=== PATIENT | male | born 1945 ===

== ENCOUNTER 2017-11-08 22:29 | Inpatient (IN) | payer MEDICARE, MEDICAID ==
[2017-11-08] MEDS ORDERED: Albuterol-Ipratrop 3 mg / 0.5 (3 ml) UD ONE ×2 (22:48→23:23)
[2017-11-08] MEDS ORDERED: MethylPREDNISolone 40 mg Vial IVP STA (22:54)
[2017-11-08] MEDS ORDERED: Albuterol-Ipratrop 3 mg / 0.5 (3 ml) UD INH STA ×2 (22:54)
--- NOTE | 2017-11-08 22:58 | C.PDOC ---
History Of Present Illness 72 yo male, h/o of dementia as per previous record, copd, [facility] for wheezing and "agitation". as per record, pt was agitated wiht staff. pt upon arrival calm and cooperative. wheezing b/l. pt oriented x 1. no other complaints. noted previous record with h/o dementia with agiation. Time Seen by Provider: 11/08/17 22:51 Chief Complaint (Nursing): Psychiatric Evaluation Past Medical History Reviewed: Historical Data, Nursing Documentation, Vital Signs Vital Signs: Last Vital Signs Temp 98 F 11/09/17 00:30 Pulse 92 H 11/09/17 00:30 Resp 20 11/09/17 00:45 BP 120/65 11/09/17 00:30 Pulse Ox 95 11/09/17 02:58 - Medical History PMH: Anxiety, Arthritis, CAD, CHF, COPD, Dementia, Emphysema, HTN Denies: Chronic Kidney Disease - [facility] Procedures ASSISTANCE WITH RESPIRATORY VENTILATION, <24 HRS, CPAP (04/19/17) CL REDUC DISLOC-SHOULDER (10/29/12) INTRODUCTION OF ANTI-INFLAM INTO RESP TRACT, VIA OPENING (04/19/17) Family History: States: Unknown Family Hx - Social History Hx Tobacco Use: Yes Hx Alcohol Use: No Hx Substance Use: No - Immunization History Hx Tetanus Toxoid Vaccination: No Hx Influenza Vaccination: Yes Hx Pneumococcal Vaccination: Yes Review Of Systems Respiratory: Positive for: Wheezing Psych: Positive for: Other (agiation) Physical Exam - Physical Exam Appears: Well, No Acute Distress, Other (calm cooperative, oriented x 1) Skin: Normal Color, Warm, Dry Eye(s): bilateral: Normal Inspection, PERRL, EOMI Nose: Normal Throat: Normal Neck: Normal Cardiovascular: Rhythm Regular Respiratory: Wheezing (bl) Gastrointestinal/Abdominal: Normal Exam, Soft, No Tenderness, No Guarding, No Rebound Back: Normal Inspection Extremity: Normal ROM ED Course And Treatment - Laboratory Results Result Diagrams: 11/08/17 23:03 11/08/17 23:03 ECG: Interpreted By Me, Viewed By Me ECG Rhythm: Sinus Rhythm Interpretation Of ECG: No ST/T wave changes Rate From EC (BPM) O2 Sat by Pulse Oximetry: 95 (ON RA) Pulse Ox Interpretation: Normal - Radiology CXR: Interpreted by Me, Viewed By Me CXR Interpretation: Yes: No Acute Disease. No: Infiltrates Medical Decision Making Medical Decision Making: copd, r/o delirium vs dementia. labs imaging pending wheezing improving. head ct neg. cxr neg. r/o deliriumvs dementia. pt cannot be medically cleared for pyschiatric eval, accepted by dr beverly sanabria. Disposition - Disposition Disposition: HOSPITALIZED Disposition Time: 02:00 Condition: GOOD - Clinical Impression Clinical Impression: COPD exacerbation, Agitation
[2017-11-08 23:06] LABS: BASO % 0.2 % (0.0-2.0); EOS # 0.1 K/uL (0.0-0.7); EOS % 0.6 % (0.0-4.0); HEMOGLOBIN 12.8 g/dL (12.0-18.0); LYMPH # 3.4 K/uL (1.0-4.3); LYMPH % 31.2 % (20.0-40.0); MEAN CELL VOLUME 79.7 fL (80.0-94.0); MEAN CORPUSCULAR HEMOGLOBIN 26.2 pg (27.0-31.0); MEAN CORPUSCULAR HGB CONC 32.9 g/dL (33.0-37.0); MEAN PLATELET VOLUME 7.3 fL (7.2-11.7); MONO # 1.2 K/uL (0.0-0.8); MONO % 11.1 % (0.0-10.0); NEUT # 6.3 K/uL (1.8-7.0); NEUT % 56.9 % (50.0-75.0); RBC 4.87 Mil/uL (4.40-5.90); RED CELL DISTRIBUTION WIDTH 17.1 % (11.5-14.5)
[2017-11-08 23:17] LABS: PROTHROMBIN TIME 10.6 SECONDS (9.7-12.2)
[2017-11-08 23:23] LABS: ACETAMINOPHEN < 10.0 ug/mL (10.0-30.0); SALICYLATE < 1.0 mg/dL 1
[2017-11-08 23:26] LABS: ALB/GLOB RATIO 1.3 (1.0-2.1); ALT/SGPT 22 U/L (21-72); AST/SGOT 26 U/L (17-59); BLOOD UREA NITROGEN 13 mg/dL (9-20); CALCIUM 8.7 mg/dl (8.6-10.4); GFR NON-AFRICAN AMERICAN > 60
[2017-11-09] MEDS: MethylPREDNISolone 40 mg Vial IVP SCH ×3 (05:27→22:36)
[2017-11-09] MEDS ORDERED: Fluticasone-Salmeterol 250-50mcg Diskus INH SCH ×2 (08:00→20:00)
--- NOTE | 2017-11-09 08:43 | CT ---
Date of service: 11/08/2017 PROCEDURE: CT HEAD WITHOUT CONTRAST. HISTORY: Altered mental status COMPARISON: None available. TECHNIQUE: Axial computed tomography images were obtained through the head/brain without intravenous contrast. Radiation dose: Total exam DLP = 1097 mGy-cm. This CT exam was performed using one or more of the following dose reduction techniques: Automated exposure control, adjustment of the mA and/or kV according to patient size, and/or use of iterative reconstruction technique. FINDINGS: HEMORRHAGE: No intracranial hemorrhage. BRAIN: Cerebral and cerebellar atrophy. Scattered focal lucencies in the subcortical and periventricular white matter suggestive for severe chronic microvascular ischemic change. Right basal ganglia lacunar infarct. Relative atrophy of the anterior temporal lobes. VENTRICLES: Prominent. CALVARIUM: Unremarkable. PARANASAL SINUSES: Unremarkable as visualized. No significant inflammatory changes. MASTOID AIR CELLS: Unremarkable as visualized. No inflammatory changes. OTHER FINDINGS: Intracranial arterial calcifications. IMPRESSION: Cerebral and cerebellar atrophy. Small vessel ischemic/degenerative changes. If symptoms persist, consider correlation with MRI. These findings were preliminarily reported at 11:25 p.m. on 11/08/[address] Kareem Chong from [facility].
--- NOTE | 2017-11-09 09:09 | RAD ---
Date of service: 11/08/2017 PROCEDURE: CHEST RADIOGRAPH, 1 VIEW HISTORY: chest pain COMPARISON: No comparison chest x-ray. A right shoulder 10/29/2012 study noted FINDINGS: LUNGS: No consolidation. AP apical lordotic projection. Lung volumes appear increased-hemidiaphragms appear flattened. COPD/emphysema inferred. Trace bibasilar discoid atelectasis and/or trace fibrosis here. No acute cardiopulmonary pathology perceived. PLEURA: No pneumothorax or pleural fluid seen. CARDIOVASCULAR: Normal. OSSEOUS STRUCTURES: A approximately 1 cm hyperdensity projects over the inferior aspect of the right acromion not appreciated on the 2013 right shoulder x-ray. An interval calcific bursitis and/or calcific rotator cuff tendinopathy here are considerations. There is equivocal lucency an equivocal subtle cortical irregularity of the right humeral head on this exam oval unclear significance is no history of trauma. Correlate clinically. If symptoms do exist on the right side consider right shoulder x-ray for further evaluation Cervical degenerative osseous hypertrophic changes. VISUALIZED UPPER ABDOMEN: Normal. OTHER FINDINGS: Surgical clips over left neck IMPRESSION: No acute cardiopulmonary pathology. Bilateral hyperaeration - COPD/ emphysema suspect. Right shoulder changes as above. Correlate clinically as detailed above
[2017-11-09] MEDS ORDERED: Metoprolol Succinate 25 mg XL Tab PO SCH (10:00)
--- NOTE | 2017-11-09 10:28 | PCM.PSYCH ---
Initial Psychiatric Evaluation - Initial Psychiatric Evaluation Chief Complaint (in patient's own words): "you ask too many questions" History of Present Illness and Precipitating Events: PGY-1 Initial Psychiatric Note for Dr. Adams. Patient is a 72 year old male with past history of dementia, COPD, HTN, CAD who is ( lives in [place]), has 3 children, lives in a prison and is a retired [employer] worker. Patient is a poor historian, History was obtained partially from patient and partially from EMR. Patient was [facility] ED from [facility] for agitation and shortness of breath and was admitted for COPD exacerbation. In ED, patient noted to be calm and cooperative. Presently, during my interview patient is noted to be calm and oriented x1 (person) only. When asked for the month and date, patient states "I don't know. I don't keep track of that stuff." Patient states he does not know why he is in the hospital. Denies visual and auditory hallucinations, paranoia, depression, anhedonia, difficulty sleeping, decreased energy, change in appetite , suicidal ideation, homicidal ideation, anxiety and manic symptoms. Denies urinary frequency, hematuria, dysuria, fevers and chills. PMHx: Dementia, COPD, HTN, CAD Psych hospitalizations: none Family Psych hx: unkown Social Hx: former smoker, occasional alcohol use, denies illicit drugs Current Medications: Active Medications Generic Name Dose Route Start Last Admin Trade Name Freq PRN Reason Stop Dose Admin Clopidogrel Bisulfate 75 mg 11/09/17 10:00 Plavix PO DAILY [facility] Clotrimazole 1 gm 11/09/17 10:00 Lotrimin 1% TOP DAILY [facility] Enoxaparin Sodium 40 mg 11/09/17 10:00 Lovenox SC DAILY [facility] Azithromycin 500 mg/ Sodium 250 mls @ 250 mls/hr 11/09/17 10:00 Chloride IVPB DAILY [facility] Protocol Ceftriaxone Sodium 1 gm/ 100 mls @ 100 mls/hr 11/09/17 10:00 Sodium Chloride IVPB DAILY [facility] Protocol Lactic Acid 1 gm 11/09/17 10:00 Lac-Hydrin 12% Lotion (225 G) TOP BID [facility] Methylprednisolone 40 mg 11/09/17 06:00 11/09/17 05:27 Solu-Medrol IVP 40 mg Q8H [facility] Administration Metoprolol Succinate 25 mg 11/09/17 10:00 Toprol Xl PO DAILY [facility] Montelukast Sodium 10 mg 11/09/17 22:00 Singulair PO HS [facility] Pantoprazole Sodium 40 mg 11/09/17 10:00 Protonix Ec Tab PO DAILY [facility] Quetiapine Fumarate 25 mg 11/09/17 10:00 Seroquel PO BID [facility] Fluticasone/Salmeterol 1 puff 11/09/17 08:00 Advair Diskus 250/50 INH RQ12 [facility] Past Psychiatric History - Past Psychiatric History Pertinent Medical Hx (Current Medical&Sleep Prob, Allergies): Allergies Allergy/AdvReac Type Severity Reaction Status Date / Time shellfish derived Allergy ANAPHYLAXIS Verified 11/08/17 22:32 Acetaminophen [Tylenol 325mg tab] 2 tab PO Q4 PRN 04/20/17 Albuterol 0.083% [Albuterol 0.083% Inhal Josey (2.5 mg/3 ml) UD] 3 ml INH Q6 PRN 04/20/17 Metoprolol Succinate XL [Toprol XL] 25 mg PO DAILY 04/20/17 Ammonium Lactate 12% [Lac-Hydrin] 1 TP BID 11/08/17 Budesonide/Formoterol Fumarate [Symbicort] 1 aer IH BID 11/08/17 Clopidogrel [Plavix] 75 mg PO DAILY 11/08/17 Clotrimazole 1% [Lotrimin AF 1%] 10 applic EXT HS 11/08/17 QUEtiapine [Seroquel] 25 mg PO BID 11/08/17 predniSONE [Prednisone] 10 mg PO DAILY 11/08/17 Review of Systems - Psychiatric Psychiatric: Other (disoriented to time and place). absent: Abnormal Sleep Pattern, Anhedonia, Anxiety, Auditory Hallucinations, Change in Appetite, Depression, Difficulty Concentrating, Hallucinations, Homicidal Ideation, Hopelessness, Irritability, Memory Loss, Mood Swings, Panic Attacks, Paranoia, Suicidal Ideation, Visual Hallucinations, Tactile Hallucinations Mental Status Examination - Personal Presentation Personal Presentation: Looks stated age - Affect Affect: Broad - Motor Activity Motor Activity: Calm, Other (lip smacking) - Reliability in Providing Information Reliability in Providing Information: Poor, due to cognitve impairment - Speech Speech: Organized - Mood Mood: Other (appropriate) - Cognitive Functions Orientation: Person Sensorium: Alert Attention/Concentration: Easily distracted Estimate of Intelligence: Average Judgement: Imparied, as evidence by: Lack of insight into illness Memory: Recent imparied as evidence by:Inability to complete 3/3 object recall - Risk Risk: Other (cognitive impairment) - Limitations Limitations: Decreased memory, recent DSM 5 DX - DSM 5 DSM 5 Diagnosis: Major neurocognitive disorder - Recommended/Plan of Treatment Treatment Recommendations and Plan of Treatment: Afebrile, continue to monitor rule out source of infection [place] patient Maintain strict day/night cycle MMSE score of 13 with deficits in orientation, attention, and recall, indicating moderate cognitive impairment. - Smoking Cessation Smoking Cessation Initiated: No
[2017-11-09] MEDS: Enoxaparin 40 mg Syringe SC SCH (11:19)
[2017-11-09] MEDS: Pantoprazole 40 mg EC Tab PO SCH (11:19)
[2017-11-09] MEDS: Azithromycin 500 MG in Sodium Chloride 0.9% 250 ML IVPB SCH (11:21)
[2017-11-09] MEDS: Clotrimazole 1% Cream 15 GM TUBE TOP SCH (13:43)
[2017-11-09] MEDS: Ammonium Lactate 12% Lotion (225 g) TOP SCH ×2 (13:44→18:38)
--- NOTE | 2017-11-09 15:17 | CP.PCM.CON ---
Past Patient History - Past Medical History & Family History Past Medical History?: Yes - Past Social History Smoking Status: Former Smoker - CARDIAC Hx Congestive Heart Failure: Yes Hx Hypertension: Yes - PULMONARY Hx Chronic Obstructive Pulmonary Disease (COPD): Yes - NEUROLOGICAL Hx Dementia: Yes - HEENT Hx HEENT Problems: No Hx Cataracts: Yes - RENAL Hx Chronic Kidney Disease: No - ENDOCRINE/METABOLIC Hx Endocrine Disorders: Yes Hx Diabetes Mellitus Type 2: Yes - HEMATOLOGICAL/ONCOLOGICAL Hx Blood Disorders: No - INTEGUMENTARY Hx Dermatological Problems: No - MUSCULOSKELETAL/RHEUMATOLOGICAL Hx Arthritis: Yes - GASTROINTESTINAL Hx Gastrointestinal Disorders: No - GENITOURINARY/GYNECOLOGICAL Hx Genitourinary Disorders: No - PSYCHIATRIC Hx Anxiety: Yes Hx Substance Use: No - SURGICAL HISTORY Hx Surgeries: No - ANESTHESIA Hx Anesthesia: No Meds Allergies/Adverse Reactions: Allergies Allergy/AdvReac Type Severity Reaction Status Date / Time shellfish derived Allergy ANAPHYLAXIS Verified 11/08/17 22:32 - Medications Medications: Current Medications Clopidogrel Bisulfate (Plavix) 75 mg PO DAILY [facility] Last Admin: 11/09/17 11:18 Dose: 75 mg Clotrimazole (Lotrimin 1%) 1 gm TOP DAILY [facility] Last Admin: 11/09/17 13:43 Dose: 1 applic Enoxaparin Sodium (Lovenox) 40 mg SC DAILY [facility] Last Admin: 11/09/17 11:19 Dose: 40 mg Azithromycin 500 mg/ Sodium (Chloride) 250 mls @ 250 mls/hr IVPB DAILY [facility] PRN Reason: Protocol Last Admin: 11/09/17 11:21 Dose: 250 mls/hr Ceftriaxone Sodium 1 gm/ (Sodium Chloride) 100 mls @ 100 mls/hr IVPB DAILY [facility] PRN Reason: Protocol Last Admin: 11/09/17 11:21 Dose: 100 mls/hr Lactic Acid (Lac-Hydrin 12% Lotion (225 G)) 1 gm TOP BID [facility] Last Admin: 11/09/17 13:44 Dose: Not Given Methylprednisolone (Solu-Medrol) 40 mg IVP Q8H [facility] Last Admin: 11/09/17 13:43 Dose: 40 mg Metoprolol Succinate (Toprol Xl) 25 mg PO DAILY [facility] Last Admin: 11/09/17 11:18 Dose: 25 mg Montelukast Sodium (Singulair) 10 mg PO [facility] Pantoprazole Sodium (Protonix Ec Tab) 40 mg PO DAILY [facility] Last Admin: 11/09/17 11:19 Dose: 40 mg Quetiapine Fumarate (Seroquel) 25 mg PO BID [facility] Last Admin: 11/09/17 11:18 Dose: 25 mg Fluticasone/Salmeterol (Advair Diskus 250/50) 1 puff INH RQ12 [facility] Results - Vital Signs Recent Vital Signs: Last Vital Signs Temp 97.4 F L 11/09/17 07:33 Pulse 86 11/09/17 07:33 Resp 18 11/09/17 07:33 BP 143/79 11/09/17 07:33 Pulse Ox 97 11/09/17 07:33 - Labs Result Diagrams: 11/08/17 23:03 11/08/17 23:03 Labs: Laboratory Results - last 24 hr 11/08/17 11/08/17 11/08/17 22:35 23:03 23:03 WBC 11.0 H RBC 4.87 Hgb 12.8 Hct 38.8 MCV 79.7 L MCH 26.2 L MCHC 32.9 L RDW 17.1 H Plt Count 292 MPV 7.3 Neut % (Auto) 56.9 Lymph % (Auto) 31.2 [place] % (Auto) 11.1 H Eos % (Auto) 0.6 Baso % (Auto) 0.2 Neut # (Auto) 6.3 Lymph # (Auto) 3.4 [place] # (Auto) 1.2 H Eos # (Auto) 0.1 Baso # (Auto) 0.0 PT 10.6 INR 1.0 APTT 29 Sodium Potassium Chloride Carbon Dioxide Anion Gap BUN Creatinine Est GFR ( Amer) Est GFR (Non-Af Amer) POC Glucose (mg/dL) 111 H Random Glucose Calcium Total Bilirubin AST ALT Alkaline Phosphatase Troponin I Total Protein Albumin Globulin Albumin/Globulin Ratio Salicylates Acetaminophen Alcohol, Quantitative 11/08/17 11/08/17 23:03 23:03 WBC RBC Hgb Hct MCV MCH MCHC RDW Plt Count MPV Neut % (Auto) Lymph % (Auto) [place] % (Auto) Eos % (Auto) Baso % (Auto) Neut # (Auto) Lymph # (Auto) [place] # (Auto) Eos # (Auto) Baso # (Auto) PT INR APTT Sodium 140 Potassium 4.0 Chloride 105 Carbon Dioxide 21 L Anion Gap 18 BUN 13 Creatinine 0.7 L Est GFR ( Amer) > 60 Est GFR (Non-Af Amer) > 60 POC Glucose (mg/dL) Random Glucose 102 Calcium 8.7 Total Bilirubin 0.2 AST 26 ALT 22 Alkaline Phosphatase 59 Troponin I < 0.0120 Total Protein 7.0 Albumin 4.0 Globulin 3.1 Albumin/Globulin Ratio 1.3 Salicylates < 1.0 Acetaminophen < 10.0 L Alcohol, Quantitative < 10
--- NOTE | 2017-11-09 16:03 | CP.PCM.HP ---
History of Present Illness - History of Present Illness History of Present Illness: 80-year-old male date PMH of anxiety, CAD, COPD, CHF, emphysema, HTN sent from [facility] for wheezing and agitation. Patient is calm and cooperative upon arrival. No fever, chills, abdominal pain, palpitations, chest pain. Noted previous record with history of dementia with agitation Present on Admission - Present on Admission Any Indicators Present on Admission: No Past Patient History - Past Medical History & Family History Past Medical History?: Yes - Past Social History Smoking Status: Former Smoker - CARDIAC Hx Congestive Heart Failure: Yes Hx Hypertension: Yes - PULMONARY Hx Chronic Obstructive Pulmonary Disease (COPD): Yes - NEUROLOGICAL Hx Dementia: Yes - HEENT Hx HEENT Problems: No Hx Cataracts: Yes - RENAL Hx Chronic Kidney Disease: No - ENDOCRINE/METABOLIC Hx Endocrine Disorders: Yes Hx Diabetes Mellitus Type 2: Yes - HEMATOLOGICAL/ONCOLOGICAL Hx Blood Disorders: No - INTEGUMENTARY Hx Dermatological Problems: No - MUSCULOSKELETAL/RHEUMATOLOGICAL Hx Arthritis: Yes - GASTROINTESTINAL Hx Gastrointestinal Disorders: No - GENITOURINARY/GYNECOLOGICAL Hx Genitourinary Disorders: No - PSYCHIATRIC Hx Anxiety: Yes Hx Substance Use: No - SURGICAL HISTORY Hx Surgeries: No - ANESTHESIA Hx Anesthesia: No Meds Allergies/Adverse Reactions: Allergies Allergy/AdvReac Type Severity Reaction Status Date / Time shellfish derived Allergy ANAPHYLAXIS Verified 11/08/17 22:32 Physical Exam - Constitutional Appears: Well - Head Exam Head Exam: ATRAUMATIC, NORMAL INSPECTION, NORMOCEPHALIC - Eye Exam Eye Exam: EOMI, Normal appearance, PERRL Pupil Exam: NORMAL ACCOMODATION, PERRL - ENT Exam ENT Exam: Mucous Membranes Moist, Normal Exam - Neck Exam Neck exam: Positive for: Normal Inspection - Respiratory Exam Respiratory Exam: Decreased Breath Sounds - Cardiovascular Exam Cardiovascular Exam: REGULAR RHYTHM, +S1, +S2 - GI/Abdominal Exam GI & Abdominal Exam: Diminished Bowel Sounds, Soft - Rectal Exam Rectal Exam: Deferred Results - Vital Signs Recent Vital Signs: Last Vital Signs Temp 97.4 F L 11/09/17 07:33 Pulse 86 11/09/17 07:33 Resp 18 11/09/17 07:33 BP 143/79 11/09/17 07:33 Pulse Ox 97 11/09/17 07:33 - Labs Result Diagrams: 11/12/17 06:53 09/07/18 06:53 Labs: Laboratory Results - last 24 hr 11/08/17 11/08/17 11/08/17 22:35 23:03 23:03 WBC 11.0 H RBC 4.87 Hgb 12.8 Hct 38.8 MCV 79.7 L MCH 26.2 L MCHC 32.9 L RDW 17.1 H Plt Count 292 MPV 7.3 Neut % (Auto) 56.9 Lymph % (Auto) 31.2 [place] % (Auto) 11.1 H Eos % (Auto) 0.6 Baso % (Auto) 0.2 Neut # (Auto) 6.3 Lymph # (Auto) 3.4 [place] # (Auto) 1.2 H Eos # (Auto) 0.1 Baso # (Auto) 0.0 PT 10.6 INR 1.0 APTT 29 Sodium Potassium Chloride Carbon Dioxide Anion Gap BUN Creatinine Est GFR ( Amer) Est GFR (Non-Af Amer) POC Glucose (mg/dL) 111 H Random Glucose Calcium Total Bilirubin AST ALT Alkaline Phosphatase Troponin I Total Protein Albumin Globulin Albumin/Globulin Ratio Salicylates Acetaminophen Alcohol, Quantitative 11/08/17 11/08/17 23:03 23:03 WBC RBC Hgb Hct MCV MCH MCHC RDW Plt Count MPV Neut % (Auto) Lymph % (Auto) [place] % (Auto) Eos % (Auto) Baso % (Auto) Neut # (Auto) Lymph # (Auto) [place] # (Auto) Eos # (Auto) Baso # (Auto) PT INR APTT Sodium 140 Potassium 4.0 Chloride 105 Carbon Dioxide 21 L Anion Gap 18 BUN 13 Creatinine 0.7 L Est GFR ( Amer) > 60 Est GFR (Non-Af Amer) > 60 POC Glucose (mg/dL) Random Glucose 102 Calcium 8.7 Total Bilirubin 0.2 AST 26 ALT 22 Alkaline Phosphatase 59 Troponin I < 0.0120 Total Protein 7.0 Albumin 4.0 Globulin 3.1 Albumin/Globulin Ratio 1.3 Salicylates < 1.0 Acetaminophen < 10.0 L Alcohol, Quantitative < 10 Assessment & Plan - Assessment and Plan (Free Text) Plan: family bedside patient is confused claims patient is in [place] 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
[2017-11-09] MEDS ORDERED: Albuterol 0.083% Inhal Sol (2.5 mg/3 mL) UD INH PRN (18:17)
[2017-11-09] MEDS ORDERED: DiphenhydrAMINE 50 mg/ml Inj IVP ONE (23:18)
[2017-11-10] MEDS: MethylPREDNISolone 40 mg Vial IVP SCH ×3 (06:37→21:42)
--- NOTE | 2017-11-10 09:14 | CARD ---
APPROVED REPORT Date of service: 11/08/2017 EKG Measurement Heart [id number] <Conclusion> Normal sinus rhythm Normal ECG
[2017-11-10] MEDS: Enoxaparin 40 mg Syringe SC SCH (10:00)
[2017-11-10] MEDS: Ammonium Lactate 12% Lotion (225 g) TOP SCH ×2 (11:31→17:26)
[2017-11-10] MEDS: Pantoprazole 40 mg EC Tab PO SCH (11:31)
[2017-11-10] MEDS: Clotrimazole 1% Cream 15 GM TUBE TOP SCH (11:31)
[2017-11-10] MEDS: Azithromycin 500 MG in Sodium Chloride 0.9% 250 ML IVPB SCH (11:33)
[2017-11-10] MEDS: Albuterol 0.083% Inhal Sol (2.5 mg/3 mL) UD INH SCH ×2 (13:43→20:41)
[2017-11-10] MEDS ORDERED: MethylPREDNISolone 40 mg Vial IVP SCH (18:00)
--- NOTE | 2017-11-10 19:06 | CP.PCM.PN ---
Subjective - Date & Time of Evaluation Date of Evaluation: 11/10/17 Time of Evaluation: 19:06 Objective - Vital Signs/Intake and Output Vital Signs (last 24 hours): Temp Pulse Resp BP Pulse Ox 98.6 F 78 18 132/78 94 L 11/10/17 16:00 11/10/17 16:00 11/10/17 16:00 11/10/17 16:00 11/10/17 16:00 Intake and Output: 11/10/17 11/11/17 18:59 06:59 Output Total 800 Balance -800 - Medications Medications: Current Medications Albuterol Sulfate (Albuterol 0.083% Inhal Josey (2.5 Mg/3 Ml) Ud) 2.5 mg INH RQ6 [facility] Last Admin: 11/10/17 13:43 Dose: 2.5 mg Clopidogrel Bisulfate (Plavix) 75 mg PO DAILY [facility] Last Admin: 11/10/17 11:32 Dose: Not Given Clotrimazole (Lotrimin 1%) 1 gm TOP DAILY [facility] Last Admin: 11/10/17 11:31 Dose: 1 applic Donepezil HCl (Aricept) 5 mg PO HS [facility] Enoxaparin Sodium (Lovenox) 40 mg SC DAILY [facility] Last Admin: 11/10/17 10:00 Dose: 40 mg Haloperidol (Haldol) 2 mg PO Q6H PRN PRN Reason: Agitation Last Admin: 11/10/17 14:18 Dose: 2 mg Azithromycin 500 mg/ Sodium (Chloride) 250 mls @ 250 mls/hr IVPB DAILY [facility] PRN Reason: Protocol Last Admin: 11/10/17 11:33 Dose: 250 mls/hr Ceftriaxone Sodium 1 gm/ (Sodium Chloride) 100 mls @ 100 mls/hr IVPB DAILY [facility] PRN Reason: Protocol Last Admin: 11/10/17 11:32 Dose: 100 mls/hr Lactic Acid (Lac-Hydrin 12% Lotion (225 G)) 1 gm TOP BID [facility] Last Admin: 11/10/17 17:26 Dose: 1 applic Methylprednisolone (Solu-Medrol) 40 mg IVP Q8H [facility] Last Admin: 11/10/17 14:19 Dose: 40 mg Montelukast Sodium (Singulair) 10 mg PO HS [facility] Last Admin: 11/09/17 22:36 Dose: 10 mg Pantoprazole Sodium (Protonix Ec Tab) 40 mg PO DAILY [facility] Last Admin: 11/10/17 11:31 Dose: 40 mg Propranolol HCl (Inderal) 10 mg PO TID [facility] Last Admin: 11/10/17 17:25 Dose: 10 mg Quetiapine Fumarate (Seroquel) 25 mg PO BID [facility] Last Admin: 11/10/17 18:21 Dose: 25 mg Fluticasone/Salmeterol (Advair Diskus 250/50) 1 puff INH RQ12 [facility] - Labs Labs: 11/08/17 23:03 11/08/17 23:03 PT 10.6 SECONDS (9.7-12.2) 11/08/17 23:03 INR 1.0 11/08/17 23:03 APTT 29 SECONDS (21-34) 11/08/17 23:03
--- NOTE | 2017-11-10 21:41 | CP.PCM.PN ---
Subjective - Date & Time of Evaluation Date of Evaluation: 11/10/17 Time of Evaluation: 08:00 - Subjective Subjective: clinically same Objective - Vital Signs/Intake and Output Vital Signs (last 24 hours): Temp Pulse Resp BP Pulse Ox 98.6 F 78 18 132/78 94 L 11/10/17 16:00 11/10/17 16:00 11/10/17 16:00 11/10/17 16:00 11/10/17 16:00 Intake and Output: 11/10/17 11/11/17 18:59 06:59 Output Total 800 Balance -800 - Medications Medications: Current Medications Albuterol Sulfate (Albuterol 0.083% Inhal Josey (2.5 Mg/3 Ml) Ud) 2.5 mg INH RQ6 [facility] Last Admin: 11/10/17 20:41 Dose: 2.5 mg Clopidogrel Bisulfate (Plavix) 75 mg PO DAILY [facility] Last Admin: 11/10/17 11:32 Dose: Not Given Clotrimazole (Lotrimin 1%) 1 gm TOP DAILY [facility] Last Admin: 11/10/17 11:31 Dose: 1 applic Donepezil HCl (Aricept) 5 mg PO HS [facility] Enoxaparin Sodium (Lovenox) 40 mg SC DAILY [facility] Last Admin: 11/10/17 10:00 Dose: 40 mg Haloperidol (Haldol) 2 mg PO Q6H PRN PRN Reason: Agitation Last Admin: 11/10/17 14:18 Dose: 2 mg Azithromycin 500 mg/ Sodium (Chloride) 250 mls @ 250 mls/hr IVPB DAILY [facility] PRN Reason: Protocol Last Admin: 11/10/17 11:33 Dose: 250 mls/hr Ceftriaxone Sodium 1 gm/ (Sodium Chloride) 100 mls @ 100 mls/hr IVPB DAILY [facility] PRN Reason: Protocol Last Admin: 11/10/17 11:32 Dose: 100 mls/hr Lactic Acid (Lac-Hydrin 12% Lotion (225 G)) 1 gm TOP BID [facility] Last Admin: 11/10/17 17:26 Dose: 1 applic Methylprednisolone (Solu-Medrol) 40 mg IVP Q8H [facility] Last Admin: 11/10/17 14:19 Dose: 40 mg Montelukast Sodium (Singulair) 10 mg PO HS [facility] Last Admin: 11/09/17 22:36 Dose: 10 mg Pantoprazole Sodium (Protonix Ec Tab) 40 mg PO DAILY [facility] Last Admin: 11/10/17 11:31 Dose: 40 mg Propranolol HCl (Inderal) 10 mg PO TID [facility] Last Admin: 11/10/17 17:25 Dose: 10 mg Quetiapine Fumarate (Seroquel) 25 mg PO BID [facility] Last Admin: 11/10/17 18:21 Dose: 25 mg Fluticasone/Salmeterol (Advair Diskus 250/50) 1 puff INH RQ12 [facility] - Labs Labs: 11/08/17 23:03 11/08/17 23:03 PT 10.6 SECONDS (9.7-12.2) 11/08/17 23:03 INR 1.0 11/08/17 23:03 APTT 29 SECONDS (21-34) 11/08/17 23:03 - Constitutional Appears: Well - Head Exam Head Exam: ATRAUMATIC, NORMAL INSPECTION, NORMOCEPHALIC - Eye Exam Eye Exam: EOMI, Normal appearance, PERRL Pupil Exam: NORMAL ACCOMODATION, PERRL - ENT Exam ENT Exam: Mucous Membranes Moist, Normal Exam - Neck Exam Neck Exam: Full ROM, Normal Inspection. absent: Lymphadenopathy - Respiratory Exam Respiratory Exam: Decreased Breath Sounds - Cardiovascular Exam Cardiovascular Exam: REGULAR RHYTHM, +S1, +S2 - GI/Abdominal Exam GI & Abdominal Exam: Soft, Diminished Bowel Sounds - Rectal Exam Rectal Exam: Deferred
--- NOTE | 2017-11-10 23:09 | CP.PCM.PCO ---
Physician Communication Note - Physician Communication Note Physician Communication Note: Case d/w PA; aricept, depakte, inderal and prn haldol started for agitation
[2017-11-11] MEDS: Albuterol 0.083% Inhal Sol (2.5 mg/3 mL) UD INH SCH ×4 (01:33→20:36)
[2017-11-11] MEDS: MethylPREDNISolone 40 mg Vial IVP SCH ×2 (05:30→21:40)
[2017-11-11] MEDS: Enoxaparin 40 mg Syringe SC SCH (11:25)
[2017-11-11] MEDS: Divalproex 250 mg DR Tab PO SCH ×2 (11:26→17:27)
[2017-11-11] MEDS: Pantoprazole 40 mg EC Tab PO SCH (11:26)
[2017-11-11] MEDS: Azithromycin 500 MG in Sodium Chloride 0.9% 250 ML IVPB SCH (11:28)
[2017-11-11] MEDS: Clotrimazole 1% Cream 15 GM TUBE TOP SCH (11:43)
[2017-11-11] MEDS: Ammonium Lactate 12% Lotion (225 g) TOP SCH ×2 (11:43→19:00)
--- NOTE | 2017-11-11 15:30 | CP.PCM.PN ---
Subjective - Date & Time of Evaluation Date of Evaluation: 11/11/17 Time of Evaluation: 08:00 - Subjective Subjective: clinically same Objective - Vital Signs/Intake and Output Vital Signs (last 24 hours): Temp Pulse Resp BP Pulse Ox 97.5 F L 69 20 156/79 H 97 11/11/17 07:45 11/11/17 07:45 11/11/17 07:45 11/11/17 07:45 11/11/17 07:45 Intake and Output: 11/11/17 11/11/17 06:59 18:59 Intake Total 200 Balance 200 - Medications Medications: Current Medications Albuterol Sulfate (Albuterol 0.083% Inhal Josey (2.5 Mg/3 Ml) Ud) 2.5 mg INH RQ6 [facility] Last Admin: 11/11/17 13:52 Dose: 2.5 mg Clopidogrel Bisulfate (Plavix) 75 mg PO DAILY [facility] Last Admin: 11/11/17 11:27 Dose: 75 mg Clotrimazole (Lotrimin 1%) 1 gm TOP DAILY [facility] Last Admin: 11/11/17 11:43 Dose: 1 applic Divalproex Sodium (Depakote Dr) 250 mg PO BID [facility] Last Admin: 11/11/17 11:26 Dose: 250 mg Donepezil HCl (Aricept) 5 mg PO HS [facility] Last Admin: 11/10/17 21:42 Dose: 5 mg Enoxaparin Sodium (Lovenox) 40 mg SC DAILY [facility] Last Admin: 11/11/17 11:25 Dose: 40 mg Haloperidol (Haldol) 2 mg PO Q6H PRN PRN Reason: Agitation Last Admin: 11/11/17 11:27 Dose: 2 mg Azithromycin 500 mg/ Sodium (Chloride) 250 mls @ 250 mls/hr IVPB DAILY [facility] PRN Reason: Protocol Last Admin: 11/11/17 11:28 Dose: 250 mls/hr Ceftriaxone Sodium 1 gm/ (Sodium Chloride) 100 mls @ 100 mls/hr IVPB DAILY [facility] PRN Reason: Protocol Last Admin: 11/11/17 11:28 Dose: 100 mls/hr Lactic Acid (Lac-Hydrin 12% Lotion (225 G)) 1 gm TOP BID [facility] Last Admin: 11/11/17 11:43 Dose: 1 applic Methylprednisolone (Solu-Medrol) 40 mg IVP Q8H [facility] Last Admin: 11/11/17 05:30 Dose: 40 mg Montelukast Sodium (Singulair) 10 mg PO HS [facility] Last Admin: 11/10/17 21:42 Dose: 10 mg Pantoprazole Sodium (Protonix Ec Tab) 40 mg PO DAILY [facility] Last Admin: 11/11/17 11:26 Dose: 40 mg Propranolol HCl (Inderal) 10 mg PO TID [facility] Last Admin: 11/11/17 11:27 Dose: 10 mg Quetiapine Fumarate (Seroquel) 25 mg PO BID [facility] Last Admin: 11/11/17 11:27 Dose: 25 mg Fluticasone/Salmeterol (Advair Diskus 250/50) 1 puff INH RQ12 [facility] - Labs Labs: 11/08/17 23:03 11/08/17 23:03 PT 10.6 SECONDS (9.7-12.2) 11/08/17 23:03 INR 1.0 11/08/17 23:03 APTT 29 SECONDS (21-34) 11/08/17 23:03
--- NOTE | 2017-11-11 18:36 | CP.PCM.PN ---
Subjective - Date & Time of Evaluation Date of Evaluation: 11/11/17 Time of Evaluation: 18:36 Objective - Vital Signs/Intake and Output Vital Signs (last 24 hours): Temp Pulse Resp BP Pulse Ox 98.1 F 73 20 140/85 95 11/11/17 16:00 11/11/17 16:00 11/11/17 16:00 11/11/17 16:00 11/11/17 16:00 Intake and Output: 11/11/17 11/11/17 06:59 18:59 Intake Total 200 Balance 200 - Medications Medications: Current Medications Albuterol Sulfate (Albuterol 0.083% Inhal Josey (2.5 Mg/3 Ml) Ud) 2.5 mg INH RQ6 [facility] Last Admin: 11/11/17 13:52 Dose: 2.5 mg Clopidogrel Bisulfate (Plavix) 75 mg PO DAILY [facility] Last Admin: 11/11/17 11:27 Dose: 75 mg Clotrimazole (Lotrimin 1%) 1 gm TOP DAILY [facility] Last Admin: 11/11/17 11:43 Dose: 1 applic Divalproex Sodium (Depakote Dr) 250 mg PO BID [facility] Last Admin: 11/11/17 17:27 Dose: 250 mg Donepezil HCl (Aricept) 5 mg PO HS [facility] Last Admin: 11/10/17 21:42 Dose: 5 mg Enoxaparin Sodium (Lovenox) 40 mg SC DAILY [facility] Last Admin: 11/11/17 11:25 Dose: 40 mg Haloperidol (Haldol) 2 mg PO Q6H PRN PRN Reason: Agitation Last Admin: 11/11/17 11:27 Dose: 2 mg Azithromycin 500 mg/ Sodium (Chloride) 250 mls @ 250 mls/hr IVPB DAILY [facility] PRN Reason: Protocol Last Admin: 11/11/17 11:28 Dose: 250 mls/hr Ceftriaxone Sodium 1 gm/ (Sodium Chloride) 100 mls @ 100 mls/hr IVPB DAILY [facility] PRN Reason: Protocol Last Admin: 11/11/17 11:28 Dose: 100 mls/hr Lactic Acid (Lac-Hydrin 12% Lotion (225 G)) 1 gm TOP BID [facility] Last Admin: 11/11/17 11:43 Dose: 1 applic Methylprednisolone (Solu-Medrol) 40 mg IVP Q8H [facility] Last Admin: 11/11/17 05:30 Dose: 40 mg Montelukast Sodium (Singulair) 10 mg PO HS [facility] Last Admin: 11/10/17 21:42 Dose: 10 mg Pantoprazole Sodium (Protonix Ec Tab) 40 mg PO DAILY [facility] Last Admin: 11/11/17 11:26 Dose: 40 mg Propranolol HCl (Inderal) 10 mg PO TID [facility] Last Admin: 11/11/17 17:29 Dose: 10 mg Quetiapine Fumarate (Seroquel) 25 mg PO BID [facility] Last Admin: 11/11/17 17:28 Dose: 25 mg Fluticasone/Salmeterol (Advair Diskus 250/50) 1 puff INH RQ12 [facility] - Labs Labs: 11/08/17 23:03 11/08/17 23:03 PT 10.6 SECONDS (9.7-12.2) 11/08/17 23:03 INR 1.0 11/08/17 23:03 APTT 29 SECONDS (21-34) 11/08/17 23:03
[2017-11-12] MEDS: Albuterol 0.083% Inhal Sol (2.5 mg/3 mL) UD INH SCH ×5 (02:28→20:50)
[2017-11-12] MEDS: MethylPREDNISolone 40 mg Vial IVP SCH ×3 (05:33→21:21)
[2017-11-12 07:02] LABS: BASO % 0.3 % (0.0-2.0); HEMOGLOBIN 12.5 g/dL (12.0-18.0); LYMPH # 1.9 K/uL (1.0-4.3); LYMPH % 15.7 % (20.0-40.0); MEAN PLATELET VOLUME 7.4 fL (7.2-11.7); MONO # 0.6 K/uL (0.0-0.8); MONO % 5.2 % (0.0-10.0); NEUT # 9.5 K/uL (1.8-7.0); NEUT % 78.8 % (50.0-75.0); RBC 4.78 Mil/uL (4.40-5.90); RED CELL DISTRIBUTION WIDTH 16.6 % (11.5-14.5); WHITE BLOOD COUNT 12.1 K/uL (4.8-10.8)
[2017-11-12 07:28] LABS: BLOOD UREA NITROGEN 14 mg/dL (9-20); CALCIUM 8.3 mg/dl (8.6-10.4); GFR NON-AFRICAN AMERICAN > 60
--- NOTE | 2017-11-12 09:39 | CP.PCM.PN ---
Subjective - Date & Time of Evaluation Date of Evaluation: 11/12/17 Time of Evaluation: 07:45 - Subjective Subjective: clinically same Objective - Vital Signs/Intake and Output Vital Signs (last 24 hours): Temp Pulse Resp BP Pulse Ox 98.4 F 71 20 152/82 H 96 11/12/17 07:48 11/12/17 07:48 11/12/17 07:48 11/12/17 07:48 11/12/17 07:48 Intake and Output: 11/12/17 11/12/17 06:59 18:59 Intake Total 480 Balance 480 - Medications Medications: Current Medications Albuterol Sulfate (Albuterol 0.083% Inhal Josey (2.5 Mg/3 Ml) Ud) 2.5 mg INH RQ6 [facility] Last Admin: 11/12/17 07:42 Dose: Not Given Clopidogrel Bisulfate (Plavix) 75 mg PO DAILY [facility] Last Admin: 11/11/17 11:27 Dose: 75 mg Clotrimazole (Lotrimin 1%) 1 gm TOP DAILY [facility] Last Admin: 11/11/17 11:43 Dose: 1 applic Divalproex Sodium (Depakote Dr) 250 mg PO BID [facility] Last Admin: 11/11/17 17:27 Dose: 250 mg Donepezil HCl (Aricept) 5 mg PO HS [facility] Last Admin: 11/11/17 21:39 Dose: 5 mg Enoxaparin Sodium (Lovenox) 40 mg SC DAILY [facility] Last Admin: 11/11/17 11:25 Dose: 40 mg Haloperidol (Haldol) 2 mg PO Q6H PRN PRN Reason: Agitation Last Admin: 11/11/17 22:48 Dose: 2 mg Azithromycin 500 mg/ Sodium (Chloride) 250 mls @ 250 mls/hr IVPB DAILY [facility] PRN Reason: Protocol Last Admin: 11/11/17 11:28 Dose: 250 mls/hr Ceftriaxone Sodium 1 gm/ (Sodium Chloride) 100 mls @ 100 mls/hr IVPB DAILY [facility] PRN Reason: Protocol Last Admin: 11/11/17 11:28 Dose: 100 mls/hr Lactic Acid (Lac-Hydrin 12% Lotion (225 G)) 1 gm TOP BID [facility] Last Admin: 11/11/17 19:00 Dose: 1 applic Methylprednisolone (Solu-Medrol) 40 mg IVP Q8H [facility] Last Admin: 11/12/17 05:33 Dose: 40 mg Montelukast Sodium (Singulair) 10 mg PO HS [facility] Last Admin: 11/11/17 21:42 Dose: 10 mg Pantoprazole Sodium (Protonix Ec Tab) 40 mg PO DAILY [facility] Last Admin: 11/11/17 11:26 Dose: 40 mg Propranolol HCl (Inderal) 10 mg PO TID [facility] Last Admin: 11/11/17 17:29 Dose: 10 mg Quetiapine Fumarate (Seroquel) 25 mg PO BID [facility] Last Admin: 11/11/17 17:28 Dose: 25 mg Fluticasone/Salmeterol (Advair Diskus 250/50) 1 puff INH RQ12 [facility] - Labs Labs: 11/12/17 06:53 11/12/17 06:53 PT 10.6 SECONDS (9.7-12.2) 11/08/17 23:03 INR 1.0 11/08/17 23:03 APTT 29 SECONDS (21-34) 11/08/17 23:03 - Constitutional Appears: Well - Head Exam Head Exam: ATRAUMATIC, NORMAL INSPECTION, NORMOCEPHALIC - Eye Exam Eye Exam: EOMI, Normal appearance, PERRL Pupil Exam: NORMAL ACCOMODATION, PERRL - ENT Exam ENT Exam: Mucous Membranes Moist, Normal Exam - Neck Exam Neck Exam: Full ROM, Normal Inspection. absent: Lymphadenopathy - Respiratory Exam Respiratory Exam: Decreased Breath Sounds - Cardiovascular Exam Cardiovascular Exam: REGULAR RHYTHM, +S1, +S2 - GI/Abdominal Exam GI & Abdominal Exam: Soft, Diminished Bowel Sounds - Rectal Exam Rectal Exam: Deferred
[2017-11-12] MEDS: Azithromycin 500 MG in Sodium Chloride 0.9% 250 ML IVPB SCH (10:00)
[2017-11-12] MEDS: Ammonium Lactate 12% Lotion (225 g) TOP SCH ×2 (11:00→18:00)
[2017-11-12] MEDS: Enoxaparin 40 mg Syringe SC SCH (11:00)
[2017-11-12] MEDS: Pantoprazole 40 mg EC Tab PO SCH (11:00)
[2017-11-12] MEDS: Clotrimazole 1% Cream 15 GM TUBE TOP SCH (11:00)
[2017-11-12] MEDS: Divalproex 250 mg DR Tab PO SCH ×2 (11:00→17:52)
--- NOTE | 2017-11-12 14:02 | CP.PCM.PN ---
Subjective - Date & Time of Evaluation Date of Evaluation: 11/12/17 Time of Evaluation: 14:02 Objective - Vital Signs/Intake and Output Vital Signs (last 24 hours): Temp Pulse Resp BP Pulse Ox 98.4 F 71 20 152/82 H 96 11/12/17 07:48 11/12/17 07:48 11/12/17 07:48 11/12/17 07:48 11/12/17 07:48 Intake and Output: 11/12/17 11/12/17 06:59 18:59 Intake Total 480 Balance 480 - Medications Medications: Current Medications Albuterol Sulfate (Albuterol 0.083% Inhal Josey (2.5 Mg/3 Ml) Ud) 2.5 mg INH RQ4 [facility] Last Admin: 11/12/17 13:31 Dose: Not Given Clopidogrel Bisulfate (Plavix) 75 mg PO DAILY [facility] Last Admin: 11/12/17 11:00 Dose: 75 mg Clotrimazole (Lotrimin 1%) 1 gm TOP DAILY [facility] Last Admin: 11/12/17 11:00 Dose: 1 applic Divalproex Sodium (Depakote Dr) 250 mg PO BID [facility] Last Admin: 11/12/17 11:00 Dose: 250 mg Donepezil HCl (Aricept) 5 mg PO HS [facility] Last Admin: 11/11/17 21:39 Dose: 5 mg Enoxaparin Sodium (Lovenox) 40 mg SC DAILY [facility] Last Admin: 11/12/17 11:00 Dose: 40 mg Haloperidol (Haldol) 2 mg PO Q6H PRN PRN Reason: Agitation Last Admin: 11/11/17 22:48 Dose: 2 mg Azithromycin 500 mg/ Sodium (Chloride) 250 mls @ 250 mls/hr IVPB DAILY [facility] PRN Reason: Protocol Last Admin: 11/12/17 10:00 Dose: 250 mls/hr Ceftriaxone Sodium 1 gm/ (Sodium Chloride) 100 mls @ 100 mls/hr IVPB DAILY [facility] PRN Reason: Protocol Last Admin: 11/12/17 09:00 Dose: 100 mls/hr Lactic Acid (Lac-Hydrin 12% Lotion (225 G)) 1 gm TOP BID [facility] Last Admin: 11/12/17 11:00 Dose: 1 applic Methylprednisolone (Solu-Medrol) 40 mg IVP Q8H [facility] Last Admin: 11/12/17 13:54 Dose: 40 mg Montelukast Sodium (Singulair) 10 mg PO HS [facility] Last Admin: 11/11/17 21:42 Dose: 10 mg Pantoprazole Sodium (Protonix Ec Tab) 40 mg PO DAILY [facility] Last Admin: 11/12/17 11:00 Dose: 40 mg Propranolol HCl (Inderal) 10 mg PO TID [facility] Last Admin: 11/12/17 13:55 Dose: 10 mg Quetiapine Fumarate (Seroquel) 25 mg PO BID [facility] Last Admin: 11/12/17 11:00 Dose: 25 mg Fluticasone/Salmeterol (Advair Diskus 250/50) 1 puff INH RQ12 [facility] - Labs Labs: 11/12/17 06:53 11/12/17 06:53 PT 10.6 SECONDS (9.7-12.2) 11/08/17 23:03 INR 1.0 11/08/17 23:03 APTT 29 SECONDS (21-34) 11/08/17 23:03
--- NOTE | 2017-11-12 15:20 | CP.PCM.PN ---
Subjective - Date & Time of Evaluation Date of Evaluation: 11/12/17 Time of Evaluation: 15:20 - Subjective Subjective: Awake, alert, no acute distress. Objective - Vital Signs/Intake and Output Vital Signs (last 24 hours): Temp Pulse Resp BP Pulse Ox 98.4 F 71 20 152/82 H 96 11/12/17 07:48 11/12/17 07:48 11/12/17 07:48 11/12/17 07:48 11/12/17 07:48 Intake and Output: 11/12/17 11/12/17 06:59 18:59 Intake Total 480 Balance 480 - Medications Medications: Current Medications Albuterol Sulfate (Albuterol 0.083% Inhal Josey (2.5 Mg/3 Ml) Ud) 2.5 mg INH RQ4 [facility] Last Admin: 11/12/17 13:31 Dose: Not Given Clopidogrel Bisulfate (Plavix) 75 mg PO DAILY [facility] Last Admin: 11/12/17 11:00 Dose: 75 mg Clotrimazole (Lotrimin 1%) 1 gm TOP DAILY [facility] Last Admin: 11/12/17 11:00 Dose: 1 applic Divalproex Sodium (Depakote Dr) 250 mg PO BID [facility] Last Admin: 11/12/17 11:00 Dose: 250 mg Donepezil HCl (Aricept) 5 mg PO HS [facility] Last Admin: 11/11/17 21:39 Dose: 5 mg Enoxaparin Sodium (Lovenox) 40 mg SC DAILY [facility] Last Admin: 11/12/17 11:00 Dose: 40 mg Azithromycin 500 mg/ Sodium (Chloride) 250 mls @ 250 mls/hr IVPB DAILY [facility] PRN Reason: Protocol Last Admin: 11/12/17 10:00 Dose: 250 mls/hr Ceftriaxone Sodium 1 gm/ (Sodium Chloride) 100 mls @ 100 mls/hr IVPB DAILY [facility] PRN Reason: Protocol Last Admin: 11/12/17 09:00 Dose: 100 mls/hr Lactic Acid (Lac-Hydrin 12% Lotion (225 G)) 1 gm TOP BID [facility] Last Admin: 11/12/17 11:00 Dose: 1 applic Methylprednisolone (Solu-Medrol) 40 mg IVP Q8H [facility] Last Admin: 11/12/17 13:54 Dose: 40 mg Montelukast Sodium (Singulair) 10 mg PO HS [facility] Last Admin: 11/11/17 21:42 Dose: 10 mg Pantoprazole Sodium (Protonix Ec Tab) 40 mg PO DAILY [facility] Last Admin: 11/12/17 11:00 Dose: 40 mg Propranolol HCl (Inderal) 10 mg PO TID [facility] Last Admin: 11/12/17 13:55 Dose: 10 mg Quetiapine Fumarate (Seroquel) 25 mg PO BID [facility] Last Admin: 11/12/17 11:00 Dose: 25 mg Fluticasone/Salmeterol (Advair Diskus 250/50) 1 puff INH RQ12 [facility] - Labs Labs: 11/12/17 06:53 11/12/17 06:53 PT 10.6 SECONDS (9.7-12.2) 11/08/17 23:03 INR 1.0 11/08/17 23:03 APTT 29 SECONDS (21-34) 11/08/17 23:03 Assessment and Plan - Assessment and Plan (Free Text) Assessment: Patient admitted with altered mental status , seen and examined . Alert, awake, follows commands. No agitation or distress noted. Breathing improving, no acute wheezing or distress. Discussed with DR Adams, plan to discontinue haldol today. Plan to discharge back to residential tomorrow as per DR Martha Acevedo.
[2017-11-12] MEDS ORDERED: MethylPREDNISolone 40 mg Vial IVP SCH (18:00)
--- NOTE | 2017-11-12 22:46 | CP.PCM.PCO ---
Physician Communication Note - Physician Communication Note Physician Communication Note: Pt was cleared psychiatrically. Needs to continue meds
[2017-11-13] MEDS: Albuterol 0.083% Inhal Sol (2.5 mg/3 mL) UD INH SCH ×7 (00:47→20:25)
[2017-11-13] MEDS: MethylPREDNISolone 40 mg Vial IVP SCH ×3 (05:29→21:19)
[2017-11-13] MEDS: Divalproex 250 mg DR Tab PO SCH ×2 (09:14→17:46)
[2017-11-13] MEDS: Pantoprazole 40 mg EC Tab PO SCH (09:14)
[2017-11-13] MEDS: Enoxaparin 40 mg Syringe SC SCH (09:16)
[2017-11-13] MEDS: Clotrimazole 1% Cream 15 GM TUBE TOP SCH (10:26)
[2017-11-13] MEDS: Ammonium Lactate 12% Lotion (225 g) TOP SCH (10:27)
[2017-11-13] MEDS: Azithromycin 500 MG in Sodium Chloride 0.9% 250 ML IVPB SCH (10:27)
--- NOTE | 2017-11-13 18:05 | CP.PCM.PN ---
Objective - Vital Signs/Intake and Output Vital Signs (last 24 hours): Temp Pulse Resp BP Pulse Ox 98.7 F 67 20 149/84 97 11/13/17 00:15 11/13/17 00:15 11/13/17 00:15 11/13/17 00:15 11/13/17 00:15 Intake and Output: 11/13/17 11/13/17 06:59 18:59 Intake Total 480 Balance 480 - Medications Medications: Current Medications Albuterol Sulfate (Albuterol 0.083% Inhal Josey (2.5 Mg/3 Ml) Ud) 2.5 mg INH RQ4 [facility] Last Admin: 11/13/17 16:56 Dose: 2.5 mg Clopidogrel Bisulfate (Plavix) 75 mg PO DAILY [facility] Last Admin: 11/13/17 09:15 Dose: 75 mg Clotrimazole (Lotrimin 1%) 1 gm TOP DAILY [facility] Last Admin: 11/13/17 10:26 Dose: 1 applic Divalproex Sodium (Depakote Dr) 250 mg PO BID [facility] Last Admin: 11/13/17 17:46 Dose: 250 mg Donepezil HCl (Aricept) 5 mg PO HS [facility] Last Admin: 11/12/17 21:22 Dose: 5 mg Enoxaparin Sodium (Lovenox) 40 mg SC DAILY [facility] Last Admin: 11/13/17 09:16 Dose: 40 mg Azithromycin 500 mg/ Sodium (Chloride) 250 mls @ 250 mls/hr IVPB DAILY [facility] PRN Reason: Protocol Last Admin: 11/13/17 10:27 Dose: 250 mls/hr Ceftriaxone Sodium 1 gm/ (Sodium Chloride) 100 mls @ 100 mls/hr IVPB DAILY [facility] PRN Reason: Protocol Last Admin: 11/13/17 10:26 Dose: 100 mls/hr Lactic Acid (Lac-Hydrin 12% Lotion (225 G)) 1 gm TOP BID [facility] Last Admin: 11/13/17 10:27 Dose: 1 applic Methylprednisolone (Solu-Medrol) 40 mg IVP Q8H [facility] Last Admin: 11/13/17 14:37 Dose: 40 mg Montelukast Sodium (Singulair) 10 mg PO HS [facility] Last Admin: 11/12/17 21:20 Dose: 10 mg Pantoprazole Sodium (Protonix Ec Tab) 40 mg PO DAILY [facility] Last Admin: 11/13/17 09:14 Dose: 40 mg Propranolol HCl (Inderal) 10 mg PO TID [facility] Last Admin: 11/13/17 17:46 Dose: 10 mg Quetiapine Fumarate (Seroquel) 25 mg PO BID [facility] Last Admin: 11/13/17 17:46 Dose: 25 mg Fluticasone/Salmeterol (Advair Diskus 250/50) 1 puff INH RQ12 [facility] - Labs Labs: 11/12/17 06:53 11/12/17 06:53 PT 10.6 SECONDS (9.7-12.2) 11/08/17 23:03 INR 1.0 11/08/17 23:03 APTT 29 SECONDS (21-34) 11/08/17 23:03
--- NOTE | 2017-11-13 23:12 | CP.PCM.PN ---
Subjective - Date & Time of Evaluation Date of Evaluation: 11/13/17 Time of Evaluation: 07:30 - Subjective Subjective: clinically same Objective - Vital Signs/Intake and Output Vital Signs (last 24 hours): Temp Pulse Resp BP Pulse Ox 98.5 F 69 20 153/77 H 97 11/13/17 16:00 11/13/17 16:00 11/13/17 16:00 11/13/17 16:00 11/13/17 16:00 Intake and Output: 11/13/17 11/14/17 18:59 06:59 Intake Total 300 Output Total 300 Balance 0 - Medications Medications: Current Medications Albuterol Sulfate (Albuterol 0.083% Inhal Josey (2.5 Mg/3 Ml) Ud) 2.5 mg INH RQ4 [facility] Last Admin: 11/13/17 20:25 Dose: 2.5 mg Clopidogrel Bisulfate (Plavix) 75 mg PO DAILY [facility] Last Admin: 11/13/17 09:15 Dose: 75 mg Clotrimazole (Lotrimin 1%) 1 gm TOP DAILY [facility] Last Admin: 11/13/17 10:26 Dose: 1 applic Divalproex Sodium (Depakote Dr) 250 mg PO BID [facility] Last Admin: 11/13/17 17:46 Dose: 250 mg Donepezil HCl (Aricept) 5 mg PO HS [facility] Last Admin: 11/13/17 21:20 Dose: 5 mg Enoxaparin Sodium (Lovenox) 40 mg SC DAILY [facility] Last Admin: 11/13/17 09:16 Dose: 40 mg Azithromycin 500 mg/ Sodium (Chloride) 250 mls @ 250 mls/hr IVPB DAILY [facility] PRN Reason: Protocol Last Admin: 11/13/17 10:27 Dose: 250 mls/hr Ceftriaxone Sodium 1 gm/ (Sodium Chloride) 100 mls @ 100 mls/hr IVPB DAILY [facility] PRN Reason: Protocol Last Admin: 11/13/17 10:26 Dose: 100 mls/hr Lactic Acid (Lac-Hydrin 12% Lotion (225 G)) 1 gm TOP BID [facility] Last Admin: 11/13/17 10:27 Dose: 1 applic Methylprednisolone (Solu-Medrol) 40 mg IVP Q8H [facility] Last Admin: 11/13/17 21:19 Dose: 40 mg Montelukast Sodium (Singulair) 10 mg PO HS [facility] Last Admin: 11/13/17 21:19 Dose: 10 mg Pantoprazole Sodium (Protonix Ec Tab) 40 mg PO DAILY [facility] Last Admin: 11/13/17 09:14 Dose: 40 mg Propranolol HCl (Inderal) 10 mg PO TID [facility] Last Admin: 11/13/17 17:46 Dose: 10 mg Quetiapine Fumarate (Seroquel) 25 mg PO BID [facility] Last Admin: 11/13/17 17:46 Dose: 25 mg Fluticasone/Salmeterol (Advair Diskus 250/50) 1 puff INH RQ12 [facility] - Labs Labs: 11/12/17 06:53 11/12/17 06:53 PT 10.6 SECONDS (9.7-12.2) 11/08/17 23:03 INR 1.0 11/08/17 23:03 APTT 29 SECONDS (21-34) 11/08/17 23:03 - Constitutional Appears: Well - Head Exam Head Exam: ATRAUMATIC, NORMAL INSPECTION, NORMOCEPHALIC - Eye Exam Eye Exam: EOMI, Normal appearance, PERRL Pupil Exam: NORMAL ACCOMODATION, PERRL - ENT Exam ENT Exam: Mucous Membranes Moist, Normal Exam - Neck Exam Neck Exam: Full ROM, Normal Inspection. absent: Lymphadenopathy - Respiratory Exam Respiratory Exam: Decreased Breath Sounds - Cardiovascular Exam Cardiovascular Exam: REGULAR RHYTHM, +S1, +S2 - GI/Abdominal Exam GI & Abdominal Exam: Soft, Diminished Bowel Sounds - Rectal Exam Rectal Exam: Deferred
[2017-11-14] MEDS: MethylPREDNISolone 40 mg Vial IVP SCH ×3 (05:40→21:35)
[2017-11-14] MEDS: Albuterol-Ipratrop 3 mg / 0.5 (3 ml) UD INH SCH ×5 (08:08→19:33)
[2017-11-14] MEDS: Azithromycin 500 MG in Sodium Chloride 0.9% 250 ML IVPB SCH (10:02)
[2017-11-14] MEDS: Divalproex 250 mg DR Tab PO SCH ×2 (10:03→17:28)
[2017-11-14] MEDS: Pantoprazole 40 mg EC Tab PO SCH (10:04)
[2017-11-14] MEDS: Ammonium Lactate 12% Lotion (225 g) TOP SCH (10:04)
[2017-11-14] MEDS: Enoxaparin 40 mg Syringe SC SCH (10:04)
[2017-11-14] MEDS: Clotrimazole 1% Cream 15 GM TUBE TOP SCH (10:05)
--- NOTE | 2017-11-14 10:56 | CP.PCM.PN ---
Subjective - Date & Time of Evaluation Date of Evaluation: 11/14/17 Time of Evaluation: 06:30 - Subjective Subjective: clinically same Objective - Vital Signs/Intake and Output Vital Signs (last 24 hours): Temp Pulse Resp BP Pulse Ox 97.9 F 70 20 167/93 H 96 11/14/17 08:19 11/14/17 08:19 11/14/17 08:19 11/14/17 08:19 11/14/17 08:19 Intake and Output: 11/14/17 11/14/17 06:59 18:59 Intake Total 300 120 Output Total 300 Balance 0 120 - Medications Medications: Current Medications Albuterol/Ipratropium (Duoneb 3 Mg/0.5 Mg (3 Ml) Ud) 2.5 ml INH RQ4 [facility] Last Admin: 11/14/17 08:08 Dose: Not Given Clopidogrel Bisulfate (Plavix) 75 mg PO DAILY [facility] Last Admin: 11/14/17 10:04 Dose: 75 mg Clotrimazole (Lotrimin 1%) 1 gm TOP DAILY [facility] Last Admin: 11/14/17 10:05 Dose: 1 applic Divalproex Sodium (Depakote Dr) 250 mg PO BID [facility] Last Admin: 11/14/17 10:03 Dose: 250 mg Donepezil HCl (Aricept) 5 mg PO HS [facility] Last Admin: 11/13/17 21:20 Dose: 5 mg Enoxaparin Sodium (Lovenox) 40 mg SC DAILY [facility] Last Admin: 11/14/17 10:04 Dose: 40 mg Azithromycin 500 mg/ Sodium (Chloride) 250 mls @ 250 mls/hr IVPB DAILY [facility] PRN Reason: Protocol Last Admin: 11/14/17 10:02 Dose: 250 mls/hr Ceftriaxone Sodium 1 gm/ (Sodium Chloride) 100 mls @ 100 mls/hr IVPB DAILY [facility] PRN Reason: Protocol Last Admin: 11/13/17 10:26 Dose: 100 mls/hr Lactic Acid (Lac-Hydrin 12% Lotion (225 G)) 1 gm TOP BID [facility] Last Admin: 11/14/17 10:04 Dose: 1 applic Methylprednisolone (Solu-Medrol) 40 mg IVP Q8H [facility] Last Admin: 11/14/17 05:40 Dose: 40 mg Montelukast Sodium (Singulair) 10 mg PO HS [facility] Last Admin: 11/13/17 21:19 Dose: 10 mg Pantoprazole Sodium (Protonix Ec Tab) 40 mg PO DAILY [facility] Last Admin: 11/14/17 10:04 Dose: 40 mg Propranolol HCl (Inderal) 10 mg PO TID [facility] Last Admin: 11/14/17 10:03 Dose: 10 mg Quetiapine Fumarate (Seroquel) 25 mg PO BID [facility] Last Admin: 11/14/17 10:03 Dose: 25 mg Fluticasone/Salmeterol (Advair Diskus 250/50) 1 puff INH RQ12 [facility] - Labs Labs: 11/12/17 06:53 11/12/17 06:53 PT 10.6 SECONDS (9.7-12.2) 11/08/17 23:03 INR 1.0 11/08/17 23:03 APTT 29 SECONDS (21-34) 11/08/17 23:03 - Constitutional Appears: Well - Head Exam Head Exam: ATRAUMATIC, NORMAL INSPECTION, NORMOCEPHALIC - Eye Exam Eye Exam: EOMI, Normal appearance, PERRL Pupil Exam: NORMAL ACCOMODATION, PERRL - ENT Exam ENT Exam: Mucous Membranes Moist, Normal Exam - Neck Exam Neck Exam: Full ROM, Normal Inspection. absent: Lymphadenopathy - Respiratory Exam Respiratory Exam: Decreased Breath Sounds - Cardiovascular Exam Cardiovascular Exam: REGULAR RHYTHM, +S1, +S2 - GI/Abdominal Exam GI & Abdominal Exam: Soft, Diminished Bowel Sounds - Rectal Exam Rectal Exam: Deferred
[2017-11-15] MEDS: Albuterol-Ipratrop 3 mg / 0.5 (3 ml) UD INH SCH ×5 (00:22→19:32)
[2017-11-15] MEDS: MethylPREDNISolone 40 mg Vial IVP SCH ×2 (05:29→18:21)
[2017-11-15] MEDS: Ammonium Lactate 12% Lotion (225 g) TOP SCH ×2 (10:10→18:00)
--- NOTE | 2017-11-15 10:24 | CP.PCM.PN ---
Subjective - Date & Time of Evaluation Date of Evaluation: 11/15/17 Time of Evaluation: 10:11 - Subjective Subjective: PGY3 progress note for Dr. Martha Acevedo Pt see and examined at bedside. No acute events overnight. Per nurse, pt was agitated earlier this morning. Currently pt very pleasant. Denies having any CP, SOB, abd pain, N/V/D/c, F/C. C/O slight nonproductive coughing. Objective - Vital Signs/Intake and Output Vital Signs (last 24 hours): Temp Pulse Resp BP Pulse Ox 98.1 F 60 20 161/88 H 100 11/15/17 07:29 11/15/17 07:29 11/15/17 07:29 11/15/17 07:29 11/15/17 07:29 Intake and Output: 11/15/17 11/15/17 06:59 18:59 Intake Total 300 200 Output Total 500 Balance -200 200 - Medications Medications: Current Medications Albuterol/Ipratropium (Duoneb 3 Mg/0.5 Mg (3 Ml) Ud) 2.5 ml INH RQ4 [facility] Last Admin: 11/15/17 09:01 Dose: 2.5 ml Clopidogrel Bisulfate (Plavix) 75 mg PO DAILY [facility] Last Admin: 11/14/17 10:04 Dose: 75 mg Clotrimazole (Lotrimin 1%) 1 gm TOP DAILY [facility] Last Admin: 11/14/17 10:05 Dose: 1 applic Divalproex Sodium (Depakote Dr) 250 mg PO BID [facility] [place] Last Admin: 11/14/17 17:28 Dose: 250 mg Donepezil HCl (Aricept) 5 mg PO HS [facility] Last Admin: 11/14/17 21:35 Dose: 5 mg Enoxaparin Sodium (Lovenox) 40 mg SC DAILY [facility] Last Admin: 11/14/17 10:04 Dose: 40 mg Azithromycin 500 mg/ Sodium (Chloride) 250 mls @ 250 mls/hr IVPB DAILY [facility] PRN Reason: Protocol Last Admin: 11/14/17 10:02 Dose: 250 mls/hr Ceftriaxone Sodium 1 gm/ (Sodium Chloride) 100 mls @ 100 mls/hr IVPB DAILY [facility] PRN Reason: Protocol Last Admin: 11/14/17 11:45 Dose: 100 mls/hr Lactic Acid (Lac-Hydrin 12% Lotion (225 G)) 1 gm TOP BID [facility] [place] Last Admin: 11/14/17 10:04 Dose: 1 applic Methylprednisolone (Solu-Medrol) 40 mg IVP Q8H [facility] [place] Last Admin: 11/15/17 05:29 Dose: 40 mg Montelukast Sodium (Singulair) 10 mg PO HS [facility] [place] Last Admin: 11/14/17 21:35 Dose: 10 mg Pantoprazole Sodium (Protonix Ec Tab) 40 mg PO DAILY [facility] [place] Last Admin: 11/14/17 10:04 Dose: 40 mg Propranolol HCl (Inderal) 10 mg PO TID [facility] Last Admin: 11/14/17 17:28 Dose: 10 mg Quetiapine Fumarate (Seroquel) 25 mg PO BID [facility] Last Admin: 11/14/17 17:28 Dose: 25 mg Fluticasone/Salmeterol (Advair Diskus 250/50) 1 puff INH RQ12 [facility] - Labs Labs: 11/12/17 06:53 11/12/17 06:53 PT 10.6 SECONDS (9.7-12.2) 11/08/17 23:03 INR 1.0 11/08/17 23:03 APTT 29 SECONDS (21-34) 11/08/17 23:03 - Constitutional Appears: Non-toxic, No Acute Distress - Head Exam Head Exam: ATRAUMATIC, NORMOCEPHALIC - ENT Exam ENT Exam: Mucous Membranes Moist - Respiratory Exam Respiratory Exam: Rhonchi (diffusely ), Wheezes. absent: Accessory Muscle Use, Respiratory Distress - Cardiovascular Exam Cardiovascular Exam: REGULAR RHYTHM, +S1, +S2. absent: Gallop, Rubs, Murmur - GI/Abdominal Exam GI & Abdominal Exam: Soft, Normal Bowel Sounds. absent: Distended, Firm, Guarding, Rigid, Tenderness - Extremities Exam Extremities Exam: absent: Pedal Edema, Tenderness - Neurological Exam Neurological Exam: Alert, Awake. absent: Oriented x3 (A&Ox1) - Psychiatric Exam Psychiatric exam: Normal Affect, Normal Mood - Skin Skin Exam: Dry, Intact, Normal Color, Warm Assessment and Plan - Assessment and Plan (Free Text) Assessment: 72 year old male with past medical history of COPD, HTN, CAD and dementia is admitted for COPD exacerbation COPD exacerbation - On admission, pt was agitated and SOB with B/L wheezing - Afebrile and normal WBC count on admission - CXR showed no acute cardiopulmonal pathology - Initial trops and EKG were normal - Pulmonology, Dr. Lock consulted - zithromax and rocephin started on 11/09/17 - Solumedrol 40 IV q8 - Duoneb katy - singulair - Advair - Will check Echo - Will check procal - Will check serial trops and ekg Dementia - Pt was brought from [place] with complaint of agitation - CT of head on admission showed cerebral and cebebellar atrophy. Small vessel ischemic/degenerative changes. - Psych, Dr. Adams was consulted. Recommended continuing current medications and pt cleared by [facility] - Continue Aricept and Depakote 250 mg po BID, Inderal and resperidone CAD - will check echo and serial trops and EKG - HgbA1c and lipid panel in 04/2017 was normal Prophylaxis - Protonix - Lovenox - SCDs - PT/OT All orders and management per Dr. Martha Acevedo
[2017-11-15] MEDS: Divalproex 250 mg DR Tab PO SCH ×2 (10:47→18:21)
[2017-11-15] MEDS: Clotrimazole 1% Cream 15 GM TUBE TOP SCH (10:49)
[2017-11-15] MEDS: Pantoprazole 40 mg EC Tab PO SCH (10:49)
[2017-11-15] MEDS: Enoxaparin 40 mg Syringe SC SCH (10:49)
[2017-11-15] MEDS: Azithromycin 500 MG in Sodium Chloride 0.9% 250 ML IVPB SCH (10:51)
[2017-11-15 12:28] LABS: HEMOGLOBIN 13.6 g/dL (12.0-18.0); LYMPH # 0.8 K/uL (1.0-4.3); LYMPH % 6.8 % (20.0-40.0); MEAN CELL VOLUME 78.5 fL (80.0-94.0); MEAN CORPUSCULAR HEMOGLOBIN 26.2 pg (27.0-31.0); MEAN CORPUSCULAR HGB CONC 33.4 g/dL (33.0-37.0); MEAN PLATELET VOLUME 7.7 fL (7.2-11.7); MONO # 0.7 K/uL (0.0-0.8); NEUT # 10.7 K/uL (1.8-7.0); NEUT % 87.2 % (50.0-75.0); PLATELET COUNT 331 K/uL (130-400); RED CELL DISTRIBUTION WIDTH 16.6 % (11.5-14.5); WHITE BLOOD COUNT 12.2 K/uL (4.8-10.8)
[2017-11-15 12:53] LABS: LYMPHOCYTE 6 % (20-40); MONOCYTE 5 % (0-10); NEUTROPHIL 89 % (50-75); TOTAL CELLS COUNTED 100
[2017-11-15 12:54] LABS: ANISOCYTOSIS SLIGHT; HYPOCHROMIC SLIGHT; OVALOCYTES SLIGHT; PLATELET ESTIMATE NORMAL (NORMAL); POIKILOCYTOSIS SLIGHT; POLYCHROMIC SLIGHT
[2017-11-15 12:55] LABS: BURR CELLS SLIGHT
[2017-11-15 13:14] LABS: ALB/GLOB RATIO 1.2 (1.0-2.1); ALBUMIN 3.2 g/dL (3.5-5.0); ALT/SGPT 29 U/L (21-72); AST/SGOT 22 U/L (17-59); BLOOD UREA NITROGEN 17 mg/dL (9-20); CALCIUM 8.1 mg/dl (8.6-10.4); GFR NON-AFRICAN AMERICAN > 60
[2017-11-15 14:25] LABS: B-TYPE NATRIURETIC PEPTIDE 85.6 pg/mL (0-900)
--- NOTE | 2017-11-15 14:26 | PCM.PYCHPN ---
Psychiatric Progress Note - Psychiatric Progress Note Patient seen today, length of contact: 17 min Patient Chief Complaint: "I am bored" Problems Identified/Issues Discussed: The pt is seen, chart reviewed and case discussed with CM and PA He is periodically agitated Seroquel is now switched to risperdal His NH is reluctant to get him back but he is likely his baseline: dementia with some bhv issues and meds will help him calm down slowly Support and psychoed given When we met he was very calm and cooperative and even better oriented than first time. Medication Change: Yes Medical Record Reviewed: Yes Mental Status Examination - Cognitive Function Orientation: Person Memory: Impaired Attention: Poor Concentration: Poor Association: WNL Fund of Knowledge: Poor - Mood Mood: Anxious - Affect Affect: Broad, Constricted - Speech Speech: Appropriate - Formal Thought Process Formal Thought Process: No Impairment - Suicidal Ideation Suicidal Ideation: No - Homicidal Ideation Homicidal Ideation: No Goal/Treatment Plan - Goal/Treatment Plan Need for Continued Stay: Other (medical) Progress Toward Problem(s) and Goals/Treatment Plan: Add risperdal low dose DC seroquel Continnue depakote, inderal Support and psychoed Cleared for d/c by psych
--- NOTE | 2017-11-15 17:15 | CP.PCM.PN ---
Subjective - Date & Time of Evaluation Date of Evaluation: 11/15/17 Time of Evaluation: 17:14 Objective - Vital Signs/Intake and Output Vital Signs (last 24 hours): Temp Pulse Resp BP Pulse Ox 97.5 F L 60 18 125/73 99 11/15/17 16:00 11/15/17 16:00 11/15/17 16:00 11/15/17 16:00 11/15/17 16:00 Intake and Output: 11/15/17 11/15/17 06:59 18:59 Intake Total 300 500 Output Total 500 Balance -200 500 - Medications Medications: Current Medications Albuterol/Ipratropium (Duoneb 3 Mg/0.5 Mg (3 Ml) Ud) 2.5 ml INH RQ4 [facility] Last Admin: 11/15/17 13:00 Dose: Not Given Azithromycin (Zithromax) 500 mg PO DAILY [facility] PRN Reason: Protocol Last Admin: 11/15/17 11:30 Dose: 500 mg Clopidogrel Bisulfate (Plavix) 75 mg PO DAILY [facility] Last Admin: 11/15/17 10:49 Dose: 75 mg Clotrimazole (Lotrimin 1%) 1 gm TOP DAILY [facility] Last Admin: 11/15/17 10:49 Dose: 1 applic Divalproex Sodium (Depakote Dr) 250 mg PO BID [facility] Last Admin: 11/15/17 10:47 Dose: 250 mg Donepezil HCl (Aricept) 5 mg PO HS [facility] Last Admin: 11/14/17 21:35 Dose: 5 mg Enoxaparin Sodium (Lovenox) 40 mg SC DAILY [facility] Last Admin: 11/15/17 10:49 Dose: 40 mg Lactic Acid (Lac-Hydrin 12% Lotion (225 G)) 1 gm TOP BID [facility] Last Admin: 11/15/17 10:10 Dose: 1 applic Methylprednisolone (Solu-Medrol) 40 mg IVP Q12H [facility] Montelukast Sodium (Singulair) 10 mg PO HS [facility] Last Admin: 11/14/17 21:35 Dose: 10 mg Pantoprazole Sodium (Protonix Ec Tab) 40 mg PO DAILY [facility] Last Admin: 11/15/17 10:49 Dose: 40 mg Propranolol HCl (Inderal) 10 mg PO TID [facility] Last Admin: 11/15/17 10:50 Dose: 10 mg Risperidone (Risperdal Tab) 0.5 mg PO BID [facility] Fluticasone/Salmeterol (Advair Diskus 250/50) 1 puff INH RQ12 [facility] - Labs Labs: 11/15/17 12:21 11/15/17 12:21 PT 10.6 SECONDS (9.7-12.2) 11/08/17 23:03 INR 1.0 11/08/17 23:03 APTT 29 SECONDS (21-34) 11/08/17 23:03
--- NOTE | 2017-11-15 17:59 | CP.PCM.PN ---
Subjective - Date & Time of Evaluation Date of Evaluation: 11/15/17 Time of Evaluation: 07:45 - Subjective Subjective: clinically same Objective - Vital Signs/Intake and Output Vital Signs (last 24 hours): Temp Pulse Resp BP Pulse Ox 97.5 F L 60 18 125/73 99 11/15/17 16:00 11/15/17 16:00 11/15/17 16:00 11/15/17 16:00 11/15/17 16:00 Intake and Output: 11/15/17 11/15/17 06:59 18:59 Intake Total 300 500 Output Total 500 Balance -200 500 - Medications Medications: Current Medications Albuterol/Ipratropium (Duoneb 3 Mg/0.5 Mg (3 Ml) Ud) 2.5 ml INH RQ4 [facility] Last Admin: 11/15/17 13:00 Dose: Not Given Azithromycin (Zithromax) 500 mg PO DAILY [facility] PRN Reason: Protocol Last Admin: 11/15/17 11:30 Dose: 500 mg Clopidogrel Bisulfate (Plavix) 75 mg PO DAILY [facility] Last Admin: 11/15/17 10:49 Dose: 75 mg Clotrimazole (Lotrimin 1%) 1 gm TOP DAILY [facility] Last Admin: 11/15/17 10:49 Dose: 1 applic Divalproex Sodium (Depakote Dr) 250 mg PO BID [facility] Last Admin: 11/15/17 10:47 Dose: 250 mg Donepezil HCl (Aricept) 5 mg PO HS [facility] Last Admin: 11/14/17 21:35 Dose: 5 mg Enoxaparin Sodium (Lovenox) 40 mg SC DAILY [facility] Last Admin: 11/15/17 10:49 Dose: 40 mg Lactic Acid (Lac-Hydrin 12% Lotion (225 G)) 1 gm TOP BID [facility] Last Admin: 11/15/17 10:10 Dose: 1 applic Methylprednisolone (Solu-Medrol) 40 mg IVP Q12H [facility] Montelukast Sodium (Singulair) 10 mg PO HS [facility] Last Admin: 11/14/17 21:35 Dose: 10 mg Pantoprazole Sodium (Protonix Ec Tab) 40 mg PO DAILY [facility] Last Admin: 11/15/17 10:49 Dose: 40 mg Propranolol HCl (Inderal) 10 mg PO TID [facility] Last Admin: 09/10/18 10:50 Dose: 10 mg Risperidone (Risperdal Tab) 0.5 mg PO BID [facility] Fluticasone/Salmeterol (Advair Diskus 250/50) 1 puff INH RQ12 [facility] - Labs Labs: 11/15/17 12:21 11/15/17 12:21 PT 10.6 SECONDS (9.7-12.2) 11/08/17 23:03 INR 1.0 11/08/17 23:03 APTT 29 SECONDS (21-34) 11/08/17 23:03 - Constitutional Appears: Well - Head Exam Head Exam: ATRAUMATIC, NORMAL INSPECTION, NORMOCEPHALIC - Eye Exam Eye Exam: EOMI, Normal appearance, PERRL Pupil Exam: NORMAL ACCOMODATION, PERRL - ENT Exam ENT Exam: Mucous Membranes Moist, Normal Exam - Neck Exam Neck Exam: Full ROM, Normal Inspection. absent: Lymphadenopathy - Respiratory Exam Respiratory Exam: Decreased Breath Sounds - Cardiovascular Exam Cardiovascular Exam: REGULAR RHYTHM, +S1, +S2 - GI/Abdominal Exam GI & Abdominal Exam: Soft, Diminished Bowel Sounds - Rectal Exam Rectal Exam: Deferred
[2017-11-15 23:58] VITALS: RESP 20
[2017-11-16] MEDS: Albuterol-Ipratrop 3 mg / 0.5 (3 ml) UD INH SCH ×7 (00:39→23:53)
[2017-11-16] MEDS: MethylPREDNISolone 40 mg Vial IVP SCH ×2 (06:10→17:05)
[2017-11-16 07:48] LABS: ALB/GLOB RATIO 1.2 (1.0-2.1); ALBUMIN 3.3 g/dL (3.5-5.0); ALT/SGPT 30 U/L (21-72); AST/SGOT 20 U/L (17-59); BASO % 0.1 % (0.0-2.0); BLOOD UREA NITROGEN 17 mg/dL (9-20); CALCIUM 8.4 mg/dl (8.6-10.4); GFR NON-AFRICAN AMERICAN > 60; HEMOGLOBIN 14.7 g/dL (12.0-18.0); LYMPH # 2.3 K/uL (1.0-4.3); LYMPH % 16.5 % (20.0-40.0); MEAN CELL VOLUME 79.1 fL (80.0-94.0); MEAN CORPUSCULAR HEMOGLOBIN 26.4 pg (27.0-31.0); MEAN CORPUSCULAR HGB CONC 33.4 g/dL (33.0-37.0); MEAN PLATELET VOLUME 7.8 fL (7.2-11.7); MONO # 1.1 K/uL (0.0-0.8); MONO % 7.7 % (0.0-10.0); NEUT # 10.6 K/uL (1.8-7.0); NEUT % 75.7 % (50.0-75.0); NRBC % 0.1 % (0.0-2.0); RBC 5.57 Mil/uL (4.40-5.90); RED CELL DISTRIBUTION WIDTH 16.6 % (11.5-14.5)
[2017-11-16 08:02] LABS: INR 1.1; PROTHROMBIN TIME 11.5 SECONDS (9.7-12.2)
[2017-11-16] MEDS: Pantoprazole 40 mg EC Tab PO SCH (09:36)
[2017-11-16] MEDS: Enoxaparin 40 mg Syringe SC SCH (09:38)
[2017-11-16] MEDS: Divalproex 250 mg DR Tab PO SCH ×2 (09:38→17:53)
[2017-11-16] MEDS: Ammonium Lactate 12% Lotion (225 g) TOP SCH ×3 (09:43→19:08)
[2017-11-16] MEDS: Clotrimazole 1% Cream 15 GM TUBE TOP SCH (09:47)
--- NOTE | 2017-11-16 11:57 | CP.PCM.PN ---
Subjective - Date & Time of Evaluation Date of Evaluation: 11/16/17 Time of Evaluation: 07:45 - Subjective Subjective: clinically same Objective - Vital Signs/Intake and Output Vital Signs (last 24 hours): Temp Pulse Resp BP Pulse Ox 98.6 F 67 20 160/78 H 98 11/16/17 07:43 11/16/17 07:43 11/16/17 07:43 11/16/17 07:43 11/16/17 07:43 Intake and Output: 11/16/17 11/16/17 06:59 18:59 Intake Total 350 Balance 350 - Medications Medications: Current Medications Albuterol/Ipratropium (Duoneb 3 Mg/0.5 Mg (3 Ml) Ud) 2.5 ml INH RQ4 [facility] Last Admin: 11/16/17 08:30 Dose: 2.5 ml Azithromycin (Zithromax) 500 mg PO DAILY [facility] PRN Reason: Protocol Last Admin: 11/16/17 09:38 Dose: 500 mg Clopidogrel Bisulfate (Plavix) 75 mg PO DAILY [facility] Last Admin: 11/16/17 09:37 Dose: 75 mg Clotrimazole (Lotrimin 1%) 1 gm TOP DAILY [facility] Last Admin: 11/16/17 09:47 Dose: Not Given Divalproex Sodium (Depakote Dr) 250 mg PO BID [facility] Last Admin: 11/16/17 09:38 Dose: 250 mg Donepezil HCl (Aricept) 5 mg PO HS [facility] Last Admin: 11/15/17 21:20 Dose: 5 mg Enoxaparin Sodium (Lovenox) 40 mg SC DAILY [facility] Last Admin: 11/16/17 09:38 Dose: 40 mg Lactic Acid (Lac-Hydrin 12% Lotion (225 G)) 1 gm TOP BID [facility] Last Admin: 11/16/17 09:43 Dose: 1 applic Methylprednisolone (Solu-Medrol) 40 mg IVP Q12H [facility] Last Admin: 11/16/17 06:10 Dose: 40 mg Montelukast Sodium (Singulair) 10 mg PO HS [facility] Last Admin: 11/15/17 21:20 Dose: 10 mg Pantoprazole Sodium (Protonix Ec Tab) 40 mg PO DAILY [facility] Last Admin: 11/16/17 09:36 Dose: 40 mg Propranolol HCl (Inderal) 10 mg PO TID [facility] Last Admin: 11/16/17 09:37 Dose: 10 mg Risperidone (Risperdal Tab) 0.5 mg PO BID [facility] Last Admin: 11/16/17 09:37 Dose: 0.5 mg Fluticasone/Salmeterol (Advair Diskus 250/50) 1 puff INH RQ12 [facility] - Labs Labs: 11/16/17 07:17 11/16/17 07:17 PT 11.5 SECONDS (9.7-12.2) 11/16/17 07:17 INR 1.1 11/16/17 07:17 APTT 25 SECONDS (21-34) 11/16/17 07:17 - Constitutional Appears: Well - Head Exam Head Exam: ATRAUMATIC, NORMAL INSPECTION, NORMOCEPHALIC - Eye Exam Eye Exam: EOMI, Normal appearance, PERRL Pupil Exam: NORMAL ACCOMODATION, PERRL - ENT Exam ENT Exam: Mucous Membranes Moist, Normal Exam - Neck Exam Neck Exam: Full ROM, Normal Inspection. absent: Lymphadenopathy - Respiratory Exam Respiratory Exam: Decreased Breath Sounds - Cardiovascular Exam Cardiovascular Exam: REGULAR RHYTHM, +S1, +S2 - GI/Abdominal Exam GI & Abdominal Exam: Soft, Diminished Bowel Sounds - Rectal Exam Rectal Exam: Deferred
[2017-11-17] MEDS: Albuterol-Ipratrop 3 mg / 0.5 (3 ml) UD INH SCH ×3 (03:21→11:13)
[2017-11-17] MEDS: MethylPREDNISolone 40 mg Vial IVP SCH (05:35)
[2017-11-17] MEDS: Fluticasone-Salmeterol 250-50mcg Diskus INH SCH ×2 (07:27→19:24)
[2017-11-17] MEDS: Pantoprazole 40 mg EC Tab PO SCH (10:45)
[2017-11-17] MEDS: Divalproex 250 mg DR Tab PO SCH ×3 (10:45→18:11)
[2017-11-17] MEDS: Clotrimazole 1% Cream 15 GM TUBE TOP SCH (10:45)
[2017-11-17] MEDS: Enoxaparin 40 mg Syringe SC SCH (10:45)
[2017-11-17] MEDS: Ammonium Lactate 12% Lotion (225 g) TOP SCH ×2 (10:45→18:14)
--- NOTE | 2017-11-17 13:00 | CP.PCM.PN ---
Subjective - Date & Time of Evaluation Date of Evaluation: 11/17/17 Time of Evaluation: 08:15 - Subjective Subjective: clinically same Objective - Vital Signs/Intake and Output Vital Signs (last 24 hours): Temp Pulse Resp BP Pulse Ox 98.2 F 87 20 112/72 96 11/17/17 08:00 11/17/17 08:00 11/17/17 08:00 11/17/17 08:00 11/17/17 08:00 Intake and Output: 11/17/17 11/17/17 06:59 18:59 Intake Total 400 Balance 400 - Medications Medications: Current Medications Albuterol/Ipratropium (Duoneb 3 Mg/0.5 Mg (3 Ml) Ud) 3 ml INH Q6H [facility]N PRN Reason: Wheezing Azithromycin (Zithromax) 500 mg PO DAILY [facility] PRN Reason: Protocol Last Admin: 11/17/17 10:35 Dose: 500 mg Clopidogrel Bisulfate (Plavix) 75 mg PO DAILY [facility] Last Admin: 11/17/17 10:45 Dose: 75 mg Clotrimazole (Lotrimin 1%) 1 gm TOP DAILY [facility] Last Admin: 11/17/17 10:45 Dose: Not Given Divalproex Sodium (Depakote Dr) 250 mg PO TID [facility] Last Admin: 11/17/17 10:45 Dose: 250 mg Donepezil HCl (Aricept) 5 mg PO HS [facility] Last Admin: 11/16/17 22:03 Dose: 5 mg Enoxaparin Sodium (Lovenox) 40 mg SC DAILY [facility] Last Admin: 11/17/17 10:45 Dose: 40 mg Lactic Acid (Lac-Hydrin 12% Lotion (225 G)) 1 gm TOP BID [facility] Last Admin: 11/17/17 10:45 Dose: 1 applic Montelukast Sodium (Singulair) 10 mg PO HS [facility] Last Admin: 11/16/17 22:04 Dose: 10 mg Pantoprazole Sodium (Protonix Ec Tab) 40 mg PO DAILY [facility] Last Admin: 11/17/17 10:45 Dose: 40 mg Prednisone (Prednisone Tab) 20 mg PO BID [facility] Propranolol HCl (Inderal) 10 mg PO QID [facility] Last Admin: 11/17/17 10:45 Dose: 10 mg Risperidone (Risperdal Tab) 0.5 mg PO TID [facility] Fluticasone/Salmeterol (Advair Diskus 250/50) 1 puff INH RQ12 [facility] Last Admin: 11/17/17 07:27 Dose: 1 puff - Labs Labs: 11/16/17 07:17 11/16/17 07:17 PT 11.5 SECONDS (9.7-12.2) 11/16/17 07:17 INR 1.1 11/16/17 07:17 APTT 25 SECONDS (21-34) 11/16/17 07:17
--- NOTE | 2017-11-17 13:17 | PCM.PYCHPN ---
Psychiatric Progress Note - Psychiatric Progress Note Patient seen today, length of contact: 16 min Patient Chief Complaint: "I am OK" Problems Identified/Issues Discussed: The pt is seen, chart reviewed and case discussed with staff He is still periodically agitated and sometimes combative! Meds adjusted again Support and psychoed given When we met he was again very calm and cooperative BUT he was disoriented and very forgetful. He didn't know where he was. Medication Change: Yes (increase all meds) Medical Record Reviewed: Yes Mental Status Examination - Cognitive Function Orientation: Person Memory: Impaired Attention: Poor Concentration: Poor Association: WNL Fund of Knowledge: Poor - Mood Mood: Anxious - Affect Affect: Broad, Constricted - Speech Speech: Appropriate - Formal Thought Process Formal Thought Process: No Impairment - Suicidal Ideation Suicidal Ideation: No - Homicidal Ideation Homicidal Ideation: No Goal/Treatment Plan - Goal/Treatment Plan Need for Continued Stay: Other (medical) Progress Toward Problem(s) and Goals/Treatment Plan: Added risperdal low dose Continue depakote, inderal and increase doses Support and psychoed Cleared for d/c by psych
[2017-11-17] MEDS: Albuterol-Ipratrop 3 mg / 0.5 (3 ml) UD INH PRN ×2 (14:53→19:24)
--- NOTE | 2017-11-17 17:36 | CP.PCM.PN ---
Subjective - Date & Time of Evaluation Date of Evaluation: 11/17/17 Time of Evaluation: 17:36 Objective - Vital Signs/Intake and Output Vital Signs (last 24 hours): Temp Pulse Resp BP Pulse Ox 97.7 F 88 20 116/75 97 11/17/17 15:15 11/17/17 15:15 11/17/17 15:15 11/17/17 15:15 11/17/17 15:15 Intake and Output: 11/17/17 11/17/17 06:59 18:59 Intake Total 400 400 Balance 400 400 - Medications Medications: Current Medications Albuterol/Ipratropium (Duoneb 3 Mg/0.5 Mg (3 Ml) Ud) 3 ml INH Q6H PRN PRN Reason: Wheezing Last Admin: 11/17/17 14:53 Dose: 3 ml Azithromycin (Zithromax) 500 mg PO DAILY [facility] PRN Reason: Protocol Last Admin: 11/17/17 10:35 Dose: 500 mg Clopidogrel Bisulfate (Plavix) 75 mg PO DAILY [facility] Last Admin: 11/17/17 10:45 Dose: 75 mg Clotrimazole (Lotrimin 1%) 1 gm TOP DAILY [facility] Last Admin: 11/17/17 10:45 Dose: Not Given Divalproex Sodium (Depakote Dr) 250 mg PO TID [facility] Last Admin: 11/17/17 13:24 Dose: 250 mg Donepezil HCl (Aricept) 5 mg PO HS [facility] Last Admin: 11/16/17 22:03 Dose: 5 mg Enoxaparin Sodium (Lovenox) 40 mg SC DAILY [facility] Last Admin: 11/17/17 10:45 Dose: 40 mg Lactic Acid (Lac-Hydrin 12% Lotion (225 G)) 1 gm TOP BID [facility] Last Admin: 11/17/17 10:45 Dose: 1 applic Montelukast Sodium (Singulair) 10 mg PO HS [facility] Last Admin: 11/16/17 22:04 Dose: 10 mg Pantoprazole Sodium (Protonix Ec Tab) 40 mg PO DAILY [facility] Last Admin: 11/17/17 10:45 Dose: 40 mg Prednisone (Prednisone Tab) 20 mg PO BID [facility] Propranolol HCl (Inderal) 10 mg PO QID [facility] Last Admin: 11/17/17 13:25 Dose: 10 mg Risperidone (Risperdal Tab) 0.5 mg PO TID [facility] Last Admin: 11/17/17 13:25 Dose: 0.5 mg Fluticasone/Salmeterol (Advair Diskus 250/50) 1 puff INH RQ12 [facility] Last Admin: 11/17/17 07:27 Dose: 1 puff - Labs Labs: 11/16/17 07:17 11/16/17 07:17 PT 11.5 SECONDS (9.7-12.2) 11/16/17 07:17 INR 1.1 11/16/17 07:17 APTT 25 SECONDS (21-34) 11/16/17 07:17
[2017-11-17] MEDS ORDERED: Pneumococcal 23-Valent Vaccine IM ONE (18:12)
--- NOTE | 2017-11-17 23:19 | CARD ---
APPROVED REPORT Date of service: 11/17/2017 EXAM: Two-dimensional and M-mode echocardiogram with Doppler and color Doppler. Other Information Quality : GoodRhythm : INDICATION Dyspnea Cardiac Disease: CAD Congestive Heart Failure COPD RISK FACTORS Hypertension 2D DIMENSIONS IVSd1.1 (0.7-1.1cm)LVDd2.9 (3.9-5.9cm) PWd1.2 (0.7-1.1cm)LVDs1.9 (2.5-4.0cm) FS (%) 34.0 %LVEF (%)69.0 (>50%) M-Mode DIMENSIONS Left Atrium (MM)3.68 (2.5-4.0cm)IVSd1.09 (0.7-1.1cm) Aortic Root3.44 (2.2-3.7cm)LVDd4.22 (4.0-5.6cm) Aortic Cusp Exc.2.18 (1.5-2.0cm)PWd0.74 (0.7-1.1cm) FS (%) 44 %LVDs2.37 (2.0-3.8cm) LVEF (%)75 (>50%) Mitral Valve MV E [id number]/sMV A Kfsbanbv60.3cm/sE/A ratio0.5 TDI E/Lateral E'0.0E/Medial E'0.0 Tricuspid Valve TR Peak [id number]/sTR Peak [id number] LEFT VENTRICLE The left ventricle is normal size. There is borderline concentric left ventricular hypertrophy. Left ventricle systolic function is normal. The Ejection Fraction is 65-70%. There is normal LV segmental wall motion. Transmitral Doppler flow pattern is Grade I-abnormal relaxation pattern. There is no ventricular septal defect visualized. RIGHT VENTRICLE The right ventricle is normal size. The right ventricular systolic function is normal. ATRIA The left atrium is mildly dilated. The right atrium size is normal. AORTIC VALVE The aortic valve is mildly sclerotic. The aortic valve is tri-cuspid. No aortic regurgitation is present. There is no aortic valvular stenosis. MITRAL VALVE The mitral valve is normal in structure. There is no evidence of mitral valve prolapse. There is no mitral valve regurgitation noted. TRICUSPID VALVE The tricuspid valve is normal in structure. There is trace tricuspid regurgitation. Right ventricular systolic pressure is estimated at less than 30 mmHg. There is no pulmonary hypertension. PULMONIC VALVE The pulmonic valve is not well visualized. There is trace pulmonic valvular regurgitation. GREAT VESSELS The aortic root is normal in size. The ascending aorta is normal in size. The IVC is normal in size and collapses >50% with inspiration. PERICARDIAL EFFUSION There is no pericardial effusion. <Conclusion> The left ventricle is normal size. Left ventricle systolic function is normal. The Ejection Fraction is 65-70%. There is borderline concentric left ventricular hypertrophy. Transmitral Doppler flow pattern is Grade I-abnormal relaxation pattern.
[2017-11-18] MEDS: Fluticasone-Salmeterol 250-50mcg Diskus INH SCH (08:01)
[2017-11-18] MEDS: Albuterol-Ipratrop 3 mg / 0.5 (3 ml) UD INH PRN (08:01)
[2017-11-18 08:44] VITALS: BP 127/79; PULSE 76; TEMP 97.5; O2SAT 96
--- NOTE | 2017-11-18 10:26 | CP.PCM.PN ---
Subjective - Date & Time of Evaluation Date of Evaluation: 11/18/17 Time of Evaluation: 07:30 - Subjective Subjective: clinically same Objective - Vital Signs/Intake and Output Vital Signs (last 24 hours): Temp Pulse Resp BP Pulse Ox 97.5 F L 76 20 127/79 96 11/18/17 08:00 11/18/17 08:00 11/18/17 08:00 11/18/17 08:00 11/18/17 08:00 Intake and Output: 11/18/17 11/18/17 06:59 18:59 Intake Total 560 Balance 560 - Medications Medications: Current Medications Albuterol/Ipratropium (Duoneb 3 Mg/0.5 Mg (3 Ml) Ud) 3 ml INH Q6H PRN PRN Reason: Wheezing Last Admin: 11/18/17 08:01 Dose: 3 ml Azithromycin (Zithromax) 500 mg PO DAILY [facility] PRN Reason: Protocol Last Admin: 11/17/17 10:35 Dose: 500 mg Clopidogrel Bisulfate (Plavix) 75 mg PO DAILY [facility] Last Admin: 11/17/17 10:45 Dose: 75 mg Clotrimazole (Lotrimin 1%) 1 gm TOP DAILY [facility] Last Admin: 11/17/17 10:45 Dose: Not Given Divalproex Sodium (Depakote Dr) 250 mg PO TID [facility] Last Admin: 11/17/17 18:11 Dose: 250 mg Donepezil HCl (Aricept) 5 mg PO HS [facility] Last Admin: 11/17/17 23:00 Dose: 5 mg Enoxaparin Sodium (Lovenox) 40 mg SC DAILY [facility] Last Admin: 11/17/17 10:45 Dose: 40 mg Lactic Acid (Lac-Hydrin 12% Lotion (225 G)) 1 gm TOP BID [facility] Last Admin: 11/17/17 18:14 Dose: 1 applic Montelukast Sodium (Singulair) 10 mg PO HS [facility] Last Admin: 11/17/17 23:00 Dose: 10 mg Pantoprazole Sodium (Protonix Ec Tab) 40 mg PO DAILY [facility] Last Admin: 11/17/17 10:45 Dose: 40 mg Prednisone (Prednisone Tab) 20 mg PO BID [facility] Last Admin: 11/17/17 18:10 Dose: 20 mg Propranolol HCl (Inderal) 10 mg PO QID [facility] Last Admin: 11/17/17 23:00 Dose: 10 mg Risperidone (Risperdal Tab) 0.5 mg PO TID [facility] Last Admin: 11/17/17 18:11 Dose: 0.5 mg Fluticasone/Salmeterol (Advair Diskus 250/50) 1 puff INH RQ12 [facility] Last Admin: 11/18/17 08:01 Dose: 1 puff - Labs Labs: 11/16/17 07:17 11/16/17 07:17 PT 11.5 SECONDS (9.7-12.2) 11/16/17 07:17 INR 1.1 11/16/17 07:17 APTT 25 SECONDS (21-34) 11/16/17 07:17
[2017-11-18] MEDS: Enoxaparin 40 mg Syringe SC SCH (11:22)
[2017-11-18] MEDS: Pantoprazole 40 mg EC Tab PO SCH (11:23)
[2017-11-18] MEDS: Divalproex 250 mg DR Tab PO SCH (11:24)
[2017-11-18] MEDS: Clotrimazole 1% Cream 15 GM TUBE TOP SCH (11:25)
[2017-11-18] MEDS: Ammonium Lactate 12% Lotion (225 g) TOP SCH (11:26)
== END 2017-11-18 11:58 | DRG 871 ==
LOC: C.ER 22:29 → C.3T 23:35
PROVIDERS: ADMIT Internal Medicine Nephrology; ATTEND Internal Medicine Nephrology
DX: A41.9 Sepsis, unspecified organism (principal); J18.9 Pneumonia, unspecified organism; J44.1 Chronic obstructive pulmonary disease with (acute) exacerbation; F01.50 Vascular dementia, unspecified severity, without behavioral disturbance, psychotic disturbance, mood disturbance, and anxiety; G31.9 Degenerative disease of nervous system, unspecified; E11.9 Type 2 diabetes mellitus without complications; I11.0 Hypertensive heart disease with heart failure; I25.10 Atherosclerotic heart disease of native coronary artery without angina pectoris; I50.9 Heart failure, unspecified; Z87.891 Personal history of nicotine dependence; R45.1 Restlessness and agitation; R41.82 Altered mental status, unspecified

== ENCOUNTER 2018-02-22 14:53 | Inpatient (IN) | payer MEDICARE, MEDICAID ==
[2018-02-22] MEDS ORDERED: Sodium Chloride 0.9% 1,000 ML IV ONE (15:12)
[2018-02-22] MEDS ORDERED: Albuterol 0.083% Inhal Sol (2.5 mg/3 mL) UD IH STA (15:22)
[2018-02-22] MEDS ORDERED: Sodium Chloride 0.9% 1,000 ML ONE (15:29)
[2018-02-22] MEDS ORDERED: Albuterol 0.083% Inhal Sol (2.5 mg/3 mL) UD ONE (15:30)
[2018-02-22 15:34] LABS: VENOUS BLOOD GAS BASE EXCESS -0.8 mmol/L (0.0-2.0); VENOUS BLOOD GAS PCO2 52 mmHg (40-60); VENOUS BLOOD GAS PO2 20 mm/Hg (30-55); VENOUS BLOOD PH 7.31 (7.32-7.43)
[2018-02-22 15:37] LABS: BASO # 0.1 K/uL (0.0-0.2); BASO % 0.5 % (0.0-2.0); EOS # 0.2 K/uL (0.0-0.7); EOS % 1.1 % (0.0-4.0); LYMPH # 3.7 K/uL (1.0-4.3); LYMPH % 22.2 % (20.0-40.0); MEAN CORPUSCULAR HEMOGLOBIN 26.1 pg (27.0-31.0); MEAN CORPUSCULAR HGB CONC 31.3 g/dL (33.0-37.0); MEAN PLATELET VOLUME 7.5 fL (7.2-11.7); MONO # 1.5 K/uL (0.0-0.8); MONO % 9.1 % (0.0-10.0); NEUT # 11.3 K/uL (1.8-7.0); NEUT % 67.1 % (50.0-75.0); NRBC % 0.1 % (0.0-2.0); RBC 3.82 Mil/uL (4.40-5.90); RED CELL DISTRIBUTION WIDTH 18.1 % (11.5-14.5); WHITE BLOOD COUNT 16.9 K/uL (4.8-10.8)
[2018-02-22 15:41] LABS: MEAN CELL VOLUME 83.4 fL (80.0-94.0)
[2018-02-22 15:44] LABS: ALB/GLOB RATIO 1.3 (1.0-2.1); ALBUMIN 3.7 g/dL (3.5-5.0); ALT/SGPT 26 U/L (21-72); AST/SGOT 19 U/L (17-59); BLOOD UREA NITROGEN 24 mg/dL (9-20); CALCIUM 8.6 mg/dl (8.6-10.4); GFR NON-AFRICAN AMERICAN 60
[2018-02-22] MEDS ORDERED: Cefepime IV 2 gm in Dextrose 2 GM/100 ML BAG IVPB STA (15:45)
[2018-02-22 15:46] LABS: INR 1.1; PROTHROMBIN TIME 12.4 SECONDS (9.7-12.2)
[2018-02-22 15:56] LABS: B-TYPE NATRIURETIC PEPTIDE 60.9 pg/mL (0-900); CK-MB 1.19 ng/mL (0.0-3.38)
[2018-02-22] MEDS ORDERED: Lactated Ringer's 1,000 ML ONE (16:25)
[2018-02-22] MEDS ORDERED: Iodixanol 320 MG/ML 100 ML BOTTLE IV ONE ×2 (16:29→19:24)
--- NOTE | 2018-02-22 16:33 | C.PDOC ---
History Of Present Illness 72 year old male with PMHx of HTN, COPD, and DVT presents to the ED from [facility] for syncopal episode. As per nurse from [facility], patient "passed out". RN notes pt was hypotensive at the time and given fluids. Afterwards pt was baseline, ate lunch and then had another episode prompting ED visit. Pt states he feels "alright." He denies sob, chest pain, trauma, syncope, dizziness, fever, n/v, or any pain. Time Seen by Provider: 02/22/18 14:59 Chief Complaint (Nursing): Syncope History Per: Patient, Other (RN riaz from [facility]) History/Exam Limitations: no limitations Onset/Duration Of Symptoms: Hrs Past Medical History Vital Signs: Last Vital Signs Temp 99.6 F 02/22/18 16:29 Pulse 98 H 02/22/18 16:28 Resp 24 02/22/18 16:28 BP 103/49 L 02/22/18 16:28 Pulse Ox 100 02/22/18 16:28 - Medical History PMH: Anxiety, Arthritis, CAD, COPD, Dementia, Emphysema, HTN Denies: Chronic Kidney Disease - [facility] Procedures ASSISTANCE WITH RESPIRATORY VENTILATION, <24 HRS, CPAP (04/19/17) CL REDUC DISLOC-SHOULDER (10/29/12) INTRODUCTION OF ANTI-INFLAM INTO RESP TRACT, VIA OPENING (04/19/17) Family History: States: Unknown Family Hx - Social History Hx Tobacco Use: Yes Hx Alcohol Use: No Hx Substance Use: No - Immunization History Hx Tetanus Toxoid Vaccination: No Hx Influenza Vaccination: Yes Hx Pneumococcal Vaccination: Yes Review Of Systems Except As Marked, All Systems Reviewed And Found Negative. Physical Exam - Physical Exam Appears: Non-toxic, Chronically Ill, Other (uncomfortable) Skin: Warm, Dry Head: Atraumatic, Normacephalic Eye(s): bilateral: Normal Inspection, PERRL, EOMI Nose: Normal Oral Mucosa: Moist Neck: Normal, Supple Chest: Symmetrical Cardiovascular: Rhythm Regular (tachycardia) Respiratory: Accessory Muscle Use (Sister states "he always breathes like this."), Rhonchi Gastrointestinal/Abdominal: Normal Exam, Soft, No Tenderness Back: Normal Inspection Extremity: No Calf Tenderness, Other ((+) petechiae on soles of b/l feet. L foot colder than R, mottled skin. ) Extremity: Bilateral: Atraumatic Pulses: Left Dorsalis Pedis: Absent, Right Dorsalis Pedis: Decreased Neurological/Psych: No Oriented x3 (a&o x 2), Normal Speech ED Course And Treatment - Laboratory Results Result Diagrams: 02/22/18 15:25 02/22/18 15:25 ECG: Interpreted By Me, Viewed By Me ECG Rhythm: Sinus Rhythm Rate From EC O2 Sat by Pulse Oximetry: 100 - Radiology CXR: Interpreted by Me, Viewed By Me CXR Interpretation: Yes: No Acute Disease Progress Note: Hypotension noted- IVF ordered. PT had BM in ER, RN noted blood streak with wiping. Stool occult ordered. Sepsis called, additional fluids and abx ordered. No source identified. Case discussed with Dr Bell, who evaluated pt and agreed upon plan and discharge. Case discussed with Dr Kern, agreed upon admission. Case discussed with Dr Puentes, will consult. Disposition - Disposition Disposition: HOSPITALIZED Disposition Time: 19:40 Condition: STABLE - Clinical Impression Clinical Impression: COPD (chronic obstructive pulmonary disease), Sepsis, Arterial occlusion, DVT (deep venous thrombosis), Hypotension
--- NOTE | 2018-02-22 16:39 | CT ---
Date of service: 02/22/2018 PROCEDURE: CT HEAD WITHOUT CONTRAST. HISTORY: R/O Bleed COMPARISON: Noncontrast head CT performed 11/08/17 TECHNIQUE: Axial computed tomography images were obtained through the head/brain without intravenous contrast. Radiation dose: Total exam DLP = 1165.51 mGy-cm. This CT exam was performed using one or more of the following dose reduction techniques: Automated exposure control, adjustment of the mA and/or kV according to patient size, and/or use of iterative reconstruction technique. FINDINGS: HEMORRHAGE: No intracranial hemorrhage. BRAIN: Diffuse atrophy with prominence of the ventricles and sulci noted. No mass effect or edema. Intracranial atherosclerosis. Bilateral basal ganglia calcifications. Moderate to severe periventricular and subcortical white matter hypodensities, which are nonspecific, but often seen with chronic microvascular ischemic disease. 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 Please note that MRI with diffusion imaging is more sensitive in the detection of acute ischemic event. VENTRICLES: Ventricular prominence remains out of proportion to sulcal size and may be seen in the setting of NPH; correlate clinically for triad of dementia, ataxia, and incontinence. CALVARIUM: Unremarkable. PARANASAL SINUSES: Partially imaged right sinus with evidence of either hypoplastic sinus/chronic sinusitis or chronically thickened osseous matrix as may be seen with fibrous dysplasia. MASTOID AIR CELLS: Unremarkable as visualized. No inflammatory changes. OTHER FINDINGS: Deviated nasal septum. IMPRESSION: Moderate to severe nonspecific white matter changes. 6 mm right basal ganglia chronic lacunar type infarct. Generalized atrophy. Ventricular prominence remains out of proportion to sulcal size and may be seen in the setting of NPH; correlate clinically for triad of dementia, ataxia, and incontinence. Partially imaged right sinus with evidence of either hypoplastic sinus/chronic sinusitis or chronically thickened osseous matrix as may be seen with fibrous dysplasia.
[2018-02-22] MEDS ORDERED: Vancomycin 1 GM 1 GM/250 ML BAG IV STA (16:43)
[2018-02-22 16:54] LABS: SQUAMOUS EPITHIAL < 1 /hpf (0-5); URINE BACTERIA RARE (<OCC); URINE BILIRUBIN NEGATIVE (NEGATIVE); URINE BLOOD 1+ (NEGATIVE); URINE CLARITY Hazy (Clear); URINE COLOR Yellow (YELLOW); URINE GLUCOSE (UA) NORMAL (Normal); URINE LEUKOCYTE ESTERASE NEG Leu/uL (Negative); URINE PROTEIN NEGATIVE (NEGATIVE); URINE UROBILINOGEN NORMAL mg/dL (0.2-1.0)
--- NOTE | 2018-02-22 17:07 | RAD ---
HISTORY: SOB COMPARISON: Chest x-ray performed 11/08/17 TECHNIQUE: Chest, one view. FINDINGS: LUNGS: Hyperinflation may be seen in setting of COPD. No focal consolidation. Please note that chest x-ray has limited sensitivity for the detection of pulmonary masses. PLEURA: No significant pleural effusion identified. No definite pneumothorax . CARDIOVASCULAR: Heart size appears top normal. Atherosclerotic calcifications of the aortic knob. OSSEOUS STRUCTURES: Degenerative changes of the spine and shoulders. 15 x 5 mm and 4 mm calcifications at the glenohumeral joint space likely related to calcific tendinitis. VISUALIZED UPPER ABDOMEN: Unremarkable. OTHER FINDINGS: None. IMPRESSION: Hyperinflation may be seen in the setting of COPD. 15 x 5 mm and 4 mm calcifications at the glenohumeral joint space likely related to calcific tendinitis. Correlate clinically and follow-up as indicated.
[2018-02-22] MEDS ORDERED: Vancomycin 1 GM 1 GM/250 ML BAG IVPB ONE (17:32)
--- NOTE | 2018-02-22 17:39 | NM ---
VQ scan Technique: 11.5 mCi technetium 99-m Xe-133 Gas. 3.8 mCI technetium 99-m MAA administered intravenously. Comparison: Chest x-ray performed 02/22/18 Findings: Perfusion images do not show a segmental defect. Activity extends expected margin of the lung periphery. Ventilation images do not show any significant areas of ventilation defects. Mild tracheal activity related to the DTPA incidentally noted. Impression: Low probability for pulmonary embolus.
[2018-02-22] MEDS ORDERED: Lactated Ringer's 2,000 ML ONE (17:41)
[2018-02-22 18:40] LABS: VENOUS BLOOD GAS BASE EXCESS -2.2 mmol/L (0.0-2.0); VENOUS BLOOD GAS PCO2 41 mmHg (40-60); VENOUS BLOOD GAS PO2 27 mm/Hg (30-55); VENOUS BLOOD PH 7.36 (7.32-7.43)
[2018-02-22] MEDS ORDERED: Heparin25000 units/250ml 1/2NS 25,000 UNITS/250 ML BAG IV PRN (18:44)
--- NOTE | 2018-02-22 18:50 | CP.PCM.HP ---
History of Present Illness - History of Present Illness History of Present Illness: Per [facility] PGY1 H&P for Dr. Kern Pt is a 72yo M with PMH DVT, CAD, CHF, COPD, Dementia, HTN brought to ED from [facility] for syncopal episode. As per nurse from [facility], patient passed out 8 hours ago. Patient was given fluids, vitals were measured and blood pressure was low. Pt had 2 episodes of syncope as per sister at bedside. Pt cannot recall episodes at this time. He denies feeling sick, dizzy, or losing consciousness. Pt reports mild shortness of breath and chest pain. He denies fever, chills, nausea, vomiting, abdominal pain, dysuria. SxH: denies SocH: reports former tobacco use. denies etoh, recreational drug use. FamH: denies Allergies: NKDA Meds: as per EMR Present on Admission - Present on Admission Any Indicators Present on Admission: Yes History of DVT/PE: Yes Review of Systems - Review of Systems Review of Systems: as per HPI Past Patient History - Past Medical History & Family History Past Medical History?: Yes - Past Social History Smoking Status: Former Smoker - CARDIAC Hx Congestive Heart Failure: Yes Hx Hypertension: Yes - PULMONARY Hx Chronic Obstructive Pulmonary Disease (COPD): Yes Hx Emphysema: Yes - NEUROLOGICAL Hx Dementia: Yes - HEENT Hx HEENT Problems: No Hx Cataracts: Yes - RENAL Hx Chronic Kidney Disease: No - ENDOCRINE/METABOLIC Hx Endocrine Disorders: Yes Hx Diabetes Mellitus Type 2: Yes - HEMATOLOGICAL/ONCOLOGICAL Hx Blood Disorders: No - INTEGUMENTARY Hx Dermatological Problems: No - MUSCULOSKELETAL/RHEUMATOLOGICAL Hx Arthritis: Yes - GASTROINTESTINAL Hx Gastrointestinal Disorders: No - GENITOURINARY/GYNECOLOGICAL Hx Genitourinary Disorders: No - PSYCHIATRIC Hx Anxiety: Yes Hx Substance Use: No - SURGICAL HISTORY Hx Surgeries: No - ANESTHESIA Hx Anesthesia: No Meds Allergies/Adverse Reactions: Allergies Allergy/AdvReac Type Severity Reaction Status Date / Time shellfish derived Allergy ANAPHYLAXIS Verified 02/22/18 14:59 Physical Exam - Constitutional Appears: Chronically Ill - Head Exam Head Exam: ATRAUMATIC, NORMOCEPHALIC - Eye Exam Eye Exam: EOMI, Normal appearance, PERRL Pupil Exam: NORMAL ACCOMODATION - ENT Exam ENT Exam: Mucous Membranes Moist - Respiratory Exam Respiratory Exam: Chest Wall Tenderness, Rhonchi, Respiratory Distress. absent: Rales, Wheezes, NORMAL BREATHING PATTERN - Cardiovascular Exam Cardiovascular Exam: Tachycardia, REGULAR RHYTHM, +S1, +S2. absent: Gallop, Rubs, Systolic Murmur - GI/Abdominal Exam GI & Abdominal Exam: Normal Bowel Sounds, Soft. absent: Distended, Firm, Tenderness - Extremities Exam Extremities exam: Positive for: tenderness. Negative for: pedal edema - Neurological Exam Neurological exam: Alert, CN II-XII Intact Additional comments: AAOx2, to person and place - Psychiatric Exam Psychiatric exam: Normal Affect, Normal Mood - Skin Skin Exam: Normal Color Results - Vital Signs Recent Vital Signs: Last Vital Signs Temp 98.7 F 02/22/18 18:05 Pulse 113 H 02/22/18 18:05 Resp 20 02/22/18 18:05 BP 121/52 L 02/22/18 18:05 Pulse Ox 100 02/22/18 18:05 - Labs Result Diagrams: 02/22/18 15:25 02/22/18 15:25 Labs: Laboratory Results - last 24 hr 02/22/18 02/22/18 02/22/18 15:04 15:25 15:25 WBC 16.9 H RBC 3.82 L Hgb 10.0 L D Hct 31.8 L MCV 83.4 D MCH 26.1 L MCHC 31.3 L RDW 18.1 H Plt Count 361 MPV 7.5 Neut % (Auto) 67.1 Lymph % (Auto) 22.2 [place] % (Auto) 9.1 Eos % (Auto) 1.1 Baso % (Auto) 0.5 Neut # (Auto) 11.3 H Lymph # (Auto) 3.7 [place] # (Auto) 1.5 H Eos # (Auto) 0.2 Baso # (Auto) 0.1 PT 12.4 H INR 1.1 APTT 28 pO2 VBG pH VBG pCO2 VBG HCO3 VBG Total CO2 VBG O2 Sat (Calc) VBG Base Excess VBG Potassium Glucose Lactate Sodium Potassium Chloride Carbon Dioxide Anion Gap BUN Creatinine Est GFR ( Amer) Est GFR (Non-Af Amer) POC Glucose (mg/dL) 120 H Random Glucose Calcium Phosphorus Magnesium Total Bilirubin AST ALT Alkaline Phosphatase Total Creatine Kinase CK-MB (Mass) Troponin I NT-Pro-B Natriuret Pep Total Protein Albumin Globulin Albumin/Globulin Ratio Venous Blood Potassium Urine Color Urine Clarity Urine pH Ur Specific [place] Urine Protein Urine Glucose (UA) Urine Ketones Urine Blood Urine Nitrate Urine Bilirubin Urine Urobilinogen Ur Leukocyte Esterase Urine WBC (Auto) Urine RBC (Auto) Ur Squamous Epith Cells Urine Bacteria Stool Occult Blood Influenza Typ A,B (EIA) 02/22/18 02/22/18 02/22/18 15:25 15:25 15:29 WBC RBC Hgb Hct MCV MCH MCHC RDW Plt Count MPV Neut % (Auto) Lymph % (Auto) [place] % (Auto) Eos % (Auto) Baso % (Auto) Neut # (Auto) Lymph # (Auto) [place] # (Auto) Eos # (Auto) Baso # (Auto) PT INR APTT pO2 20 L VBG pH 7.31 L VBG pCO2 52 VBG HCO3 22.4 VBG Total CO2 27.8 VBG O2 Sat (Calc) 28.4 L VBG Base Excess -0.8 L VBG Potassium 4.1 Glucose 103 Lactate 3.7 H Sodium 138 141.0 Potassium 4.3 Chloride 102 106.0 Carbon Dioxide 24 Anion Gap 16 BUN 24 H Creatinine 1.2 Est GFR ( Amer) > 60 Est GFR (Non-Af Amer) 60 POC Glucose (mg/dL) Random Glucose 107 Calcium 8.6 Phosphorus Magnesium Total Bilirubin 0.3 AST 19 ALT 26 Alkaline Phosphatase 48 Total Creatine Kinase 61 CK-MB (Mass) 1.19 Troponin I < 0.0120 NT-Pro-B Natriuret Pep 60.9 Total Protein 6.6 Albumin 3.7 Globulin 2.9 Albumin/Globulin Ratio 1.3 Venous Blood Potassium 4.1 Urine Color Urine Clarity Urine pH Ur Specific [place] Urine Protein Urine Glucose (UA) Urine Ketones Urine Blood Urine Nitrate Urine Bilirubin Urine Urobilinogen Ur Leukocyte Esterase Urine WBC (Auto) Urine RBC (Auto) Ur Squamous Epith Cells Urine Bacteria Stool Occult Blood Positive H Influenza Typ A,B (EIA) 02/22/18 02/22/18 02/22/18 16:09 16:45 18:19 WBC RBC Hgb Hct MCV MCH MCHC RDW Plt Count MPV Neut % (Auto) Lymph % (Auto) [place] % (Auto) Eos % (Auto) Baso % (Auto) Neut # (Auto) Lymph # (Auto) [place] # (Auto) Eos # (Auto) Baso # (Auto) PT INR APTT pO2 VBG pH VBG pCO2 VBG HCO3 VBG Total CO2 VBG O2 Sat (Calc) VBG Base Excess VBG Potassium Glucose Lactate Sodium Potassium Chloride Carbon Dioxide Anion Gap BUN Creatinine Est GFR ( Amer) Est GFR (Non-Af Amer) POC Glucose (mg/dL) Random Glucose Calcium Phosphorus 4.5 Magnesium 2.1 Total Bilirubin AST ALT Alkaline Phosphatase Total Creatine Kinase CK-MB (Mass) Troponin I NT-Pro-B Natriuret Pep Total Protein Albumin Globulin Albumin/Globulin Ratio Venous Blood Potassium Urine Color Yellow Urine Clarity Hazy Urine pH 5.0 Ur Specific [place] 1.019 Urine Protein Negative Urine Glucose (UA) Normal Urine Ketones Negative Urine Blood 1+ H Urine Nitrate Negative Urine Bilirubin Negative Urine Urobilinogen Normal Ur Leukocyte Esterase Neg Urine WBC (Auto) 7 H Urine RBC (Auto) 4 H Ur Squamous Epith Cells < 1 Urine Bacteria Rare Stool Occult Blood Influenza Typ A,B (EIA) Negative for flu a/b 02/22/18 18:35 WBC RBC Hgb Hct MCV MCH MCHC RDW Plt Count MPV Neut % (Auto) Lymph % (Auto) [place] % (Auto) Eos % (Auto) Baso % (Auto) Neut # (Auto) Lymph # (Auto) [place] # (Auto) Eos # (Auto) Baso # (Auto) PT INR APTT pO2 27 L VBG pH 7.36 VBG pCO2 41 VBG HCO3 21.8 VBG Total CO2 24.5 VBG O2 Sat (Calc) 52.7 VBG Base Excess -2.2 L VBG Potassium 4.1 Glucose 70 L Lactate 3.4 H Sodium 139.0 Potassium Chloride 111.0 H Carbon Dioxide Anion Gap BUN Creatinine Est GFR ( Amer) Est GFR (Non-Af Amer) POC Glucose (mg/dL) Random Glucose Calcium Phosphorus Magnesium Total Bilirubin AST ALT Alkaline Phosphatase Total Creatine Kinase CK-MB (Mass) Troponin I NT-Pro-B Natriuret Pep Total Protein Albumin Globulin Albumin/Globulin Ratio Venous Blood Potassium 4.1 Urine Color Urine Clarity Urine pH Ur Specific [place] Urine Protein Urine Glucose (UA) Urine Ketones Urine Blood Urine Nitrate Urine Bilirubin Urine Urobilinogen Ur Leukocyte Esterase Urine WBC (Auto) Urine RBC (Auto) Ur Squamous Epith Cells Urine Bacteria Stool Occult Blood Influenza Typ A,B (EIA) Assessment & Plan - Assessment and Plan (Free Text) Assessment: 72yo M with PMH DVT, CAD, CHF, COPD, Dementia, HTN brought to ED from [facility] for syncopal episode. Code Sepsis was called. Pt found to have DVT in LLE. V/Q scan low likelihood PE. Plan: DVT - Doppler US: LLE DVT and arterial occlusion - h/o DVT - V/Q scan: low probability of PE - hold eliquis - start high dose heparin as per protocol - f/u CT angio to r/o PE - Vasc Sx consulted, Dr. Puentes - no sx intervention at this time, continue medical management. recs appreciated SIRS - code sepsis called, although no identifiable source of infection - hypotensive, leukocytosis - lactate 3.7 - CXR: no infiltrates - CT head: generalized atrophy, ventricular prominence - UA neg for leukocyte esterase - continue IVF - vanco 1g IV q24h - f/u BCx, UCx COPD - CXR: COPD - restart home advair - restart home albuterol - restart home breo-elipta - restart home prednisone - NC 2L PRN Dementia - restart home donepizil - restart home risperdal - restart home depakote - restart home mirtazipine PPX GI: pepcid HHD Case reviewed with Dr. Kern
[2018-02-22] MEDS ORDERED: DiphenhydrAMINE 50 mg/ml Inj IVP STA (18:51)
[2018-02-22] MEDS: Lactated Ringer's 1,000 ML IV SCH (19:23)
--- NOTE | 2018-02-22 20:56 | CP.PCM.CON ---
History of Present Illness - History of Present Illness History of Present Illness: Vascular Surgery Consult note. Dr. Puentes 72yo M with PMHx of DVT, CAD, CHF, COPD, Dementia, HTN, DM here for evaluation after having a syncopal episode at [facility]. Patient obtained a b/l lower extremity US with evidence of LLE DVT and possible arterial disease. Vascular surgery consult was obtained for further recommendations. Patient currently denies any acute lower extremity pain, swelling or weakness. A complete 12-point ROS unable to be completed due to pt hx of dementia. PMHx: DVT, CAD, COPD, CHF, Dementia, HTN, DM PSHx: Denies Family Hx: non-contributory Social Hx: Previous heavy tobacco use. Denies ETOH or illicit drugs. Lives at [facility] Allergy: Shellfish Review of Systems - Review of Systems Systems not reviewed;Unavailable: Dementia Past Patient History - Past Medical History & Family History Past Medical History?: Yes Past Family History: Reviewed and not pertinent - Past Social History Smoking Status: Former Smoker - CARDIAC Hx Hypertension: Yes - PULMONARY Hx Chronic Obstructive Pulmonary Disease (COPD): Yes Hx Emphysema: Yes - NEUROLOGICAL Hx Dementia: Yes - HEENT Hx HEENT Problems: No Hx Cataracts: Yes - RENAL Hx Chronic Kidney Disease: No - ENDOCRINE/METABOLIC Hx Endocrine Disorders: Yes Hx Diabetes Mellitus Type 2: Yes - HEMATOLOGICAL/ONCOLOGICAL Hx Blood Disorders: No - INTEGUMENTARY Hx Dermatological Problems: No - MUSCULOSKELETAL/RHEUMATOLOGICAL Hx Falls: Yes - GASTROINTESTINAL Hx Gastrointestinal Disorders: No - GENITOURINARY/GYNECOLOGICAL Hx Genitourinary Disorders: No - PSYCHIATRIC Hx Anxiety: Yes Hx Substance Use: No - SURGICAL HISTORY Hx Surgeries: No - ANESTHESIA Hx Anesthesia: No Meds Allergies/Adverse Reactions: Allergies Allergy/AdvReac Type Severity Reaction Status Date / Time shellfish derived Allergy ANAPHYLAXIS Verified 02/22/18 14:59 - Medications Medications: Current Medications Albuterol Sulfate (Albuterol 0.083% Inhal Josey (2.5 Mg/3 Ml) Ud) 2.5 mg INH Q6 PRN PRN Reason: Shortness of Breath Clotrimazole (Lotrimin 1%) 0 gm EXT HS [facility] Divalproex Sodium (Depakote Er) 250 mg PO TID [facility] Donepezil HCl (Aricept) 5 mg PO HS [facility] Famotidine (Pepcid) 20 mg PO BID [facility] Fluticasone/Vilanterol (Breo Ellipta 100-25 Mcg Inh) 1 puff INH RQ24 [facility] Heparin Sodium/Sodium Chloride (Heparin 16716 Units/250ml 1/2 Normal Saline) 25,000 units in 250 mls @ 12.41 mls/hr IV .Q20H9M PRN; Protocol PRN Reason: ADJUST RATE PER PROTOCOL Vancomycin HCl 1 gm/ Sodium (Chloride) 250 mls @ 166.7 mls/hr IVPB Q24H [facility]; Protocol Lactated Ringer's (Lactated Ringer's) 1,000 mls @ 100 mls/hr IV .Q10H [facility] Last Admin: 02/22/18 19:23 Dose: 100 mls/hr Mirtazapine (Remeron) 7.5 mg PO HS [facility] Prednisone (Prednisone Tab) 10 mg PO DAILY [facility] Risperidone (Risperdal Tab) 0.5 mg PO Q8H [facility] Last Admin: 02/22/18 19:20 Dose: 0.5 mg Physical Exam - Constitutional Appears: Chronically Ill - Head Exam Head Exam: ATRAUMATIC, NORMAL INSPECTION, NORMOCEPHALIC - Eye Exam Eye Exam: EOMI, Normal appearance. absent: Scleral icterus - Respiratory Exam Respiratory Exam: absent: Accessory Muscle Use - Cardiovascular Exam Cardiovascular Exam: absent: JVD - GI/Abdominal Exam GI & Abdominal Exam: Soft. absent: Distended, Firm, Guarding, Rebound, Rigid, Tenderness - Extremities Exam Extremities exam: Negative for: pedal edema Additional comments: mild tenderness to palpation bilateral lower extremities - Neurological Exam Neurological exam: Alert - Skin Skin Exam: Warm Results - Vital Signs Recent Vital Signs: Last Vital Signs Temp 97.4 F L 02/22/18 20:15 Pulse 105 H 02/22/18 20:15 Resp 20 02/22/18 20:15 BP 110/61 02/22/18 20:15 Pulse Ox 100 02/22/18 20:15 - Labs Result Diagrams: 02/22/18 15:25 02/22/18 15:25 Labs: Laboratory Results - last 24 hr 02/22/18 02/22/18 02/22/18 15:04 15:25 15:25 WBC 16.9 H RBC 3.82 L Hgb 10.0 L D Hct 31.8 L MCV 83.4 D MCH 26.1 L MCHC 31.3 L RDW 18.1 H Plt Count 361 MPV 7.5 Neut % (Auto) 67.1 Lymph % (Auto) 22.2 Glades % (Auto) 9.1 Eos % (Auto) 1.1 Baso % (Auto) 0.5 Neut # (Auto) 11.3 H Lymph # (Auto) 3.7 Glades # (Auto) 1.5 H Eos # (Auto) 0.2 Baso # (Auto) 0.1 PT 12.4 H INR 1.1 APTT 28 pO2 VBG pH VBG pCO2 VBG HCO3 VBG Total CO2 VBG O2 Sat (Calc) VBG Base Excess VBG Potassium Glucose Lactate Sodium Potassium Chloride Carbon Dioxide Anion Gap BUN Creatinine Est GFR ( Amer) Est GFR (Non-Af Amer) POC Glucose (mg/dL) 120 H Random Glucose Calcium Phosphorus Magnesium Total Bilirubin AST ALT Alkaline Phosphatase Total Creatine Kinase CK-MB (Mass) Troponin I NT-Pro-B Natriuret Pep Total Protein Albumin Globulin Albumin/Globulin Ratio Venous Blood Potassium Urine Color Urine Clarity Urine pH Ur Specific [place] Urine Protein Urine Glucose (UA) Urine Ketones Urine Blood Urine Nitrate Urine Bilirubin Urine Urobilinogen Ur Leukocyte Esterase Urine WBC (Auto) Urine RBC (Auto) Ur Squamous Epith Cells Urine Bacteria Stool Occult Blood Influenza Typ A,B (EIA) 02/22/18 02/22/18 02/22/18 15:25 15:25 15:29 WBC RBC Hgb Hct MCV MCH MCHC RDW Plt Count MPV Neut % (Auto) Lymph % (Auto) Glades % (Auto) Eos % (Auto) Baso % (Auto) Neut # (Auto) Lymph # (Auto) Glades # (Auto) Eos # (Auto) Baso # (Auto) PT INR APTT pO2 20 L VBG pH 7.31 L VBG pCO2 52 VBG HCO3 22.4 VBG Total CO2 27.8 VBG O2 Sat (Calc) 28.4 L VBG Base Excess -0.8 L VBG Potassium 4.1 Glucose 103 Lactate 3.7 H Sodium 138 141.0 Potassium 4.3 Chloride 102 106.0 Carbon Dioxide 24 Anion Gap 16 BUN 24 H Creatinine 1.2 Est GFR ( Amer) > 60 Est GFR (Non-Af Amer) 60 POC Glucose (mg/dL) Random Glucose 107 Calcium 8.6 Phosphorus Magnesium Total Bilirubin 0.3 AST 19 ALT 26 Alkaline Phosphatase 48 Total Creatine Kinase 61 CK-MB (Mass) 1.19 Troponin I < 0.0120 NT-Pro-B Natriuret Pep 60.9 Total Protein 6.6 Albumin 3.7 Globulin 2.9 Albumin/Globulin Ratio 1.3 Venous Blood Potassium 4.1 Urine Color Urine Clarity Urine pH Ur Specific [place] Urine Protein Urine Glucose (UA) Urine Ketones Urine Blood Urine Nitrate Urine Bilirubin Urine Urobilinogen Ur Leukocyte Esterase Urine WBC (Auto) Urine RBC (Auto) Ur Squamous Epith Cells Urine Bacteria Stool Occult Blood Positive H Influenza Typ A,B (EIA) 02/22/18 02/22/18 02/22/18 16:09 16:45 18:19 WBC RBC Hgb Hct MCV MCH MCHC RDW Plt Count MPV Neut % (Auto) Lymph % (Auto) Glades % (Auto) Eos % (Auto) Baso % (Auto) Neut # (Auto) Lymph # (Auto) Glades # (Auto) Eos # (Auto) Baso # (Auto) PT INR APTT pO2 VBG pH VBG pCO2 VBG HCO3 VBG Total CO2 VBG O2 Sat (Calc) VBG Base Excess VBG Potassium Glucose Lactate Sodium Potassium Chloride Carbon Dioxide Anion Gap BUN Creatinine Est GFR ( Amer) Est GFR (Non-Af Amer) POC Glucose (mg/dL) Random Glucose Calcium Phosphorus 4.5 Magnesium 2.1 Total Bilirubin AST ALT Alkaline Phosphatase Total Creatine Kinase CK-MB (Mass) Troponin I NT-Pro-B Natriuret Pep Total Protein Albumin Globulin Albumin/Globulin Ratio Venous Blood Potassium Urine Color Yellow Urine Clarity Hazy Urine pH 5.0 Ur Specific [place] 1.019 Urine Protein Negative Urine Glucose (UA) Normal Urine Ketones Negative Urine Blood 1+ H Urine Nitrate Negative Urine Bilirubin Negative Urine Urobilinogen Normal Ur Leukocyte Esterase Neg Urine WBC (Auto) 7 H Urine RBC (Auto) 4 H Ur Squamous Epith Cells < 1 Urine Bacteria Rare Stool Occult Blood Influenza Typ A,B (EIA) Negative for flu a/b 02/22/18 18:35 WBC RBC Hgb Hct MCV MCH MCHC RDW Plt Count MPV Neut % (Auto) Lymph % (Auto) Glades % (Auto) Eos % (Auto) Baso % (Auto) Neut # (Auto) Lymph # (Auto) Glades # (Auto) Eos # (Auto) Baso # (Auto) PT INR APTT pO2 27 L VBG pH 7.36 VBG pCO2 41 VBG HCO3 21.8 VBG Total CO2 24.5 VBG O2 Sat (Calc) 52.7 VBG Base Excess -2.2 L VBG Potassium 4.1 Glucose 70 L Lactate 3.4 H Sodium 139.0 Potassium Chloride 111.0 H Carbon Dioxide Anion Gap BUN Creatinine Est GFR ( Amer) Est GFR (Non-Af Amer) POC Glucose (mg/dL) Random Glucose Calcium Phosphorus Magnesium Total Bilirubin AST ALT Alkaline Phosphatase Total Creatine Kinase CK-MB (Mass) Troponin I NT-Pro-B Natriuret Pep Total Protein Albumin Globulin Albumin/Globulin Ratio Venous Blood Potassium 4.1 Urine Color Urine Clarity Urine pH Ur Specific [place] Urine Protein Urine Glucose (UA) Urine Ketones Urine Blood Urine Nitrate Urine Bilirubin Urine Urobilinogen Ur Leukocyte Esterase Urine WBC (Auto) Urine RBC (Auto) Ur Squamous Epith Cells Urine Bacteria Stool Occult Blood Influenza Typ A,B (EIA) Assessment & Plan - Assessment and Plan (Free Text) Assessment: 72yo M with LLE DVT and possible arterial disease Plan: - No acute surgical intervention warranted at this time - We will follow the patient's clinical course and make recommendations as needed - Continue medical management - Agree with anticoagulation for now Further recs as per Dr. Deloris Broussard PGY2 surgery
[2018-02-22] MEDS: Albuterol 0.083% Inhal Sol (2.5 mg/3 mL) UD INH PRN (21:34)
[2018-02-22] MEDS: Clotrimazole 1% Cream 15 GM TUBE EXT SCH (22:23)
[2018-02-23 04:54] LABS: BASO % 0.4 % (0.0-2.0); EOS # 0.2 K/uL (0.0-0.7); EOS % 1.8 % (0.0-4.0); HEMOGLOBIN 8.8 g/dL (12.0-18.0); MEAN CELL VOLUME 82.7 fL (80.0-94.0); MEAN CORPUSCULAR HEMOGLOBIN 26.6 pg (27.0-31.0); MEAN CORPUSCULAR HGB CONC 32.1 g/dL (33.0-37.0); MEAN PLATELET VOLUME 7.5 fL (7.2-11.7); MONO # 0.9 K/uL (0.0-0.8); MONO % 9.3 % (0.0-10.0); NEUT # 5.8 K/uL (1.8-7.0); NEUT % 58.5 % (50.0-75.0); RBC 3.33 Mil/uL (4.40-5.90); WHITE BLOOD COUNT 9.9 K/uL (4.8-10.8)
[2018-02-23] MEDS ORDERED: Heparin25000 units/250ml 1/2NS 25,000 UNITS/250 ML BAG IV PRN ×2 (06:45→21:39)
[2018-02-23 06:59] LABS: ALB/GLOB RATIO 1.1 (1.0-2.1); ALBUMIN 2.7 g/dL (3.5-5.0); ALT/SGPT 24 U/L (21-72); AST/SGOT 14 U/L (17-59); BLOOD UREA NITROGEN 14 mg/dL (9-20); CALCIUM 7.9 mg/dl (8.6-10.4); GFR NON-AFRICAN AMERICAN > 60
[2018-02-23] MEDS ORDERED: Fluticasone-Vilanterol 100/25mcg Diskus INH SCH (08:00)
--- NOTE | 2018-02-23 08:41 | CT ---
Date of service: 02/22/2018 PROCEDURE: CT Chest with contrast (Pulmonary Angiogram) HISTORY: DVT COMPARISON: None available. TECHNIQUE: Axial computed tomography images were obtained of the chest in the pulmonary arterial phase of enhancement. Coronal and sagittal reformatted images were created and reviewed. Intravenous contrast dose: 100 cc Visipaque 320 Radiation dose: Total exam DLP = 439.67 mGy-cm. This CT exam was performed using one or more of the following dose reduction techniques: Automated exposure control, adjustment of the mA and/or kV according to patient size, and/or use of iterative reconstruction technique. FINDINGS: PULMONARY ARTERIES: Unremarkable. No pulmonary embolism. AORTA: No acute findings. No thoracic aortic aneurysm. There is atherosclerotic calcification of the thoracic aorta LUNGS: No infiltrate. No pulmonary mass. Linear scar/atelectasis both lower lobes, left greater than right. PLEURAL SPACES: Unremarkable. No effusion or pneumothorax. HEART: Unremarkable. No cardiomegaly. No significant pericardial effusion. LYMPH NODES: Subcentimeter left hilar lymph node common nonspecific. No other mediastinal or hilar lymphadenopathy. BONES, CHEST WALL: Minimal compression deformity of the superior T8 vertebral endplate, of indeterminate age. No other fracture. OTHER FINDINGS: Unremarkable. IMPRESSION: No evidence of pulmonary embolism. No acute infiltrate. Minimal compression deformity of the superior T8 vertebral endplate, age indeterminate. No other significant abnormality. The preliminary findings for this examination were reported by [facility] Radiology at 8:07 p.m. on 02/22/2018. There is concurrence of this report with the preliminary findings.
[2018-02-23] MEDS ORDERED: Home Med 1 UNIT (Budesonide/Formoterol Fumarate [Symbicort 160-4.5 Mcg Inhaler] 1 AER) IH SCH (10:00)
--- NOTE | 2018-02-23 12:20 | CARD ---
APPROVED REPORT Date of service: 02/22/2018 EKG Measurement Heart [id number] <Conclusion> Normal sinus rhythm Normal ECG
--- NOTE | 2018-02-23 13:06 | CP.PCM.PN ---
<Per Cardoza - Last Filed: 02/23/18 13:07> Subjective - Date & Time of Evaluation Date of Evaluation: 02/23/18 Time of Evaluation: 13:04 - Subjective Subjective: Per Cardoza PGY1 Progress Note for Dr. Kern Pt was examined at bedside this morning. He reports some shortness of breath. He denies any dizziness, chest pain, abdominal pain, nausea, vomiting, diarrhea, dysuria. Objective - Vital Signs/Intake and Output Vital Signs (last 24 hours): Temp Pulse Resp BP Pulse Ox 98.2 F 99 H 20 144/71 98 02/23/18 07:00 02/23/18 07:00 02/23/18 07:00 02/23/18 07:00 02/23/18 07:00 Intake and Output: 02/23/18 02/23/18 06:59 18:59 Intake Total 1297.1 Balance 1297.1 - Medications Medications: Current Medications Albuterol Sulfate (Albuterol 0.083% Inhal Josey (2.5 Mg/3 Ml) Ud) 2.5 mg INH Q6 PRN PRN Reason: Shortness of Breath Last Admin: 02/22/18 21:34 Dose: 2.5 mg Clotrimazole (Lotrimin 1%) 0 gm EXT HS [facility] Last Admin: 02/22/18 22:23 Dose: 1 applic Donepezil HCl (Aricept) 5 mg PO HS [facility] Last Admin: 02/22/18 22:23 Dose: 5 mg Famotidine (Pepcid) 20 mg PO BID [facility] Last Admin: 02/23/18 10:59 Dose: 20 mg Fluticasone/Vilanterol (Breo Ellipta 100-25 Mcg Inh) 1 puff INH RQ24 [facility] Vancomycin HCl 1 gm/ Sodium (Chloride) 250 mls @ 166.7 mls/hr IVPB Q24H [facility]; Protocol Lactated Ringer's (Lactated Ringer's) 1,000 mls @ 100 mls/hr IV .Q10H [facility] Last Admin: 02/22/18 19:23 Dose: 100 mls/hr Heparin Sodium/Sodium Chloride (Heparin 74084 Units/250ml 1/2 Normal Saline) 25,000 units in 250 mls @ 10.342 mls/hr IV .Q24H PRN; Protocol PRN Reason: ADJUST RATE PER PROTOCOL Last Admin: 02/23/18 06:10 Dose: 15 units/kg/hr, 10.342 mls/hr Mirtazapine (Remeron) 7.5 mg PO HS [facility] Last Admin: 02/22/18 22:24 Dose: 7.5 mg Prednisone (Prednisone Tab) 10 mg PO DAILY [facility] Last Admin: 02/23/18 10:59 Dose: 10 mg Risperidone (Risperdal Tab) 0.5 mg PO Q8H [facility] Last Admin: 02/23/18 11:00 Dose: 0.5 mg Valproate Sodium (Depakene Cap) 250 mg PO TID [facility] Last Admin: 02/23/18 10:59 Dose: 250 mg - Labs Labs: 02/23/18 04:38 02/23/18 06:35 PT 12.4 SECONDS (9.7-12.2) H 02/22/18 15:25 INR 1.1 02/22/18 15:25 APTT 155 SECONDS (21-34) H* D 02/23/18 04:38 - Additional Findings Additional findings: - Constitutional Appears: Chronically Ill - Head Exam Head Exam: ATRAUMATIC, NORMOCEPHALIC - Eye Exam Eye Exam: EOMI, Normal appearance, PERRL Pupil Exam: NORMAL ACCOMODATION - ENT Exam ENT Exam: Mucous Membranes Moist - Respiratory Exam Respiratory Exam: Chest Wall Tenderness, Rhonchi, Respiratory Distress. absent: Rales, Wheezes, NORMAL BREATHING PATTERN - Cardiovascular Exam Cardiovascular Exam: Tachycardia, REGULAR RHYTHM, +S1, +S2. absent: Gallop, Rubs, Systolic Murmur - GI/Abdominal Exam GI & Abdominal Exam: Normal Bowel Sounds, Soft. absent: Distended, Firm, Tenderness - Extremities Exam Extremities exam: Negative for: pedal edema, tenderness. - Neurological Exam Neurological exam: Alert, CN II-XII Intact Additional comments: AAOx2, to person and place - Psychiatric Exam Psychiatric exam: Normal Affect, Normal Mood - Skin Skin Exam: Normal Color Assessment and Plan - Assessment and Plan (Free Text) Assessment: 72yo M with PMH DVT, CAD, CHF, COPD, Dementia, HTN brought to ED from [facility] for syncopal episode. Code Sepsis was called. Pt found to have DVT in LLE. V/Q scan low likelihood PE. Plan: DVT - Doppler US: LLE DVT and arterial occlusion - h/o DVT - V/Q scan: low probability of PE - CT angio: no PE - hold eliquis - heparin drip as per protocol - [facility] Sx consulted, Dr. Puentes - no sx intervention at this time, continue medical management. recs appreciated SIRS, improved - code sepsis called, although no identifiable source of infection - pt afebrile, no leukocytosis - rpt lactate 1.1 - CXR: no infiltrates - CT head: generalized atrophy, ventricular prominence - UA neg for leukocyte esterase - UCX neg - LR @100cc/hr - vanco 1g IV q24h - f/u BCx COPD - CXR: COPD - albuterol 2.5 INH q6 PRN - breo-elipta 1 puff q24h - prednisone 10mg PO daily - NC 2L PRN - Pulm consulted, Dr. Blankenship - f/u recs Dementia - donepizil 5mg PO HS - risperdal 0.5mg PO q8h - depakote 250mg PO TID - mirtazipine 7.5mg PO HS PPX GI: pepcid HHD Pt seen and case reviewed with Dr. Kern <Carlos Kern Jr. - Last Filed: 02/28/18 15:33> Objective - Vital Signs/Intake and Output Vital Signs (last 24 hours): Temp Pulse Resp BP Pulse Ox 98.5 F 79 20 150/68 96 02/26/18 07:30 02/26/18 07:30 02/26/18 07:30 02/26/18 07:30 02/26/18 07:30 - Labs Labs: 02/26/18 07:04 02/26/18 07:04 PT 12.4 SECONDS (9.7-12.2) H 02/22/18 15:25 INR 1.1 02/22/18 15:25 APTT 64 SECONDS (21-34) H D 02/25/18 01:24 Attending/Attestation - Attestation I have personally seen and examined this patient.: Yes I have fully participated in the care of the patient.: Yes I have reviewed all pertinent clinical information, including history, physical exam and plan: Yes Notes (Text): 02/28/18 15:33 reviewed resident note, agree with findings and plan of care.
--- NOTE | 2018-02-23 13:17 | VASCLAB ---
Date of service: 02/22/2018 PROCEDURE: Left Lower Extremity Venous Duplex Exam. HISTORY: Left leg swelling r/o dvt PRIORS: None. TECHNIQUE: Left common femoral, femoral, popliteal and posterior tibial, peroneal and great saphenous veins were evaluated. Flow was assessed with color Doppler, compressibility, assessment of phasic flow and augmentation response. Report prepared by BIB Bowling, RVT FINDINGS: LEFT: 1. Common Femoral Vein: 1.1. Compressibility - Partial: Thrombus - Acute : Flow - Absent : Augmentation - None: Reflux - None. 2. Femoral Vein: 2.1. Compressibility - Partial: Thrombus - Acute: Flow - Reduced : Augmentation - None: Reflux - None. 3. Popliteal Vein: 3.1. Compressibility - Fully compressible: Thrombus - None: Flow - Phasic: Augmentation -Normal: Reflux - Yes. 4. Posterior Tibial Vein: 4.1. Compressibility - Fully compressible: Thrombus - None: Flow - Phasic: Augmentation -Normal: Reflux - Yes. 5. Peroneal Vein: 5.1. Compressibility - Fully compressible: Thrombus - None: Flow - Phasic: Augmentation -Normal: Reflux - None. 6. Great Saphenous Vein: 6.1. Compressibility - Fully compressible: Thrombus - None: Flow - Phasic: Augmentation - Normal: Reflux - Yes. OTHER FINDINGS: FIDELIA Curtis notified about the findings. IMPRESSION: Acute thrombosis of the left common femoral and femoral veins with severe reduction of the venous return. Valvular incompetence of the left popliteal, posterior tibial and greater saphenous veins. Normal venous flow noted in the right common femoral vein.
--- NOTE | 2018-02-23 13:17 | VASCLAB ---
Date of service: 02/22/2018 PROCEDURE: Left Lower Extremity Arterial Exam. HISTORY: left leg cool COMPARISON: None available. TECHNIQUE: Grayscale and duplex Doppler evaluation of the left common femoral, femoral, profunda femoral, popliteal, posterior tibial, anterior tibial and dorsalis pedis arteries was performed. Report prepared by BIB Bowling, RVT FINDINGS: LEFT LOWER EXTREMITY: * Common Femoral Artery: Peak Systolic Velocity - 43: Doppler Waveform: Monophasic: Plaque description - Calcific * Profunda Femoral Artery: Peak Systolic Velocity - 36: Doppler Waveform: Monophasic: Plaque description - Calcific * Femoral Artery o Proximal Segment: Peak Systolic Velocity - 0: Doppler Waveform: Absent: Plaque description - Calcific o Middle Segment: Peak Systolic Velocity - 0: Doppler Waveform: Absent: Plaque description - Calcific o Distal Segment: Peak Systolic Velocity - 13: Doppler Waveform: Monophasic: Plaque description - Calcific * Popliteal Artery o Proximal Segment: Peak Systolic Velocity - 13: Doppler Waveform: Monophasic: Plaque description - Calcific o Middle Segment: Peak Systolic Velocity - 13: Doppler Waveform: Monophasic: Plaque description - Calcific o Distal Segment: Peak Systolic Velocity - 13: Doppler Waveform: Monophasic: Plaque description - Calcific * Posterior Tibial Artery: Peak Systolic Velocity - 0: Doppler Waveform: Absent: Plaque description - Calcific * Anterior Tibial Artery: Peak Systolic Velocity - 0: Doppler Waveform: Absent: Plaque description - Calcific * Dorsalis Pedis Artery: Peak Systolic Velocity - 0: Doppler Waveform: Absent: Plaque description - Calcific OTHER FINDINGS: FIDELIA Curtis notified about the findings. IMPRESSION: LEFT: Occlusion of the left superficial femoral, anterior tibial and distal posterior tibial arteries.
--- NOTE | 2018-02-23 13:49 | CP.PCM.PN ---
Subjective - Date & Time of Evaluation Date of Evaluation: 02/23/18 Time of Evaluation: 09:45 - Subjective Subjective: Vascular Surgery Pt seen and examined. No acute events overnight. No Lower extremity pain. Reports some SOB. Objective - Vital Signs/Intake and Output Vital Signs (last 24 hours): Temp Pulse Resp BP Pulse Ox 98.2 F 99 H 20 144/71 98 02/23/18 07:00 02/23/18 07:00 02/23/18 07:00 02/23/18 07:00 02/23/18 07:00 Intake and Output: 02/23/18 02/23/18 06:59 18:59 Intake Total 1297.1 Balance 1297.1 - Medications Medications: Current Medications Acetaminophen (Tylenol 325mg Tab) 650 mg PO Q6 PRN PRN Reason: Fever >100.4 F Albuterol Sulfate (Albuterol 0.083% Inhal Josey (2.5 Mg/3 Ml) Ud) 2.5 mg INH Q6 PRN PRN Reason: Shortness of Breath Last Admin: 02/22/18 21:34 Dose: 2.5 mg Clotrimazole (Lotrimin 1%) 0 gm EXT HS [facility] Last Admin: 02/22/18 22:23 Dose: 1 applic Donepezil HCl (Aricept) 5 mg PO HS [facility] Last Admin: 02/22/18 22:23 Dose: 5 mg Famotidine (Pepcid) 20 mg PO BID [facility] Last Admin: 02/23/18 10:59 Dose: 20 mg Fluticasone/Vilanterol (Breo Ellipta 100-25 Mcg Inh) 1 puff INH RQ24 [facility] Vancomycin HCl 1 gm/ Sodium (Chloride) 250 mls @ 166.7 mls/hr IVPB Q24H [facility]; Protocol Lactated Ringer's (Lactated Ringer's) 1,000 mls @ 100 mls/hr IV .Q10H [facility] Last Admin: 02/22/18 19:23 Dose: 100 mls/hr Heparin Sodium/Sodium Chloride (Heparin 00296 Units/250ml 1/2 Normal Saline) 25,000 units in 250 mls @ 10.342 mls/hr IV .Q24H PRN; Protocol PRN Reason: ADJUST RATE PER PROTOCOL Last Admin: 02/23/18 06:10 Dose: 15 units/kg/hr, 10.342 mls/hr Mirtazapine (Remeron) 7.5 mg PO HS [facility] Last Admin: 02/22/18 22:24 Dose: 7.5 mg Prednisone (Prednisone Tab) 10 mg PO DAILY [facility] Last Admin: 02/23/18 10:59 Dose: 10 mg Risperidone (Risperdal Tab) 0.5 mg PO Q8H [facility] Last Admin: 02/23/18 11:00 Dose: 0.5 mg Valproate Sodium (Depakene Cap) 250 mg PO TID [facility] Last Admin: 02/23/18 10:59 Dose: 250 mg - Labs Labs: 02/23/18 04:38 02/23/18 06:35 PT 12.4 SECONDS (9.7-12.2) H 02/22/18 15:25 INR 1.1 02/22/18 15:25 APTT 155 SECONDS (21-34) H* D 02/23/18 04:38 - Constitutional Appears: Non-toxic, No Acute Distress - Head Exam Head Exam: ATRAUMATIC, NORMOCEPHALIC - Eye Exam Eye Exam: EOMI. absent: Scleral icterus - Respiratory Exam Respiratory Exam: NORMAL BREATHING PATTERN. absent: Respiratory Distress - Cardiovascular Exam Cardiovascular Exam: +S1, +S2 - GI/Abdominal Exam GI & Abdominal Exam: Soft. absent: Distended, Tenderness - Extremities Exam Extremities Exam: Pedal Edema (trace). absent: Calf Tenderness, Tenderness Additional comments: No palpable pulses in L DP and PT. Not dopplerable either. - Neurological Exam Neurological Exam: Alert, Awake - Skin Skin Exam: Dry, Warm Assessment and Plan - Assessment and Plan (Free Text) Assessment: 72M with LLE DVT and LLE occlusion of DP and PT Plan: - Cont anticoagulation - No acute surgical intervention warranted at this time - Continue medical management D/W Dr. Deloris Beauchamp PGY4
--- NOTE | 2018-02-23 14:52 | CP.PCM.CON ---
History of Present Illness - History of Present Illness History of Present Illness: HPI: 72 year old male with pmh COPD, Emphysema, HTN, CAD, DVT, Dementia. Presented to ED after 2 episodes of syncope at senior living. Denies fever, chest pain, shortness of breath, dyspnea, headache, sore throat, rhinorrhea. Positive for sneezing and mild nasal congestion. Medications- symbicort 1 IH bid, albuteral q6h prn, prednisone 10mg po daily, advair 1 puff q12h, flonase, Mirtazapine 1 tab qhs, eliquis 5mg po bid, aricept 5mg qhs, depakote 250mg tid, risperdal 0.5mg daily Allergies- NKDA Surgeries- denied Social- lives in senior living. former smoker 1/2ppd, former drinker 2-3beers daily, denied drug use 02/22 CXR- hyperinflation 02/22 VQ scan- low probability PE 02/[address]- no evidence of PE, pleural effusion, or pneumothorax Review of Systems - Review of Systems All systems: reviewed and no additional remarkable complaints except Past Patient History - Past Medical History & Family History Past Medical History?: Yes Past Family History: Reviewed and not pertinent - Past Social History Smoking Status: Former Smoker - CARDIAC Hx Hypertension: Yes - PULMONARY Hx Chronic Obstructive Pulmonary Disease (COPD): Yes - NEUROLOGICAL Hx Dementia: Yes - HEENT Hx HEENT Problems: No Hx Cataracts: Yes - RENAL Hx Chronic Kidney Disease: No - ENDOCRINE/METABOLIC Hx Endocrine Disorders: Yes Hx Diabetes Mellitus Type 2: Yes - HEMATOLOGICAL/ONCOLOGICAL Hx Blood Disorders: No - INTEGUMENTARY Hx Dermatological Problems: No - MUSCULOSKELETAL/RHEUMATOLOGICAL Hx Arthritis: Yes - GASTROINTESTINAL Hx Gastrointestinal Disorders: No - GENITOURINARY/GYNECOLOGICAL Hx Genitourinary Disorders: No - PSYCHIATRIC Hx Anxiety: Yes Hx Substance Use: No - SURGICAL HISTORY Hx Surgeries: No - ANESTHESIA Hx Anesthesia: No Meds Allergies/Adverse Reactions: Allergies Allergy/AdvReac Type Severity Reaction Status Date / Time shellfish derived Allergy ANAPHYLAXIS Verified 02/22/18 14:59 - Medications Medications: Current Medications Acetaminophen (Tylenol 325mg Tab) 650 mg PO Q6 PRN PRN Reason: Fever >100.4 F Albuterol Sulfate (Albuterol 0.083% Inhal Josey (2.5 Mg/3 Ml) Ud) 2.5 mg INH Q6 PRN PRN Reason: Shortness of Breath Last Admin: 02/22/18 21:34 Dose: 2.5 mg Clotrimazole (Lotrimin 1%) 0 gm EXT HS [facility] Last Admin: 02/22/18 22:23 Dose: 1 applic Donepezil HCl (Aricept) 5 mg PO HS [facility] Last Admin: 02/22/18 22:23 Dose: 5 mg Famotidine (Pepcid) 20 mg PO BID [facility] Last Admin: 02/23/18 10:59 Dose: 20 mg Fluticasone/Vilanterol (Breo Ellipta 100-25 Mcg Inh) 1 puff INH RQ24 [facility] Vancomycin HCl 1 gm/ Sodium (Chloride) 250 mls @ 166.7 mls/hr IVPB Q24H [facility]; Protocol Lactated Ringer's (Lactated Ringer's) 1,000 mls @ 100 mls/hr IV .Q10H [facility] Last Admin: 02/22/18 19:23 Dose: 100 mls/hr Heparin Sodium/Sodium Chloride (Heparin 93937 Units/250ml 1/2 Normal Saline) 25,000 units in 250 mls @ 10.342 mls/hr IV .Q24H PRN; Protocol PRN Reason: ADJUST RATE PER PROTOCOL Last Admin: 02/23/18 06:10 Dose: 15 units/kg/hr, 10.342 mls/hr Mirtazapine (Remeron) 7.5 mg PO HS [facility] Last Admin: 02/22/18 22:24 Dose: 7.5 mg Prednisone (Prednisone Tab) 10 mg PO DAILY [facility] Last Admin: 02/23/18 10:59 Dose: 10 mg Risperidone (Risperdal Tab) 0.5 mg PO Q8H [facility] Last Admin: 02/23/18 11:00 Dose: 0.5 mg Valproate Sodium (Depakene Cap) 250 mg PO TID [facility] Last Admin: 02/23/18 10:59 Dose: 250 mg Physical Exam - Head Exam Head Exam: ATRAUMATIC, NORMOCEPHALIC - ENT Exam ENT Exam: Mucous Membranes Moist - Neck Exam Neck exam: Positive for: Normal Inspection - Respiratory Exam Respiratory Exam: Decreased Breath Sounds - Cardiovascular Exam Cardiovascular Exam: REGULAR RHYTHM - GI/Abdominal Exam GI & Abdominal Exam: Normal Bowel Sounds, Soft - Neurological Exam Neurological exam: Alert Results - Vital Signs Recent Vital Signs: Last Vital Signs Temp 98.2 F 02/23/18 07:00 Pulse 99 H 02/23/18 07:00 Resp 20 02/23/18 07:00 BP 144/71 02/23/18 07:00 Pulse Ox 100 02/23/18 14:02 - Labs Result Diagrams: 02/23/18 04:38 02/23/18 06:35 Labs: Laboratory Results - last 24 hr 02/22/18 02/22/18 02/22/18 15:04 15:25 15:25 WBC 16.9 H RBC 3.82 L Hgb 10.0 L D Hct 31.8 L MCV 83.4 D MCH 26.1 L MCHC 31.3 L RDW 18.1 H Plt Count 361 MPV 7.5 Neut % (Auto) 67.1 Lymph % (Auto) 22.2 [place] % (Auto) 9.1 Eos % (Auto) 1.1 Baso % (Auto) 0.5 Neut # (Auto) 11.3 H Lymph # (Auto) 3.7 [place] # (Auto) 1.5 H Eos # (Auto) 0.2 Baso # (Auto) 0.1 PT 12.4 H INR 1.1 APTT 28 pO2 VBG pH VBG pCO2 VBG HCO3 VBG Total CO2 VBG O2 Sat (Calc) VBG Base Excess VBG Potassium Glucose Lactate Sodium Potassium Chloride Carbon Dioxide Anion Gap BUN Creatinine Est GFR ( Amer) Est GFR (Non-Af Amer) POC Glucose (mg/dL) 120 H Random Glucose Lactic Acid Calcium Phosphorus Magnesium Total Bilirubin AST ALT Alkaline Phosphatase Total Creatine Kinase CK-MB (Mass) Troponin I NT-Pro-B Natriuret Pep Total Protein Albumin Globulin Albumin/Globulin Ratio Venous Blood Potassium Urine Color Urine Clarity Urine pH Ur Specific Mc[place]s Urine Protein Urine Glucose (UA) Urine Ketones Urine Blood Urine Nitrate Urine Bilirubin Urine Urobilinogen Ur Leukocyte Esterase Urine WBC (Auto) Urine RBC (Auto) Ur Squamous Epith Cells Urine Bacteria Stool Occult Blood Influenza Typ A,B (EIA) 02/22/18 02/22/18 02/22/18 15:25 15:25 15:29 WBC RBC Hgb Hct MCV MCH MCHC RDW Plt Count MPV Neut % (Auto) Lymph % (Auto) [place] % (Auto) Eos % (Auto) Baso % (Auto) Neut # (Auto) Lymph # (Auto) [place] # (Auto) Eos # (Auto) Baso # (Auto) PT INR APTT pO2 20 L VBG pH 7.31 L VBG pCO2 52 VBG HCO3 22.4 VBG Total CO2 27.8 VBG O2 Sat (Calc) 28.4 L VBG Base Excess -0.8 L VBG Potassium 4.1 Glucose 103 Lactate 3.7 H Sodium 138 141.0 Potassium 4.3 Chloride 102 106.0 Carbon Dioxide 24 Anion Gap 16 BUN 24 H Creatinine 1.2 Est GFR ( Amer) > 60 Est GFR (Non-Af Amer) 60 POC Glucose (mg/dL) Random Glucose 107 Lactic Acid Calcium 8.6 Phosphorus Magnesium Total Bilirubin 0.3 AST 19 ALT 26 Alkaline Phosphatase 48 Total Creatine Kinase 61 CK-MB (Mass) 1.19 Troponin I < 0.0120 NT-Pro-B Natriuret Pep 60.9 Total Protein 6.6 Albumin 3.7 Globulin 2.9 Albumin/Globulin Ratio 1.3 Venous Blood Potassium 4.1 Urine Color Urine Clarity Urine pH Ur Specific [place] Urine Protein Urine Glucose (UA) Urine Ketones Urine Blood Urine Nitrate Urine Bilirubin Urine Urobilinogen Ur Leukocyte Esterase Urine WBC (Auto) Urine RBC (Auto) Ur Squamous Epith Cells Urine Bacteria Stool Occult Blood Positive H Influenza Typ A,B (EIA) 02/22/18 02/22/18 02/22/18 16:09 16:45 18:19 WBC RBC Hgb Hct MCV MCH MCHC RDW Plt Count MPV Neut % (Auto) Lymph % (Auto) [place] % (Auto) Eos % (Auto) Baso % (Auto) Neut # (Auto) Lymph # (Auto) [place] # (Auto) Eos # (Auto) Baso # (Auto) PT INR APTT pO2 VBG pH VBG pCO2 VBG HCO3 VBG Total CO2 VBG O2 Sat (Calc) VBG Base Excess VBG Potassium Glucose Lactate Sodium Potassium Chloride Carbon Dioxide Anion Gap BUN Creatinine Est GFR ( Amer) Est GFR (Non-Af Amer) POC Glucose (mg/dL) Random Glucose Lactic Acid Calcium Phosphorus 4.5 Magnesium 2.1 Total Bilirubin AST ALT Alkaline Phosphatase Total Creatine Kinase CK-MB (Mass) Troponin I NT-Pro-B Natriuret Pep Total Protein Albumin Globulin Albumin/Globulin Ratio Venous Blood Potassium Urine Color Yellow Urine Clarity Hazy Urine pH 5.0 Ur Specific [place] 1.019 Urine Protein Negative Urine Glucose (UA) Normal Urine Ketones Negative Urine Blood 1+ H Urine Nitrate Negative Urine Bilirubin Negative Urine Urobilinogen Normal Ur Leukocyte Esterase Neg Urine WBC (Auto) 7 H Urine RBC (Auto) 4 H Ur Squamous Epith Cells < 1 Urine Bacteria Rare Stool Occult Blood Influenza Typ A,B (EIA) Negative for flu a/b 02/22/18 02/22/18 02/22/18 18:35 21:21 23:54 WBC RBC Hgb Hct MCV MCH MCHC RDW Plt Count MPV Neut % (Auto) Lymph % (Auto) [place] % (Auto) Eos % (Auto) Baso % (Auto) Neut # (Auto) Lymph # (Auto) [place] # (Auto) Eos # (Auto) Baso # (Auto) PT INR APTT pO2 27 L VBG pH 7.36 VBG pCO2 41 VBG HCO3 21.8 VBG Total CO2 24.5 VBG O2 Sat (Calc) 52.7 VBG Base Excess -2.2 L VBG Potassium 4.1 Glucose 70 L Lactate 3.4 H Sodium 139.0 Potassium Chloride 111.0 H Carbon Dioxide Anion Gap BUN Creatinine Est GFR ( Amer) Est GFR (Non-Af Amer) POC Glucose (mg/dL) 81 Random Glucose Lactic Acid 1.1 Calcium Phosphorus Magnesium Total Bilirubin AST ALT Alkaline Phosphatase Total Creatine Kinase CK-MB (Mass) Troponin I NT-Pro-B Natriuret Pep Total Protein Albumin Globulin Albumin/Globulin Ratio Venous Blood Potassium 4.1 Urine Color Urine Clarity Urine pH Ur Specific [place] Urine Protein Urine Glucose (UA) Urine Ketones Urine Blood Urine Nitrate Urine Bilirubin Urine Urobilinogen Ur Leukocyte Esterase Urine WBC (Auto) Urine RBC (Auto) Ur Squamous Epith Cells Urine Bacteria Stool Occult Blood Influenza Typ A,B (EIA) 02/23/18 02/23/18 02/23/18 04:38 04:38 06:16 WBC 9.9 RBC 3.33 L Hgb 8.8 L Hct 27.5 L MCV 82.7 MCH 26.6 L MCHC 32.1 L RDW 18.0 H Plt Count 295 MPV 7.5 Neut % (Auto) 58.5 Lymph % (Auto) 30.0 [place] % (Auto) 9.3 Eos % (Auto) 1.8 Baso % (Auto) 0.4 Neut # (Auto) 5.8 Lymph # (Auto) 3.0 [place] # (Auto) 0.9 H Eos # (Auto) 0.2 Baso # (Auto) 0.0 PT INR APTT 155 H* D pO2 VBG pH VBG pCO2 VBG HCO3 VBG Total CO2 VBG O2 Sat (Calc) VBG Base Excess VBG Potassium Glucose Lactate Sodium Potassium Chloride Carbon Dioxide Anion Gap BUN Creatinine Est GFR ( Amer) Est GFR (Non-Af Amer) POC Glucose (mg/dL) 82 Random Glucose Lactic Acid Calcium Phosphorus Magnesium Total Bilirubin AST ALT Alkaline Phosphatase Total Creatine Kinase CK-MB (Mass) Troponin I NT-Pro-B Natriuret Pep Total Protein Albumin Globulin Albumin/Globulin Ratio Venous Blood Potassium Urine Color Urine Clarity Urine pH Ur Specific [place] Urine Protein Urine Glucose (UA) Urine Ketones Urine Blood Urine Nitrate Urine Bilirubin Urine Urobilinogen Ur Leukocyte Esterase Urine WBC (Auto) Urine RBC (Auto) Ur Squamous Epith Cells Urine Bacteria Stool Occult Blood Influenza Typ A,B (EIA) 02/23/18 02/23/18 02/23/18 06:35 11:47 14:14 WBC RBC Hgb Hct MCV MCH MCHC RDW Plt Count MPV Neut % (Auto) Lymph % (Auto) [place] % (Auto) Eos % (Auto) Baso % (Auto) Neut # (Auto) Lymph # (Auto) [place] # (Auto) Eos # (Auto) Baso # (Auto) PT INR APTT 98 H D pO2 VBG pH VBG pCO2 VBG HCO3 VBG Total CO2 VBG O2 Sat (Calc) VBG Base Excess VBG Potassium Glucose Lactate Sodium 138 Potassium 3.9 Chloride 108 H Carbon Dioxide 28 Anion Gap 7 L BUN 14 Creatinine 0.7 L Est GFR ( Amer) > 60 Est GFR (Non-Af Amer) > 60 POC Glucose (mg/dL) 83 Random Glucose 81 Lactic Acid Calcium 7.9 L Phosphorus Magnesium Total Bilirubin 0.2 AST 14 L D ALT 24 Alkaline Phosphatase 46 Total Creatine Kinase CK-MB (Mass) Troponin I NT-Pro-B Natriuret Pep Total Protein 5.2 L Albumin 2.7 L D Globulin 2.5 Albumin/Globulin Ratio 1.1 Venous Blood Potassium Urine Color Urine Clarity Urine pH Ur Specific [place] Urine Protein Urine Glucose (UA) Urine Ketones Urine Blood Urine Nitrate Urine Bilirubin Urine Urobilinogen Ur Leukocyte Esterase Urine WBC (Auto) Urine RBC (Auto) Ur Squamous Epith Cells Urine Bacteria Stool Occult Blood Influenza Typ A,B (EIA) Assessment & Plan (1) COPD (chronic obstructive pulmonary disease) Status: Acute (2) DVT (deep venous thrombosis) Status: Acute
[2018-02-23] MEDS: Lactated Ringer's 1,000 ML IV SCH (15:48)
[2018-02-23] MEDS: Albuterol 0.083% Inhal Sol (2.5 mg/3 mL) UD INH PRN (18:50)
[2018-02-23 20:53] LABS: HEMOGLOBIN 8.5 g/dL (12.0-18.0)
[2018-02-23] MEDS: Clotrimazole 1% Cream 15 GM TUBE EXT SCH (22:09)
[2018-02-24] MEDS: Lactated Ringer's 1,000 ML IV SCH ×3 (00:11→21:53)
[2018-02-24] MEDS ORDERED: Heparin25000 units/250ml 1/2NS 25,000 UNITS/250 ML BAG IV PRN ×3 (05:00→22:00)
[2018-02-24 07:01] LABS: BASO # 0.1 K/uL (0.0-0.2); BASO % 0.5 % (0.0-2.0); EOS # 0.2 K/uL (0.0-0.7); EOS % 1.7 % (0.0-4.0); HEMOGLOBIN 9.1 g/dL (12.0-18.0); LYMPH # 3.7 K/uL (1.0-4.3); LYMPH % 33.4 % (20.0-40.0); MEAN CELL VOLUME 83.1 fL (80.0-94.0); MEAN CORPUSCULAR HEMOGLOBIN 26.2 pg (27.0-31.0); MEAN CORPUSCULAR HGB CONC 31.5 g/dL (33.0-37.0); MONO # 1.1 K/uL (0.0-0.8); MONO % 9.7 % (0.0-10.0); NEUT % 54.7 % (50.0-75.0); NRBC % 0.1 % (0.0-2.0); RBC 3.46 Mil/uL (4.40-5.90); RED CELL DISTRIBUTION WIDTH 17.6 % (11.5-14.5)
[2018-02-24 07:34] LABS: ALBUMIN 2.8 g/dL (3.5-5.0); ALT/SGPT 20 U/L (21-72); AST/SGOT 19 U/L (17-59); BLOOD UREA NITROGEN 8 mg/dL (9-20); CALCIUM 7.8 mg/dl (8.6-10.4); GFR NON-AFRICAN AMERICAN > 60
--- NOTE | 2018-02-24 07:45 | CP.PCM.PN ---
<Per Cardoza - Last Filed: 02/24/18 11:08> Subjective - Date & Time of Evaluation Date of Evaluation: 02/24/18 Time of Evaluation: 07:40 - Subjective Subjective: Per Cardoza PGY1 Progress Note for Dr. Kern Pt was examined at bedside this morning. He says he feels "lousy". He reports improvement of his shortness of breath. He denies dizziness, chest pain, abdominal pain, nausea, vomiting, leg pain, diarrhea, dysuria. Objective - Vital Signs/Intake and Output Vital Signs (last 24 hours): Temp Pulse Resp BP Pulse Ox 98.0 F 82 20 157/70 H 99 02/23/18 15:50 02/24/18 01:00 02/23/18 15:50 02/23/18 15:50 02/23/18 15:50 Intake and Output: 02/24/18 02/24/18 06:59 18:59 Intake Total 872 Output Total 400 Balance 472 - Medications Medications: Current Medications Acetaminophen (Tylenol 325mg Tab) 650 mg PO Q6 PRN PRN Reason: Fever >100.4 F Albuterol Sulfate (Albuterol 0.083% Inhal Josey (2.5 Mg/3 Ml) Ud) 2.5 mg INH Q6 PRN PRN Reason: Shortness of Breath Last Admin: 02/23/18 18:50 Dose: 2.5 mg Clotrimazole (Lotrimin 1%) 0 gm EXT HS [facility] Last Admin: 02/23/18 22:09 Dose: 1 applic Donepezil HCl (Aricept) 5 mg PO HS [facility] Last Admin: 02/23/18 22:10 Dose: 5 mg Famotidine (Pepcid) 20 mg PO BID [facility] Last Admin: 02/23/18 17:47 Dose: 20 mg Fluticasone/Vilanterol (Breo Ellipta 100-25 Mcg Inh) 1 puff INH RQ24 [facility] Vancomycin HCl 1 gm/ Sodium (Chloride) 250 mls @ 166.7 mls/hr IVPB Q24H [facility]; Protocol Last Admin: 02/23/18 17:47 Dose: 166.7 mls/hr Lactated Ringer's (Lactated Ringer's) 1,000 mls @ 100 mls/hr IV .Q10H [facility] Last Admin: 12/20/18 00:11 Dose: 100 mls/hr Heparin Sodium/Sodium Chloride (Heparin 27197 Units/250ml 1/2 Normal Saline) 25,000 units in 250 mls @ 9.398 mls/hr IV .Q24H PRN; Protocol PRN Reason: ADJUST RATE PER PROTOCOL Last Admin: 02/24/18 06:11 Dose: 14 units/kg/hr, 9.398 mls/hr Mirtazapine (Remeron) 7.5 mg PO HS [facility] Last Admin: 02/23/18 22:04 Dose: 7.5 mg Prednisone (Prednisone Tab) 10 mg PO DAILY [facility] Last Admin: 02/23/18 10:59 Dose: 10 mg Risperidone (Risperdal Tab) 0.5 mg PO Q8H [facility] Last Admin: 02/24/18 03:27 Dose: 0.5 mg Valproate Sodium (Depakene Cap) 250 mg PO TID [facility] Last Admin: 02/23/18 17:48 Dose: 250 mg - Labs Labs: 02/24/18 06:52 02/24/18 06:52 PT 12.4 SECONDS (9.7-12.2) H 02/22/18 15:25 INR 1.1 02/22/18 15:25 APTT 137 SECONDS (21-34) H* D 02/24/18 04:09 - Additional Findings Additional findings: - Constitutional Appears: Chronically Ill - Head Exam Head Exam: ATRAUMATIC, NORMOCEPHALIC - Eye Exam Eye Exam: EOMI, Normal appearance, PERRL Pupil Exam: NORMAL ACCOMODATION - ENT Exam ENT Exam: Mucous Membranes Moist - Respiratory Exam Respiratory Exam: Chest Wall Tenderness, Rhonchi, Respiratory Distress. absent: Rales, Wheezes, NORMAL BREATHING PATTERN - Cardiovascular Exam Cardiovascular Exam: Tachycardia, REGULAR RHYTHM, +S1, +S2. absent: Gallop, Rubs, Systolic Murmur - GI/Abdominal Exam GI & Abdominal Exam: Normal Bowel Sounds, Soft. absent: Distended, Firm, Tender ness - Extremities Exam Extremities exam: Negative for: pedal edema, tenderness. - Neurological Exam Neurological exam: Alert, CN II-XII Intact Additional comments: AAOx2, to person and place - Psychiatric Exam Psychiatric exam: Normal Affect, Normal Mood - Skin Skin Exam: Scaly, greasy macules on eyebrows and perinasaly b/l Assessment and Plan - Assessment and Plan (Free Text) Assessment: 72yo M with PMH DVT, CAD, CHF, COPD, Dementia, HTN brought to ED from [facility] for syncopal episode. Code Sepsis was called. Pt found to have DVT in LLE. V/Q scan low likelihood PE. Plan: DVT - Doppler US: LLE DVT and arterial occlusion - h/o DVT - V/Q scan: low probability of PE - CT angio: no PE - hold eliquis - heparin drip as per protocol - PTT q6h - Vasc Sx consulted, Dr. Puentes - no sx intervention at this time, continue medical management. recs appreciated SIRS, improved - code sepsis called, although no identifiable source of infection - pt afebrile, no leukocytosis - rpt lactate 1.1 - CXR: no infiltrates - CT head: generalized atrophy, ventricular prominence - UA neg for leukocyte esterase - UCx neg - BCx neg - LR @100cc/hr - vanco 1g IV q24h COPD - CXR: COPD - albuterol 2.5 INH q6 PRN - breo-elipta 1 puff q24h - prednisone 10mg PO daily - NC 2L PRN - scopolamine patch for secretions - Pulm consulted, Dr. Blankenship - f/u recs Dementia - donepizil 5mg PO HS - risperdal 0.5mg PO q8h - depakote 250mg PO TID - mirtazipine 7.5mg PO HS Sebborheic Dermatitis - ketoconazole 2% cream BID PPX GI: pepcid HHD Pt seen and case reviewed with Dr. Kern <Carlos Kern Jr. - Last Filed: 02/28/18 15:31> Objective - Vital Signs/Intake and Output Vital Signs (last 24 hours): Temp Pulse Resp BP Pulse Ox 98.5 F 79 20 150/68 96 02/26/18 07:30 18 07:30 02/26/18 07:30 02/26/18 07:30 02/26/18 07:30 - Labs Labs: 02/26/18 07:04 02/26/18 07:04 PT 12.4 SECONDS (9.7-12.2) H 12/18/18 15:25 INR 1.1 02/22/18 15:25 APTT 64 SECONDS (21-34) H D 02/25/18 01:24 Attending/Attestation - Attestation I have personally seen and examined this patient.: Yes I have fully participated in the care of the patient.: Yes I have reviewed all pertinent clinical information, including history, physical exam and plan: Yes Notes (Text): 02/28/18 15:31 reviewed resident note, agree with findings and plan of care.
--- NOTE | 2018-02-24 17:33 | CP.PCM.PN ---
Subjective - Date & Time of Evaluation Date of Evaluation: 02/24/18 Time of Evaluation: 10:40 - Subjective Subjective: HPI: 72 year old male with pmh COPD, Emphysema, HTN, CAD, DVT, Dementia. Shortness of breath has improved. Reports still some cough and congestion. Denies fever, chest pain, shortness of breath, dyspnea, headache, sore throat, rhinorrhea. PE: patient evaluated at bedside, laying comfortably in bed on 2LPM O2 via NC. Normal inspiratory effort. Decreased breath sounds WBC 11 Influenza negative, Cultures no growth 02/22 CXR- hyperinflation 02/22 VQ scan- low probability PE 02/[address]- no evidence of PE, pleural effusion, or pneumothorax Continue oxygen, albuterol, steroids Objective - Vital Signs/Intake and Output Vital Signs (last 24 hours): Temp Pulse Resp BP Pulse Ox 97.7 F 75 20 128/68 97 02/24/18 07:00 02/24/18 07:00 02/24/18 07:00 02/24/18 07:00 02/24/18 07:00 Intake and Output: 02/24/18 02/24/18 06:59 18:59 Intake Total 872 100 Output Total 400 Balance 472 100 - Medications Medications: Current Medications Acetaminophen (Tylenol 325mg Tab) 650 mg PO Q6 PRN PRN Reason: Fever >100.4 F Albuterol Sulfate (Albuterol 0.083% Inhal Josey (2.5 Mg/3 Ml) Ud) 2.5 mg INH Q6 PRN PRN Reason: Shortness of Breath Last Admin: 02/23/18 18:50 Dose: 2.5 mg Clotrimazole (Lotrimin 1%) 0 gm EXT HS [facility] Last Admin: 02/23/18 22:09 Dose: 1 applic Donepezil HCl (Aricept) 5 mg PO HS [facility] Last Admin: 02/23/18 22:10 Dose: 5 mg Famotidine (Pepcid) 20 mg PO BID [facility] Last Admin: 02/24/18 09:57 Dose: 20 mg Fluticasone/Vilanterol (Breo Ellipta 100-25 Mcg Inh) 1 puff INH RQ24 [facility] Vancomycin HCl 1 gm/ Sodium (Chloride) 250 mls @ 166.7 mls/hr IVPB Q24H [facility]; Protocol Last Admin: 02/23/18 17:47 Dose: 166.7 mls/hr Lactated Ringer's (Lactated Ringer's) 1,000 mls @ 100 mls/hr IV .Q10H [facility] Last Admin: 02/24/18 15:18 Dose: Not Given Heparin Sodium/Sodium Chloride (Heparin 56668 Units/250ml 1/2 Normal Saline) 25,000 units in 250 mls @ 7.385 mls/hr IV .Q24H PRN; Protocol PRN Reason: ADJUST RATE PER PROTOCOL Ketoconazole (Nizoral) 1 gm TOP BID [facility] Last Admin: 02/24/18 15:18 Dose: Not Given Mirtazapine (Remeron) 7.5 mg PO HS [facility] Last Admin: 02/23/18 22:04 Dose: 7.5 mg Prednisone (Prednisone Tab) 10 mg PO DAILY [facility] Last Admin: 02/24/18 09:57 Dose: 10 mg Risperidone (Risperdal Tab) 0.5 mg PO Q8H [facility] Last Admin: 02/24/18 09:57 Dose: 0.5 mg Scopolamine (Transderm-Scop) 1 patch TD Q3D [facility] Last Admin: 02/24/18 15:18 Dose: Not Given Valproate Sodium (Depakene Cap) 250 mg PO TID [facility] Last Admin: 02/24/18 15:17 Dose: 250 mg - Labs Labs: 02/24/18 06:52 02/24/18 06:52 PT 12.4 SECONDS (9.7-12.2) H 02/22/18 15:25 INR 1.1 02/22/18 15:25 APTT 229 SECONDS (21-34) H* D 02/24/18 11:05 Assessment and Plan (1) COPD (chronic obstructive pulmonary disease) Status: Acute (2) DVT (deep venous thrombosis) Status: Acute
[2018-02-24] MEDS: Clotrimazole 1% Cream 15 GM TUBE EXT SCH (21:57)
[2018-02-25] MEDS: Lactated Ringer's 1,000 ML IV SCH (07:25)
--- NOTE | 2018-02-25 10:50 | CP.PCM.DIS ---
Provider - Provider Date of Admission: 02/22/18 18:05 Attending physician: Carlos Kern Jr, MD Consults: 02/22/18 18:44 Physician Consult Stat Comment: Consulting Provider: Shiva Puentes Jr. Consulting Physician: Shiva Puentes Jr. Reason for Consult: pt w/ DVT and arterial occlusion. thank you 02/22/18 20:21 Social Work Referral Routine Comment: lives in or Physician Instructions: [facility] Exam[facility] 02/23/18 10:57 Pulmonology Consult Routine Comment: Consulting Provider: Miguel Blankenship Consulting Physician: Miguel Blankenship Reason for Consult: pt with SOB and DVT, CT angio neg. please eval for CPAP Time Spent in preparation of Discharge (in minutes): 70 Hospital Course - Lab Results Lab Results: Micro Results 02/22/18 16:42 Blood Blood Culture - Preliminary NO GROWTH AFTER 48 HOURS 02/22/18 16:08 Blood Blood Culture - Preliminary NO GROWTH AFTER 48 HOURS 02/22/18 16:45 Urine Urine Culture - Final No Growth (<1,000 CFU/ML) Most Recent Lab Values WBC 11.0 K/uL (4.8-10.8) H 02/24/18 06:52 RBC 3.46 Mil/uL (4.40-5.90) L 02/24/18 06:52 Hgb 9.1 g/dL (12.0-18.0) L 02/24/18 06:52 Hct 28.8 % (35.0-51.0) L 02/24/18 06:52 MCV 83.1 fL (80.0-94.0) 02/24/18 06:52 MCH 26.2 pg (27.0-31.0) L 02/24/18 06:52 MCHC 31.5 g/dL (33.0-37.0) L 02/24/18 06:52 RDW 17.6 % (11.5-14.5) H 02/24/18 06:52 Plt Count 285 K/uL (130-400) 02/24/18 06:52 MPV 8.0 fL (7.2-11.7) 02/24/18 06:52 Neut % (Auto) 54.7 % (50.0-75.0) 02/24/18 06:52 Lymph % (Auto) 33.4 % (20.0-40.0) 02/24/18 06:52 [place] % (Auto) 9.7 % (0.0-10.0) 02/24/18 06:52 Eos % (Auto) 1.7 % (0.0-4.0) 02/24/18 06:52 Baso % (Auto) 0.5 % (0.0-2.0) 02/24/18 06:52 Neut # (Auto) 6.0 K/uL (1.8-7.0) 02/24/18 06:52 Lymph # (Auto) 3.7 K/uL (1.0-4.3) 02/24/18 06:52 [place] # (Auto) 1.1 K/uL (0.0-0.8) H 02/24/18 06:52 Eos # (Auto) 0.2 K/uL (0.0-0.7) 02/24/18 06:52 Baso # (Auto) 0.1 K/uL (0.0-0.2) 02/24/18 06:52 PT 12.4 SECONDS (9.7-12.2) H 02/22/18 15:25 INR 1.1 02/22/18 15:25 APTT 64 SECONDS (21-34) H D 02/25/18 01:24 pO2 27 mm/Hg (30-55) L 02/22/18 18:35 VBG pH 7.36 (7.32-7.43) 02/22/18 18:35 VBG pCO2 41 mmHg (40-60) 18 18:35 VBG HCO3 21.8 mmol/L 02/22/18 18:35 VBG Total CO2 24.5 mmol/L (22-28) 02/22/18 18:35 VBG O2 Sat (Calc) 52.7 % (40-65) 02/22/18 18:35 VBG Base Excess -2.2 mmol/L (0.0-2.0) L 02/22/18 18:35 VBG Potassium 4.1 mmol/L (3.6-5.2) 18 18:35 Sodium 139.0 mmol/l (132-148) 02/22/18 18:35 Chloride 111.0 mmol/L (98-107) H 02/22/18 18:35 Glucose 70 mg/dl (75-110) L 02/22/18 18:35 Lactate 3.4 mmol/L (0.7-2.1) H 02/22/18 18:35 Sodium 139 mmol/L (132-148) 02/24/18 06:52 Potassium 3.7 mmol/L (3.6-5.2) 02/24/18 06:52 Chloride 108 mmol/L (98-107) H 02/24/18 06:52 Carbon Dioxide 26 mmol/L (22-30) 02/24/18 06:52 Anion Gap 9 (10-20) L 02/24/18 06:52 BUN 8 mg/dL (9-20) L 02/24/18 06:52 Creatinine 0.6 mg/dL (0.8-1.5) L 02/24/18 06:52 Est GFR ( Amer) > 60 02/24/18 06:52 Est GFR (Non-Af Amer) > 60 02/24/18 06:52 POC Glucose (mg/dL) 88 mg/dL (65-110) 02/24/18 11:54 Random Glucose 79 mg/dL (75-110) 02/24/18 06:52 Lactic Acid 1.1 mmol/L (0.7-2.1) 02/22/18 23:54 Calcium 7.8 mg/dl (8.6-10.4) L 02/24/18 06:52 Phosphorus 4.5 mg/dL (2.5-4.5) 02/22/18 16:09 Magnesium 2.1 mg/dL (1.6-2.3) 02/22/18 16:09 Total Bilirubin 0.2 mg/dL (0.2-1.3) 02/24/18 06:52 AST 19 U/L (17-59) 02/24/18 06:52 ALT 20 U/L (21-72) L 02/24/18 06:52 Alkaline Phosphatase 46 U/L (38-126) 02/24/18 06:52 Total Creatine Kinase 61 U/L (55-170) 02/22/18 15:25 CK-MB (Mass) 1.19 ng/mL (0.0-3.38) 02/22/18 15:25 Troponin I < 0.0120 ng/mL (0.00-0.120) 02/22/18 15:25 NT-Pro-B Natriuret Pep 60.9 pg/mL (0-900) 02/22/18 15:25 Total Protein 5.5 g/dL (6.3-8.3) L 02/24/18 06:52 Albumin 2.8 g/dL (3.5-5.0) L 02/24/18 06:52 Globulin 2.8 gm/dL (2.2-3.9) 02/24/18 06:52 Albumin/Globulin Ratio 1.0 (1.0-2.1) 02/24/18 06:52 Venous Blood Potassium 4.1 mmol/L (3.6-5.2) 02/22/18 18:35 Urine Color Yellow (YELLOW) 02/22/18 16:45 Urine Clarity Hazy (Clear) 02/22/18 16:45 Urine pH 5.0 (5.0-8.0) 02/22/18 16:45 Ur Specific [place] 1.019 (1.003-1.030) 02/22/18 16:45 Urine Protein Negative mg/dL (NEGATIVE) 02/22/18 16:45 Urine Glucose (UA) Normal mg/dL (Normal) 02/22/18 16:45 Urine Ketones Negative mg/dL (NEGATIVE) 02/22/18 16:45 Urine Blood 1+ (NEGATIVE) H 02/22/18 16:45 Urine Nitrate Negative (NEGATIVE) 02/22/18 16:45 Urine Bilirubin Negative (NEGATIVE) 02/22/18 16:45 Urine Urobilinogen Normal mg/dL (0.2-1.0) 02/22/18 16:45 Ur Leukocyte Esterase Neg Diego/uL (Negative) 02/22/18 16:45 Urine WBC (Auto) 7 /hpf (0-5) H 02/22/18 16:45 Urine RBC (Auto) 4 /hpf (0-3) H 02/22/18 16:45 Ur Squamous Epith Cells < 1 /hpf (0-5) 02/22/18 16:45 Urine Bacteria Rare (<OCC) 02/22/18 16:45 Stool Occult Blood Positive (NEGATIVE) H 02/22/18 15:25 Influenza Typ A,B (EIA) Negative for flu a/b (NEGATIVE) 02/22/18 18:19 - Hospital Course Hospital Course: Upon Admission: Pt is a 72yo M with PMH DVT, CAD, CHF, COPD, Dementia, HTN brought to ED from [facility] for syncopal episode. As per nurse from [facility], patient passed out 8 hours ago. Patient was given fluids, vitals were measured and blood pressure was low. Pt had 2 episodes of syncope as per sister at bedside. Pt cannot recall episodes at this time. He denies feeling sick, dizzy, or losing consciousness. Pt reports mild shortness of breath and chest pain. He denies fever, chills, nausea, vomiting, abdominal pain, dysuria. Pt was found to have DVT and arterial occlusion in LLE. Pt was admitted to [facility]. Hospital Course: Heparin drip DVT protocol was started. V/Q scan and CT angio were negative for PE. Pt was restarted on home medications. Pulmonology was consulted and recommended continuation with nebulizer treatment and steroids. PTT was monitored and heparin was adjusted accordingly. Pt was switched back to home eliquis and deemed stable for discharge. Upon Discharge: Pt was discharged back to [facility] at [place] with instructions to follow up with his primary care doctor. Pt was discharged on home medications and added mucinex. Discharge Exam - Head Exam Head Exam: ATRAUMATIC, NORMOCEPHALIC - Eye Exam Eye Exam: EOMI, Normal appearance Pupil Exam: NORMAL ACCOMODATION - Respiratory Exam Respiratory Exam: Decreased Breath Sounds, NORMAL BREATHING PATTERN. absent: Respiratory Distress - Cardiovascular Exam Cardiovascular Exam: REGULAR RHYTHM, +S1, +S2. absent: Gallop, Rubs, Systolic Murmur - GI/Abdominal Exam GI & Abdominal Exam: Normal Bowel Sounds, Soft. absent: Distended, Firm, Tenderness - Extremities Exam Extremities exam: normal inspection - Neurological Exam Neurological exam: Normal Gait, Oriented x3 - Psychiatric Exam Psychiatric exam: Normal Affect, Normal Mood - Skin Skin Exam: Dry Additional comments: greasy scale on eyebrows and perinasaly Discharge Plan - Discharge Medications Prescriptions: Acetaminophen [Tylenol 325mg tab] 2 tab PO Q4 PRN #60 tab PRN Reason: Pain, Mild (1-3) Albuterol 0.083% [Albuterol 0.083% Inhal Josey (2.5 mg/3 ml) UD] 3 ml INH Q6 PRN 30 Days neb PRN Reason: Shortness Of Breath Ammonium Lactate 12% [Lac-Hydrin 12% Cream (140 g)] 1 gm TP BID #1 tube Apixaban [Eliquis] 5 mg PO BID #60 tablet Budesonide/Formoterol Fumarate [Symbicort 160-4.5 Mcg Inhaler] 1 aer IH BID 30 Days hfa.aer.ad Clotrimazole 1% [Lotrimin AF 1%] 10 applic EXT HS #1 bottle Divalproex [Depakote ER] 250 mg PO TID [address] Donepezil [Aricept] 5 mg PO HS #30 tab Fluticasone Propionate [Flonase Allergy Relief] 9.9 ml NS DAILY 30 Days spray.susp Fluticasone/Salmeterol 250/50 [Advair Diskus 250/50] 1 puff INH RQ12 30 Days puff guaiFENesin [Mucinex LA] 600 mg PO BID #12 tab Mirtazapine [Remeron] 1 tab PO HS #30 tab predniSONE [predniSONE Tab] 10 mg PO DAILY #10 tab risperiDONE [RisperDAL Tab] 0.5 mg PO Q8H 30 Days tab Scopolamine 1 mg/72 hr [Transderm-Scop] 1 patch TD Q3D #10 patch - Follow Up Plan Condition: STABLE Disposition: NURSING FACILITY MEDICAID CERT Additional Instructions: Please follow up with your primary care physician within 1 week. Please take your medications as prescribed. Please return to the emergency department if symptoms return. Take care and be well. Por favor leland un seguimiento con hidalgo mdico de atencin primaria dentro de 1 semana. Por favor, tome dexter medicamentos segn lo prescrito. Por favor regrese al departamento de emergencias si los sntomas regresan. Cudate y sintete [place].
[2018-02-25] MEDS: guaiFENesin 600 mg ER Tab PO SCH ×2 (11:32→18:44)
--- NOTE | 2018-02-25 11:33 | CP.PCM.PN ---
<Per Cardoza - Last Filed: 02/25/18 11:30> Subjective - Date & Time of Evaluation Date of Evaluation: 02/25/18 Time of Evaluation: 11:30 - Subjective Subjective: Per Cardoza PGY1 Progress note for Dr. Kern Pt was reevaluated this morning. He denies shortness of breath, chest pain, dizziness. He is confused. Objective - Vital Signs/Intake and Output Vital Signs (last 24 hours): Temp Pulse Resp BP Pulse Ox 98.7 F 88 18 132/70 96 02/25/18 07:00 02/25/18 07:00 02/25/18 07:00 02/25/18 07:00 02/25/18 07:00 Intake and Output: 02/25/18 02/25/18 06:59 18:59 Intake Total 1254.8 Balance 1254.8 - Medications Medications: Current Medications Acetaminophen (Tylenol 325mg Tab) 650 mg PO Q6 PRN PRN Reason: Fever >100.4 F Albuterol Sulfate (Albuterol 0.083% Inhal Josey (2.5 Mg/3 Ml) Ud) 2.5 mg INH Q6 PRN PRN Reason: Shortness of Breath Last Admin: 02/23/18 18:50 Dose: 2.5 mg Apixaban (Eliquis) 5 mg PO BID ALVARO Clotrimazole (Lotrimin 1%) 0 gm EXT HS [facility] Last Admin: 02/24/18 21:57 Dose: 1 applic Donepezil HCl (Aricept) 5 mg PO HS [facility] Last Admin: 02/24/18 21:51 Dose: 5 mg Famotidine (Pepcid) 20 mg PO BID [facility] Last Admin: 02/25/18 09:31 Dose: 20 mg Fluticasone/Vilanterol (Breo Ellipta 100-25 Mcg Inh) 1 puff INH RQ24 [facility] Guaifenesin (Mucinex La) 600 mg PO BID ALVARO Ketoconazole (Nizoral) 1 gm TOP BID [facility] Last Admin: 02/25/18 09:32 Dose: 1 gra Mirtazapine (Remeron) 7.5 mg PO HS [facility] Last Admin: 02/24/18 21:51 Dose: 7.5 mg Prednisone (Prednisone Tab) 10 mg PO DAILY [facility] Last Admin: 02/25/18 09:31 Dose: 10 mg Risperidone (Risperdal Tab) 0.5 mg PO Q8H [facility] Last Admin: 02/25/18 09:33 Dose: 0.5 mg Scopolamine (Transderm-Scop) 1 patch TD Q3D [facility] Last Admin: 02/24/18 15:18 Dose: Not Given Valproate Sodium (Depakene Cap) 250 mg PO TID [facility] Last Admin: 02/25/18 09:33 Dose: 250 mg - Labs Labs: 02/24/18 06:52 02/24/18 06:52 PT 12.4 SECONDS (9.7-12.2) H 02/22/18 15:25 INR 1.1 02/22/18 15:25 APTT 64 SECONDS (21-34) H D 02/25/18 01:24 - Additional Findings Additional findings: - Constitutional Appears: Chronically Ill - Head Exam Head Exam: ATRAUMATIC, NORMOCEPHALIC - Eye Exam Eye Exam: EOMI, Normal appearance, PERRL Pupil Exam: NORMAL ACCOMODATION - ENT Exam ENT Exam: Mucous Membranes Moist - Respiratory Exam Respiratory Exam: congestion, Rhonchi, tachypneic. absent: Rales, Wheezes, NORMAL BREATHING PATTERN - Cardiovascular Exam Cardiovascular Exam: Tachycardia, REGULAR RHYTHM, +S1, +S2. absent: Gallop, Rubs, Systolic Murmur - GI/Abdominal Exam GI & Abdominal Exam: Normal Bowel Sounds, Soft. absent: Distended, Firm, Tenderness - Extremities Exam Extremities exam: Negative for: pedal edema, tenderness. - Neurological Exam Neurological exam: Alert, CN II-XII Intact Additional comments: AAOx2, to person and place - Psychiatric Exam Psychiatric exam: Normal Affect, Normal Mood - Skin Skin Exam: Scaly, greasy macules on eyebrows and perinasaly b/l Assessment and Plan - Assessment and Plan (Free Text) Assessment: 72yo M with PMH DVT, CAD, CHF, COPD, Dementia, HTN brought to ED from [facility] for syncopal episode. Code Sepsis was called. Pt found to have DVT in LLE. V/Q scan low likelihood PE. Pt tachypneic and congestion, hold d/c. F/u rpt CXR and ABG. Plan: DVT - Doppler US: LLE DVT and arterial occlusion - h/o DVT - V/Q scan: low probability of PE - CT angio: no PE - d/c heparin - restart home eliquis - PTT wnl - Vasc Sx consulted, Dr. Puentes - no sx intervention at this time, continue medical management. recs appreciated SIRS, improved - code sepsis called, although no identifiable source of infection - pt afebrile, no leukocytosis - rpt lactate 1.1 - CXR: no infiltrates - CT head: generalized atrophy, ventricular prominence - UA neg for leukocyte esterase - UCx neg - BCx neg - LR @100cc/hr - vanco 1g IV q24h COPD - f/u repeat CXR and ABG - CXR: COPD - albuterol 2.5 INH q6 PRN - breo-elipta 1 puff q24h - prednisone 10mg PO daily - NC 2L PRN - scopolamine patch for secretions - Pulm consulted, Dr. Blankenship - f/u recs Dementia - donepizil 5mg PO HS - risperdal 0.5mg PO q8h - depakote 250mg PO TID - mirtazipine 7.5mg PO HS Sebborheic Dermatitis - ketoconazole 2% cream BID PPX GI: pepcid HHD Pt seen and case reviewed with Dr. Kern <Carlos Kern Jr. - Last Filed: 02/28/18 15:29> Objective - Vital Signs/Intake and Output Vital Signs (last 24 hours): Temp Pulse Resp BP Pulse Ox 98.5 F 79 20 150/68 96 02/26/18 07:30 02/26/18 07:30 02/26/18 07:30 02/26/18 07:30 02/26/18 07:30 - Labs Labs: 02/26/18 07:04 02/26/18 07:04 PT 12.4 SECONDS (9.7-12.2) H 02/22/18 15:25 INR 1.1 02/22/18 15:25 APTT 64 SECONDS (21-34) H D 02/25/18 01:24 Attending/Attestation - Attestation I have personally seen and examined this patient.: Yes I have fully participated in the care of the patient.: Yes I have reviewed all pertinent clinical information, including history, physical exam and plan: Yes Notes (Text): 02/28/18 15:29 reviewed resident note, agree with findings and plan of care.
--- NOTE | 2018-02-25 11:37 | RAD ---
Date of service: 02/25/2018 HISTORY: congestion, shortness of breath COMPARISON: 02/22/2018. FINDINGS: LUNGS: The lungs are well inflated and clear. PLEURA: No pleural effusions or pneumothorax. CARDIOVASCULAR: The heart is normal in size. There are aortic atherosclerotic calcifications present. OSSEOUS STRUCTURES: Within normal limits for the patient's age. VISUALIZED UPPER ABDOMEN: Normal. OTHER FINDINGS: None. IMPRESSION: No active pulmonary disease.
--- NOTE | 2018-02-25 13:19 | CP.PCM.PN ---
Subjective - Date & Time of Evaluation Date of Evaluation: 02/25/18 Time of Evaluation: 11:45 - Subjective Subjective: HPI: 72 year old male with pmh COPD, Emphysema, HTN, CAD, DVT, Dementia. Patient evaluated at bedside. Appears confused and continues to try to get out of bed. Patient short of breath, tachypnic, and congested. Diminished breath sounds. Denies fever, cough, chest pain. 02/25 CXR- prominent hilar markings. Follow results of ABG/ Continue oxygen, albuterol, steroids Objective - Vital Signs/Intake and Output Vital Signs (last 24 hours): Temp Pulse Resp BP Pulse Ox 98.7 F 88 18 132/70 96 02/25/18 07:00 02/25/18 07:00 02/25/18 07:00 02/25/18 07:00 02/25/18 07:00 Intake and Output: 02/25/18 02/25/18 06:59 18:59 Intake Total 1254.8 Balance 1254.8 - Medications Medications: Current Medications Acetaminophen (Tylenol 325mg Tab) 650 mg PO Q6 PRN PRN Reason: Fever >100.4 F Albuterol Sulfate (Albuterol 0.083% Inhal Josey (2.5 Mg/3 Ml) Ud) 2.5 mg INH Q6 PRN PRN Reason: Shortness of Breath Last Admin: 02/23/18 18:50 Dose: 2.5 mg Apixaban (Eliquis) 5 mg PO BID [facility] Last Admin: 02/25/18 11:33 Dose: 5 mg Clotrimazole (Lotrimin 1%) 0 gm EXT HS [facility] Last Admin: 02/24/18 21:57 Dose: 1 applic Donepezil HCl (Aricept) 5 mg PO HS [facility] Last Admin: 02/24/18 21:51 Dose: 5 mg Famotidine (Pepcid) 20 mg PO BID [facility] Last Admin: 02/25/18 09:31 Dose: 20 mg Fluticasone/Vilanterol (Breo Ellipta 100-25 Mcg Inh) 1 puff INH RQ24 [facility] Guaifenesin (Mucinex La) 600 mg PO BID [facility] Last Admin: 02/25/18 11:32 Dose: 600 mg Ketoconazole (Nizoral) 1 gm TOP BID [facility] Last Admin: 02/25/18 09:32 Dose: 1 gra Mirtazapine (Remeron) 7.5 mg PO HS [facility] Last Admin: 02/24/18 21:51 Dose: 7.5 mg Prednisone (Prednisone Tab) 10 mg PO DAILY [facility] Last Admin: 02/25/18 09:31 Dose: 10 mg Risperidone (Risperdal Tab) 0.5 mg PO Q8H [facility] Last Admin: 02/25/18 09:33 Dose: 0.5 mg Scopolamine (Transderm-Scop) 1 patch TD Q3D [facility] Last Admin: 02/24/18 15:18 Dose: Not Given Valproate Sodium (Depakene Cap) 250 mg PO TID [facility] Last Admin: 02/25/18 09:33 Dose: 250 mg - Labs Labs: 02/24/18 06:52 02/24/18 06:52 PT 12.4 SECONDS (9.7-12.2) H 02/22/18 15:25 INR 1.1 02/22/18 15:25 APTT 64 SECONDS (21-34) H D 02/25/18 01:24 Assessment and Plan (1) COPD (chronic obstructive pulmonary disease) Status: Acute (2) DVT (deep venous thrombosis) Status: Acute
[2018-02-25 13:47] LABS: ABG ALLEN TEST POS; ARTERIAL BLOOD GAS HCO3 26.4 mmol/L (21-28); ARTERIAL BLOOD GAS O2 SAT 98.3 % (95-98); ARTERIAL BLOOD GAS PCO2 40 mm/Hg (35-45); ARTERIAL BLOOD GAS PH 7.43 (7.35-7.45); ARTERIAL BLOOD GAS PO2 75 mm/Hg (80-100); ARTERIAL BLOOD GAS TCO2 27.7 mmol/L (22-28)
[2018-02-25] MEDS: Albuterol 0.083% Inhal Sol (2.5 mg/3 mL) UD INH PRN (18:31)
[2018-02-25] MEDS: Clotrimazole 1% Cream 15 GM TUBE EXT SCH (21:18)
[2018-02-26 03:01] VITALS: RESP 20; TEMP 98.5
[2018-02-26 07:18] LABS: BASO # 0.1 K/uL (0.0-0.2); BASO % 0.7 % (0.0-2.0); EOS # 0.1 K/uL (0.0-0.7); EOS % 1.3 % (0.0-4.0); HEMOGLOBIN 9.9 g/dL (12.0-18.0); LYMPH # 2.8 K/uL (1.0-4.3); LYMPH % 28.9 % (20.0-40.0); MEAN CORPUSCULAR HEMOGLOBIN 26.5 pg (27.0-31.0); MEAN CORPUSCULAR HGB CONC 32.3 g/dL (33.0-37.0); MEAN PLATELET VOLUME 7.9 fL (7.2-11.7); MONO # 1.2 K/uL (0.0-0.8); MONO % 12.3 % (0.0-10.0); NEUT # 5.6 K/uL (1.8-7.0); NEUT % 56.8 % (50.0-75.0); RBC 3.74 Mil/uL (4.40-5.90); RED CELL DISTRIBUTION WIDTH 17.3 % (11.5-14.5); WHITE BLOOD COUNT 9.8 K/uL (4.8-10.8)
[2018-02-26 07:49] LABS: ALB/GLOB RATIO 1.1 (1.0-2.1); ALBUMIN 3.1 g/dL (3.5-5.0); ALT/SGPT 22 U/L (21-72); AST/SGOT 22 U/L (17-59); BLOOD UREA NITROGEN 9 mg/dL (9-20); CALCIUM 8.4 mg/dl (8.6-10.4); GFR NON-AFRICAN AMERICAN > 60
[2018-02-26 08:29] VITALS: BP 150/68; PULSE 79; O2SAT 96
[2018-02-26] MEDS: guaiFENesin 600 mg ER Tab PO SCH (09:39)
[2018-02-26] MEDS: Albuterol 0.083% Inhal Sol (2.5 mg/3 mL) UD INH PRN (10:13)
== END 2018-02-26 12:56 | DRG 299 ==
LOC: C.ER 14:53 → C.9E 18:05 → C.6T 18:42
PROVIDERS: ADMIT Internal Medicine; ATTEND Internal Medicine
DX: I82.412 Acute embolism and thrombosis of left femoral vein (principal); A41.9 Sepsis, unspecified organism; R65.10 Systemic inflammatory response syndrome (SIRS) of non-infectious origin without acute organ dysfunction; R55 Syncope and collapse; I11.0 Hypertensive heart disease with heart failure; I50.9 Heart failure, unspecified; I25.10 Atherosclerotic heart disease of native coronary artery without angina pectoris; F03.90 Unspecified dementia, unspecified severity, without behavioral disturbance, psychotic disturbance, mood disturbance, and anxiety; J44.9 Chronic obstructive pulmonary disease, unspecified; E11.9 Type 2 diabetes mellitus without complications; Z79.51 Long term (current) use of inhaled steroids; Z79.01 Long term (current) use of anticoagulants; K21.9 Gastro-esophageal reflux disease without esophagitis; Z86.718 Personal history of other venous thrombosis and embolism; Z87.891 Personal history of nicotine dependence